=== PATIENT | female | born 1960 | race Caucasian/White ===

== ENCOUNTER 2017-02-06 22:22 | Emergency (ER) | payer MEDICARE, MEDICAID ==
[2017-02-06 22:43] VITALS: BP 161/79
--- NOTE | 2017-02-06 23:22 | EDM.PDOC ---
[id number]: LEG IS BLEEDING Time Seen by Provider: 02/06/17 23:10 Source of Information: Reports: Patient, Family History Limitations: Reports: No Limitations - History of Present Illness INITIAL COMMENTS - FREE TEXT/NARRATIVE: 56-year-old female who has lower extremity edema and has problems with slow healing of wounds and has a history of unna boot treatment was in the shower tonight and rubbed against her lower leg and started bleeding. It was persistent so she came in to have it checked. Now the bleeding seems to be controlled. She does not take anticoagulants. Onset: Sudden (This evening) Location: Reports: Lower Extremity, Left Associated Symptoms: Reports: No Other Symptoms - Related Data Allergies Allergy/AdvReac Type Severity Reaction Status Date / Time adhesive tape Allergy Rash Verified 02/06/17 22:47 cephalexin [From Keflex] Allergy Rash Verified 02/06/17 22:47 Home Meds: Home Meds Calcium Carbonate [Oyster Shell Calcium] 1 cap PO DAILY 02/06/17 [History] Cholecalciferol (Vitamin D3) [Vitamin D3] 1 cap PO DAILY 02/06/17 [History] Cyanocobalamin (Vitamin B-12) [Cyanocobalamin Injection] 1,000 mcg IJ ASDIRECTED 02/06/17 [History] Latanoprost [Xalatan 0.005% Ophth Soln] 2.5 ml EYEBOTH BEDTIME 02/06/17 [History ] Vitamin B Complex [B Complex] 1 cap PO DAILY 02/06/17 [History] Past Medical History HEENT History: Reports: Glaucoma, Macular Degeneration Respiratory History: Reports: Asthma, COPD, Sleep Apnea Other Respiratory History: c-pap Gastrointestinal History: Reports: Cholelithiasis Other Gastrointestinal History: small bowel obstruction SHOWER MAID History: Reports: Dysfunctional Uterine Bleeding Musculoskeletal History: Reports: Other (See Below) Other Musculoskeletal History: degenrative disc lower back Endocrine/Metabolic History: Reports: Diabetes, Type II, Obesity/BMI 30+ Hematologic History: Reports: B12 Deficiency, Iron Deficiency Dermatologic History: Reports: Venous Stasis Dermatitis - Infectious Disease History Infectious Disease History: Reports: Chicken Pox, Measles - Past Surgical History GI Surgical History: Reports: Bariatric Procedure, Cholecystectomy, Colonoscopy , EGD, Hernia Repair/Other, Small Bowel Female Surgical History: Reports: Hysterectomy, Salpingo-Oophorectomy Musculoskeletal Surgical History: Reports: Hip Replacement, Knee Replacement, Shoulder Surgery Other Musculoskeletal Surgeries/Procedures:: all on the right side Social & Family History - Tobacco Use Smoking Status *Q: Never Smoker Second Hand Smoke Exposure: Yes - Caffeine Use Caffeine Use: Reports: Coffee - Recreational Drug Use Recreational Drug Use: No ED ROS GENERAL - Review of Systems Review Of Systems: See Below Constitutional: Denies: Fever, Chills Respiratory: Denies: Shortness of Breath Cardiovascular: Denies: Chest Pain GI/Abdominal: Denies: Nausea, Vomiting Neurological: Denies: Headache Psychiatric: Reports: No Symptoms ED EXAM, SKIN/RASH Exam: See Below Exam Limited By: No Limitations General Appearance: Alert, No Apparent Distress Respiratory/Chest: No Respiratory Distress Extremities: Other (Exam is otherwise limited to the lower extremities. She does have pitting edema bilaterally, and a few superficial abrasions on the left lower anterior leg. They are very shallow and do not appear to extend into subcutaneous tissue. Bleeding is now controlled.) Course - Vital Signs Last Recorded V/S: Last Vital Signs Temp 97.3 F 02/06/17 22:46 Pulse 75 02/06/17 22:46 Resp 20 02/06/17 22:46 BP 161/79 H 02/06/17 22:46 Pulse Ox 98 02/06/17 22:46 - Re-Assessments/Exams Free Text/Narrative Re-Assessment/Exam: 02/06/17 23:21 Nursing applied some Tegaderm over the abrasions and pressure was reapplied. Patient can recheck in the next 1-2 days she has problems or concerns. Avoid any further traumatic irritation of the lower legs Departure - Departure Time of Disposition: 23:38 Disposition: Home, Self-Care 01 Condition: Good Clinical Impression: Leg abrasion, non-infected - Discharge Information Instructions: Abrasion Referrals: Machelle Contreras MD [Primary Care Provider] - Forms: ED Department Discharge Care Plan Goals: Keep wounds covered while healing. Recheck if concerns of infection or not healing satisfactorily.
== END 2017-02-06 23:41 | disposition home or self-care (01) ==
LOC: JP.ED 22:22
DX: S80.812A Abrasion, left lower leg, initial encounter (principal); J45.909 Unspecified asthma, uncomplicated; H40.9 Unspecified glaucoma; E11.9 Type 2 diabetes mellitus without complications; E66.9 Obesity, unspecified; Z68.41 Body mass index [BMI] 40.0-44.9, adult; Z90.49 Acquired absence of other specified parts of digestive tract; Z90.710 Acquired absence of both cervix and uterus; Z96.649 Presence of unspecified artificial hip joint; Z96.659 Presence of unspecified artificial knee joint; Z88.1 Allergy status to other antibiotic agents; Z79.899 Other long term (current) drug therapy; Z98.84 Bariatric surgery status; X58.XXXA Exposure to other specified factors, initial encounter
CPT/HCPCS: 99282; 99283

== ENCOUNTER 2017-06-05 07:25 | Inpatient (IN) | payer MEDICARE, MEDICAID ==
[2017-06-05] MEDS ORDERED: Sodium Chloride 0.9% 10 ML Syringe FLUSH PRN (07:55)
[2017-06-05] MEDS ORDERED: HYDROmorphone 0.5 MG/0.5 ML Syringe IVPUSH ONE ×2 (07:56→08:59)
[2017-06-05] MEDS ORDERED: Ondansetron 4 MG/2 ML SDV IVPUSH ONE (07:56)
[2017-06-05] MEDS ORDERED: Sodium Chloride 0.9% 1,000 ML IV SCH (08:00)
--- NOTE | 2017-06-05 09:04 | EDM.PDOC ---
ED HPI GENERAL MEDICAL PROBLEM - General Chief Complaint: Abdominal Pain Stated Complaint: stomach is HURTING Time Seen by Provider: 06/05/17 07:55 Source of Information: Reports: Patient History Limitations: Reports: No Limitations - History of Present Illness INITIAL COMMENTS - FREE TEXT/NARRATIVE: Pt arrived with pain in the midabdoman. She is not passing gas. She is nauseated but not vomiting. She has a history of bowel obstructions. Onset: Today, Other (pt was well yesterday. ) Duration: Hour(s):, Getting Worse Location: Reports: Abdomen Associated Symptoms: Reports: Nausea/Vomiting, Other ( Pt is nauseated but has not vomited. ) - Related Data Allergies Allergy/AdvReac Type Severity Reaction Status Date / Time adhesive tape Allergy Rash Verified 02/06/17 22:47 cephalexin [From Keflex] Allergy Rash Verified 02/06/17 22:47 Home Meds: Home Meds Calcium Carbonate [Oyster Shell Calcium] 1 cap PO DAILY 02/06/17 [History] Cholecalciferol (Vitamin D3) [Vitamin D3] 1 cap PO DAILY 02/06/17 [History] Cyanocobalamin (Vitamin B-12) [Cyanocobalamin Injection] 1,000 mcg IJ ASDIRECTED 02/06/17 [History] Latanoprost [Xalatan 0.005% Ophth Soln] 2.5 ml EYEBOTH BEDTIME 02/06/17 [History ] Vitamin B Complex [B Complex] 1 cap PO DAILY 02/06/17 [History] Past Medical History HEENT History: Reports: Glaucoma, Macular Degeneration Respiratory History: Reports: Asthma, COPD, Sleep Apnea Other Respiratory History: c-pap Gastrointestinal History: Reports: Cholelithiasis Other Gastrointestinal History: small bowel obstruction HEDIS COORDINATOR History: Reports: Dysfunctional Uterine Bleeding Musculoskeletal History: Reports: Other (See Below) Other Musculoskeletal History: degenrative disc lower back Endocrine/Metabolic History: Reports: Diabetes, Type II, Obesity/BMI 30+ Hematologic History: Reports: B12 Deficiency, Iron Deficiency Dermatologic History: Reports: Venous Stasis Dermatitis - Infectious Disease History Infectious Disease History: Reports: Chicken Pox, Measles - Past Surgical History GI Surgical History: Reports: Bariatric Procedure, Cholecystectomy, Colonoscopy , EGD, Hernia Repair/Other, Small Bowel Female Surgical History: Reports: Hysterectomy, Salpingo-Oophorectomy Musculoskeletal Surgical History: Reports: Hip Replacement, Knee Replacement, Shoulder Surgery Other Musculoskeletal Surgeries/Procedures:: all on the right side Social & Family History - Tobacco Use Smoking Status *Q: Never Smoker Second Hand Smoke Exposure: Yes - Caffeine Use Caffeine Use: Reports: Coffee - Recreational Drug Use Recreational Drug Use: No ED ROS GENERAL - Review of Systems Review Of Systems: See Below Constitutional: Reports: Decreased Appetite HEENT: Reports: No Symptoms Respiratory: Reports: No Symptoms Cardiovascular: Reports: No Symptoms Endocrine: Reports: No Symptoms GI/Abdominal: Reports: Abdominal Pain, Other (pt has pain in mid abdoman. She is post skinny and post rny. ) : Reports: No Symptoms Musculoskeletal: Reports: No Symptoms Skin: Reports: No Symptoms ED EXAM, GI/ABD - Physical Exam Exam: See Below Text/Narrative:: Pt arrived having severe mid abdomanal pain. She is nauseated but is not vomiting. She is bringing alot of mucous in her throat. Exam Limited By: No Limitations General Appearance: Alert, Moderate Distress, Other ( pupils are equal and reactive. ) Eyes: Bilateral: Normal Appearance, EOMI Ears: Normal TMs Nose: Normal Inspection Throat/Mouth: Normal Inspection Head: Atraumatic Neck: Normal Inspection Respiratory/Chest: No Respiratory Distress Cardiovascular: Regular Rate, Rhythm GI/Abdominal Exam: Tender, Other ( Pt has considerable tenderness in the mid abdoman. ) (Female) Exam: Deferred Rectal (Female) Exam: Deferred, Other ( Pt did not have a stool today but has otherwise been regular. ) Back Exam: Normal Inspection Extremities: Normal Inspection Neurological: Alert, Oriented, Normal Cognition Psychiatric: Anxious Course - Vital Signs Last Recorded V/S: Last Vital Signs Temp 36.6 C 06/05/17 08:34 Pulse 83 06/05/17 09:04 Resp 20 06/05/17 09:04 BP 149/64 H 06/05/17 09:04 Pulse Ox 98 06/05/17 09:04 - Orders/Labs/Meds Orders: Active Orders 24 hr Category Date Time Status Abdomen Pelvis w Cont [CT] Stat Exams 06/05/17 09:01 Taken Abdomen Series w Chest 1V [CR] Urgent Exams 06/05/17 07:57 Taken FERRITIN [CHEM] Stat Lab 06/05/17 10:47 Ordered LIPASE [CHEM] Stat Lab 06/05/17 10:49 Ordered UA W/MICROSCOPIC [URIN] Urgent Lab 06/05/17 07:55 Uncollected Iopamidol [Isovue-300 (61%)] Med 06/05/17 09:39 Active 150 ml IV . DIRECTED PRN Pantoprazole [ProTONIX IV] Med 06/05/17 11:00 Ordered 80 mg IVPUSH .BOLUS Sodium Chloride 0.9% [Normal Saline] 1,000 ml Med 06/05/17 08:00 Active IV ASDIRECTED Sodium Chloride 0.9% [Normal Saline] 85 ml Med 06/05/17 09:45 Active IV ASDIRECTED Sodium Chloride 0.9% [Saline Flush] Med 06/05/17 07:55 Active 10 ml FLUSH ASDIRECTED PRN Saline Lock Insert [OM.PC] Routine Oth 06/05/17 07:55 Ordered Medication Orders Sodium Chloride (Normal Saline) 1,000 mls @ 999 mls/hr IV ASDIRECTED NAHEED Last Admin: 06/05/17 08:07 Dose: 999 mls/hr Sodium Chloride (Normal Saline) 85 mls @ 3.5 mls/sec IV ASDIRECTED NAHEED Last Admin: 06/05/17 09:57 Dose: 3 mls/sec Iopamidol (Isovue-300 (61%)) 150 ml IV . DIRECTED PRN PRN Reason: RADIOLOGY EXAM Stop: 06/06/17 09:40 Last Admin: 06/05/17 09:57 Dose: 150 ml Pantoprazole Sodium (Protonix Iv) 80 mg IVPUSH .BOLUS NAHEED Sodium Chloride (Saline Flush) 10 ml FLUSH ASDIRECTED PRN PRN Reason: Keep Vein Open Last Admin: 06/05/17 08:05 Dose: 10 ml Labs: Laboratory Tests 06/05/17 06/05/17 06/05/17 Range/Units 08:04 08:04 08:04 WBC 8.2 (4.5-11.0) K/uL RBC 3.15 L (3.30-5.50) M/uL Hgb 9.6 L (12.0-15.0) g/dL Hct 29.8 L (36.0-48.0) % MCV 95 (80-98) fL MCH 31 (27-31) pg MCHC 32 (32-36) % Plt Count 300 (150-400) K/uL Neut % (Auto) 86 H (36-66) % Lymph % (Auto) 7 L (24-44) % [place] % (Auto) 5 (2-6) % Eos % (Auto) 1 L (2-4) % Baso % (Auto) 0 (0-1) % Sodium 141 (140-148) mmol/L Potassium 4.3 (3.6-5.2) mmol/L Chloride 104 (100-108) mmol/L Carbon Dioxide 32 (21-32) mmol/L Anion Gap 5.4 (5.0-14.0) mmol/L BUN 10 (7-18) mg/dL Creatinine 0.7 (0.6-1.0) mg/dL Est Cr Clr Drug Dosing 69.28 mL/min Estimated GFR (MDRD) > 60 (>60) Glucose 129 H (74-106) mg/dL Calcium 8.8 (8.5-10.1) mg/dL Total Bilirubin 0.6 (0.2-1.0) mg/dL AST 33 (15-37) U/L ALT 25 (12-78) U/L Alkaline Phosphatase 85 (46-116) U/L C-Reactive Protein 4.41 H (0.0-0.3) mg/dL Total Protein 6.3 L (6.4-8.2) g/dL Albumin 3.2 L (3.4-5.0) g/dL Globulin 3.1 (2.3-3.5) g/dL Albumin/Globulin Ratio 1.0 L (1.2-2.2) Meds: Medications Generic Name Dose Route Start Last Admin Trade Name Freq PRN Reason Stop Dose Admin Sodium Chloride 1,000 mls @ 999 mls/hr 06/05/17 08:00 06/05/17 08:07 Normal Saline IV 999 mls/hr ASDIRECTED NAHEED Administration Sodium Chloride 85 mls @ 3.5 mls/sec 06/05/17 09:45 06/05/17 09:57 Normal Saline IV 3 mls/sec ASDIRECTED NAHEED Administration Iopamidol 150 ml 06/05/17 09:39 06/05/17 09:57 Isovue-300 (61%) IV 06/06/17 09:40 150 ml . DIRECTED PRN Administration RADIOLOGY EXAM Pantoprazole Sodium 80 mg 06/05/17 11:00 Protonix Iv IVPUSH .BOLUS NAHEED Sodium Chloride 10 ml 06/05/17 07:55 06/05/17 08:05 Saline Flush FLUSH 10 ml ASDIRECTED PRN Administration Keep Vein Open Discontinued Medications Generic Name Dose Route Start Last Admin Trade Name Freq PRN Reason Stop Dose Admin Hydromorphone HCl 0.5 mg 06/05/17 07:56 06/05/17 08:06 Dilaudid IVPUSH 06/05/17 07:57 0.5 mg ONETIME ONE Administration Hydromorphone HCl 0.5 mg 06/05/17 08:59 06/05/17 09:04 Dilaudid IVPUSH 06/05/17 09:00 0.5 mg ONETIME ONE Administration Hydromorphone HCl 1 mg 06/05/17 09:28 06/05/17 09:35 Dilaudid IVPUSH 06/05/17 09:29 1 mg ONETIME ONE Administration Ondansetron HCl 4 mg 06/05/17 07:56 06/05/17 08:05 Zofran IVPUSH 06/05/17 07:57 4 mg ONETIME ONE Administration Sodium Chloride 10 ml 06/05/17 09:39 06/05/17 09:58 Saline Flush FLUSH 06/05/17 09:40 10 ml ONETIME ONE Administration - Re-Assessments/Exams Free Text/Narrative Re-Assessment/Exam: 06/05/17 10:50 pt has a probale small bowel obstruction and possible internal hernia. Dr Metz was consulted and is admitting. 06/05/17 10:56 pt just got out of the hosp. Dr Canas did a total knee on the rt. Departure - Departure Time of Disposition: 10:52 Disposition: Admitted As Inpatient 64 Condition: Fair Clinical Impression: Small bowel obstruction, H/O gastric bypass - Discharge Information Referrals: Machelle Contreras MD [Primary Care Provider] - Forms: ED Department Discharge Care Plan Goals: admit to Dr Metz - My Orders Last 24 Hours: My Active Orders 06/05/17 07:55 UA W/MICROSCOPIC [URIN] Urgent Sodium Chloride 0.9% [Saline Flush] 10 ml FLUSH ASDIRECTED PRN Saline Lock Insert [OM.PC] Routine 06/05/17 07:57 Abdomen Series w Chest 1V [CR] Urgent 06/05/17 08:00 Sodium Chloride 0.9% [Normal Saline] 1,000 ml IV ASDIRECTED 06/05/17 09:01 Abdomen Pelvis w Cont [CT] Stat 06/05/17 09:39 Iopamidol [Isovue-300 (61%)] 150 ml IV . DIRECTED PRN 06/05/17 09:45 Sodium Chloride 0.9% [Normal Saline] 85 ml IV ASDIRECTED 06/05/17 10:47 FERRITIN [CHEM] Stat 06/05/17 10:49 LIPASE [CHEM] Stat 06/05/17 11:00 Pantoprazole [ProTONIX IV] 80 mg IVPUSH .BOLUS - Assessment/Plan Last 24 Hours: My Active Orders 06/05/17 07:55 UA W/MICROSCOPIC [URIN] Urgent Sodium Chloride 0.9% [Saline Flush] 10 ml FLUSH ASDIRECTED PRN Saline Lock Insert [OM.PC] Routine 06/05/17 07:57 Abdomen Series w Chest 1V [CR] Urgent 06/05/17 08:00 Sodium Chloride 0.9% [Normal Saline] 1,000 ml IV ASDIRECTED 06/05/17 09:01 Abdomen Pelvis w Cont [CT] Stat 06/05/17 09:39 Iopamidol [Isovue-300 (61%)] 150 ml IV . DIRECTED PRN 06/05/17 09:45 Sodium Chloride 0.9% [Normal Saline] 85 ml IV ASDIRECTED 06/05/17 10:47 FERRITIN [CHEM] Stat 06/05/17 10:49 LIPASE [CHEM] Stat 06/05/17 11:00 Pantoprazole [ProTONIX IV] 80 mg IVPUSH .BOLUS
[2017-06-05] MEDS ORDERED: HYDROmorphone 1 MG/ML Syringe IVPUSH ONE (09:28)
[2017-06-05] MEDS ORDERED: Sodium Chloride 0.9% 10 ML Syringe FLUSH ONE (09:39)
[2017-06-05] MEDS ORDERED: Iopamidol 612 MG/ML 150 ML Bottle IV PRN (09:39)
[2017-06-05] MEDS ORDERED: Pantoprazole 40 MG Vial IVPUSH SCH (11:00)
[2017-06-05] MEDS ORDERED: Naloxone 0.4 MG/ML SDV IV PRN (11:53)
[2017-06-05] MEDS ORDERED: Ondansetron 4 MG/2 ML SDV IV PRN (11:57)
[2017-06-05] MEDS ORDERED: Lactated Ringers 1,000 ML IV ONE (12:00)
[2017-06-05] MEDS: HYDROmorphone/Normal Saline 15 MG/30 ML PCA IV PRN (12:20)
[2017-06-05] MEDS ORDERED: Meperidine PF 100 MG/ML Syringe IM ONE (12:28)
[2017-06-05] MEDS ORDERED: hydrOXYzine HCl 100 MG/2 ML SDV IM ONE ×2 (12:28→18:21)
[2017-06-05] MEDS ORDERED: Dextrose 5%-Lactated Ringers 1,000 ML IV SCH (16:00)
[2017-06-05] MEDS ORDERED: cefOXitin 2 GM in Sodium Chloride 0.9% 50 ML IV ONE (17:00)
[2017-06-05] MEDS ORDERED: fentaNYL 250 MCG/5 ML SDV ONE (17:30)
[2017-06-05] MEDS ORDERED: Glycopyrrolate 0.2 MG/ML 5 ML MDV ONE (17:30)
[2017-06-05] MEDS ORDERED: Ondansetron 4 MG/2 ML SDV ONE (17:30)
[2017-06-05] MEDS ORDERED: Neostigmine Methylsulfate 1 MG/ML 5 ML Syringe ONE (17:30)
[2017-06-05] MEDS ORDERED: Midazolam 1 MG/ML 2 ML SDV ONE (17:30)
[2017-06-05] MEDS ORDERED: Rocuronium 50 MG/5 ML Vial ONE ×2 (17:30→19:12)
[2017-06-05] MEDS ORDERED: Propofol 200 MG/20 ML SDV ONE (17:30)
[2017-06-05] MEDS ORDERED: Succinylcholine 200 MG/10 ML MDV ONE (17:30)
[2017-06-05] MEDS ORDERED: Dexamethasone 4 MG/ML SDV ONE (17:30)
[2017-06-05] MEDS ORDERED: Ketamine 500 MG/5 ML MDV ONE (17:31)
[2017-06-05] MEDS ORDERED: Sodium Chloride 0.9% 10 ML ONE (17:33)
[2017-06-05] MEDS ORDERED: Meropenem 500 MG SDV ONE (17:34)
[2017-06-05] MEDS ORDERED: Meropenem 500 MG SDV IV ONE (17:34)
[2017-06-05] MEDS ORDERED: Meropenem 500 MG in Sodium Chloride 0.9% 50 ML IV ONE (17:40)
[2017-06-05] MEDS: fentaNYL 12 MCG/HR Transdermal Patch TRDERM SCH (18:40)
[2017-06-05] MEDS ORDERED: Lactated Ringers 1,000 ML IV SCH (22:15)
[2017-06-05] MEDS ORDERED: hydrOXYzine HCl 100 MG/2 ML SDV IM PRN (22:40)
[2017-06-05] MEDS ORDERED: diphenhydrAMINE 50 MG/ML SDV IVPUSH PRN (22:43)
[2017-06-05] MEDS ORDERED: Labetalol 20 MG/4 ML Syringe IVPUSH PRN (22:46)
[2017-06-05] MEDS ORDERED: Insulin Aspart 100 Units/ML 3 ML Pen SUBCUT ONE (22:53)
[2017-06-05] MEDS ORDERED: Metoclopramide 10 MG/2 ML SDV IVPUSH SCH (23:00)
[2017-06-05] MEDS ORDERED: Scopolamine 1.5 MG Transdermal Patch TRDERM SCH (23:00)
[2017-06-05] MEDS ORDERED: Metoclopramide 10 MG/2 ML SDV IVPUSH PRN (23:37)
[2017-06-06] MEDS ORDERED: Heparin Sodium 5,000 Units/ML Vial SUBCUT SCH
[2017-06-06] MEDS ORDERED: Pantoprazole 40 MG Vial IV SCH ×2 (00:05→21:00)
[2017-06-06] MEDS: Acetaminophen Soln 650 MG/20.3 ML UD Cup PO SCH ×5 (00:56→23:25)
[2017-06-06] MEDS: Meropenem 500 MG in Sodium Chloride 0.9% 50 ML IV SCH ×5 (00:56→23:26)
[2017-06-06] MEDS ORDERED: Labetalol 20 MG/4 ML Syringe IVPUSH PRN (01:14)
[2017-06-06] MEDS: Insulin Aspart 100 Units/ML 3 ML Pen SUBCUT SCH ×4 (04:46→22:18)
[2017-06-06] MEDS ORDERED: Dextrose 5%-Lactated Ringers 1,000 ML IV SCH (07:30)
[2017-06-06] MEDS ORDERED: 50% Dextrose in Water 50 ML Syringe IVPUSH PRN (08:00)
[2017-06-06] MEDS ORDERED: Glucagon,Human Recombinant 1 MG Vial IM PRN (08:00)
[2017-06-06] MEDS ORDERED: CHECK FENTANYL 12 MCG SCH (09:00)
[2017-06-06] MEDS ORDERED: CHECK SCOPOLAMINE PATCH DAILY SCH (09:00)
[2017-06-06] MEDS ORDERED: Gabapentin 250 MG/5 ML Solution ML 470 ML Bottle PO SCH (09:00)
[2017-06-06] MEDS: Magnesium Sulfate/Water 2 GM in Premix Bag 1 BAG IV SCH ×3 (09:46→21:18)
[2017-06-06] MEDS: Celecoxib 200 MG Cap PO SCH (09:47)
[2017-06-06] MEDS: CHECK FENTANYL 12 MCG SCH ×2 (09:49→21:18)
[2017-06-06] MEDS: Gabapentin 250 MG/5 ML Solution ML 470 ML Bottle PO SCH ×3 (09:51→21:21)
--- NOTE | 2017-06-06 09:54 | PN ---
DATE OF SERVICE: 06/06/2017 SUBJECTIVE: Alea is postoperative day 1. Her pain has been controlled. She has been confused on and off during the night. Vital signs have been stable. REVIEW OF SYSTEMS: Remainder of review of systems negative for any pertinent positives and negatives. OBJECTIVE: GENERAL: Alea is a 56-year-old female. She is alert and orientated. VITAL SIGNS: TPR is 98.6, 88, 14, blood pressure 133/74. HEENT: Negative. NECK: Supple. HEART: Regular rate and rhythm. LUNGS: Clear. ABDOMEN: Dressings are dry and intact. She has 2 KARISSA drains, one put out 350 of a pink serosanguineous drainage and KARISSA drain 2 put out 5 mL. Abdominal binder has been on. EXTREMITIES: Without peripheral edema. She does have an Aquacel dressing on her right knee. [facility] ASSESSMENT: 1. Insertion of left subclavian triple-lumen catheter. 2. Exploratory laparotomy with resection and revision of the jejunostomy component. 3. Andreia-en-Y gastric bypass surgery. 4. Enterotomy for tube decompression of the small bowel. 5. Closure of gastrostomy tube. 6. Removal of intraperitoneal mesh. 7. For lymphatic peripheral vascular access, obstruction at the jejunostomy secondary to intussusception, and massive dilation of the biliary pancreatic limb of the small bowel and stomach, and gastric mesh eroded into the gastric antrum and contaminated intraperitoneal mesh. Date of surgery 06/05/2017. PLAN: 1. Decrease IV to 100 mL per hour. 2. Step-2 gastric bypass diet without cereal. 3. Communication order written that Physical Therapy is to consult and treat for right knee replacement. To contact [facility] in regard to order. 4. Note communication written to notify Dr. Vigil that the patient is in [place], [place]. 5. Good pulmonary toilet. 6. We will evaluate p.r.n. or in the a.m. Yasmin Osman PA-C /[id number]
--- NOTE | 2017-06-06 11:10 | CR ---
Abdomen Series w Chest 1V HISTORY: Pain COMPARISON: None. FINDINGS: Chest is clear. Cardiac size normal. Bowel gas pattern is nonobstructive. Surgical clips in the upper left abdomen. Right abdomen and pelvis. Moderate stool throughout the colon. No free air s een.
[2017-06-06] MEDS: Heparin Sodium 5,000 Units/ML Vial SUBCUT SCH ×2 (12:04)
[2017-06-06] MEDS: MVI, Adult with Vitamin K 10 ML, Thiamine 200 MG, Chromium/Copper/Mang/Selen/Zn 1 ML in... IV SCH ×4 (15:43)
[2017-06-06] MEDS: Latanoprost 0.005% Ophth Soln 2.5 ML Bottle EYEBOTH SCH (21:17)
[2017-06-07] MEDS: Heparin Sodium 5,000 Units/ML Vial SUBCUT SCH ×3 (00:55→23:24)
[2017-06-07] MEDS: Dextrose 5%-Lactated Ringers 1,000 ML IV SCH ×2 (02:42→13:17)
[2017-06-07] MEDS ORDERED: Iohexol 647 MG/ML 50 ML SDV PO STA (03:58)
[2017-06-07] MEDS: Magnesium Sulfate/Water 2 GM in Premix Bag 1 BAG IV SCH ×4 (04:45→21:27)
[2017-06-07] MEDS: Acetaminophen Soln 650 MG/20.3 ML UD Cup PO SCH ×4 (04:45→23:24)
[2017-06-07] MEDS: Insulin Aspart 100 Units/ML 3 ML Pen SUBCUT SCH ×4 (04:46→22:16)
[2017-06-07] MEDS: Meropenem 500 MG in Sodium Chloride 0.9% 50 ML IV SCH ×3 (06:46→17:37)
[2017-06-07] MEDS: Celecoxib 200 MG Cap PO SCH (08:00)
[2017-06-07] MEDS: CHECK FENTANYL 12 MCG SCH ×2 (08:01→20:36)
[2017-06-07] MEDS: Gabapentin 250 MG/5 ML Solution ML 470 ML Bottle PO SCH ×3 (08:05→20:37)
[2017-06-07] MEDS ORDERED: Cyanocobalamin (Vitamin B12) 1,000 MCG/ML SDV IM ONE (09:00)
--- NOTE | 2017-06-07 09:09 | CR ---
UGI wo KUB HISTORY: Andreia-en-Y revision COMPARISON: CT scan 06/05/2017. FINDINGS: Contrast extends into the gastric remnant to the efferent loop of the Andreia-en-Y. No extrava sation of contrast. No dilated loops of small bowel. Surgical drain in the low left abdomen and pelvi s. No evidence for complication.
[2017-06-07] MEDS: Potassium Phosphates 20 MMOLE in Sodium Chloride 0.9% 100 ML IV SCH ×3 (10:01→16:05)
[2017-06-07] MEDS: HYDROmorphone/Normal Saline 15 MG/30 ML PCA IV PRN (13:58)
[2017-06-07] MEDS: Lansoprazole 30 MG Orally Disintegrating Tab.CR PO SCH (16:34)
[2017-06-07] MEDS: MVI, Adult with Vitamin K 10 ML, Thiamine 200 MG, Chromium/Copper/Mang/Selen/Zn 1 ML in... IV SCH ×4 (16:38)
[2017-06-07] MEDS: Latanoprost 0.005% Ophth Soln 2.5 ML Bottle EYEBOTH SCH (20:38)
[2017-06-08] MEDS: Magnesium Sulfate/Water 2 GM in Premix Bag 1 BAG IV SCH ×4 (03:43→22:06)
[2017-06-08] MEDS: Dextrose 5%-Lactated Ringers 1,000 ML IV SCH ×3 (03:45→21:42)
[2017-06-08] MEDS: Insulin Aspart 100 Units/ML 3 ML Pen SUBCUT SCH (03:56)
[2017-06-08] MEDS: Acetaminophen Soln 650 MG/20.3 ML UD Cup PO SCH ×4 (05:09→23:12)
[2017-06-08] MEDS ORDERED: Insulin Aspart 100 Units/ML 3 ML Pen SUBCUT SCH (07:00)
[2017-06-08] MEDS ORDERED: HYDROmorphone 2 MG Tab PO PRN (07:19)
[2017-06-08] MEDS: Lansoprazole 30 MG Orally Disintegrating Tab.CR PO SCH (09:36)
[2017-06-08] MEDS: CHECK FENTANYL 12 MCG SCH ×2 (09:37→21:02)
[2017-06-08] MEDS: Gabapentin 250 MG/5 ML Solution ML 470 ML Bottle PO SCH ×3 (09:42→21:08)
--- NOTE | 2017-06-08 10:56 | PN ---
DATE OF SERVICE: 06/08/2017 SUBJECTIVE: Alea is postoperative day #3. She has been receiving physical therapy for her right knee total replacement last week. She is using her SPACE CONTROL AGENT. States her pain is controlled. She has had 4 bowel movements. She did receive 1 unit of packed red blood cells yesterday for hemoglobin of 7.6. Hemoglobin today is 8.6. Vital signs have been stable. Oral intake was 2400, and urine output was 1000. KARISSA drain put out 25 mL of a light pink serosanguineous drainage and the KARISSA drain #2, midline incision drainage put out 15 mL of a darker red drainage. Remainder of review of systems negative for any pertinent positives and negatives. OBJECTIVE: GENERAL: Alea Contreras is a 56-year-old female, alert and oriented. VITAL SIGNS: TPR is 97.7, 80, 16. Blood pressure is 152/80. HEENT: Negative. NECK: Supple. HEART: Regular rate and rhythm. LUNGS: Clear. ABDOMEN: Dressing is dry and intact. KARISSA drains x2 intact. Aquacel dressing is on. Abdominal binder has been on. EXTREMITIES: With trace peripheral edema. ASSESSMENT: 1. Insertion of left subclavian triple-lumen catheter. 2. Exploratory laparotomy with resection of the jejunostomy component of Andreia-en-Y gastric bypass surgery, enterotomy for tube decompression of the small bowel, closure of gastrostomy tube, and removal of intraperitoneal mesh for lymphatic peripheral vascular access, obstruction of the jejunostomy secondary to intussusception, massive dilation of the biliopancreatic limb of the small bowel and stomach, gastric mesh eroded into the gastric antrum, and contaminated intraperitoneal mesh. Date of surgery 06/05/2017. 3. Chronic anemia requiring 1 unit of packed red blood cells for hemoglobin of 7.6. PLAN: 1. Give 1 unit of packed red blood cells now. 2. DC SPACE CONTROL AGENT. 3. DC telemetry. 4. DC continuous pulse ox. 5. Dilaudid 2 mg 1-2 every 4 hours p.r.n. pain. 6. Check CBC, CMP, and phos in the a.m. 7. Good pulmonary toilet. 8. We will evaluate p.r.n. or in the a.m. 9. Tentatively plan discharge in the a.m. Yasmin Osman PA-C /[id number]
[2017-06-08] MEDS: Heparin Sodium 5,000 Units/ML Vial SUBCUT SCH (12:03)
[2017-06-08] MEDS: Celecoxib 200 MG Cap PO SCH (12:03)
[2017-06-08] MEDS: MVI, Adult with Vitamin K 10 ML, Thiamine 200 MG, Chromium/Copper/Mang/Selen/Zn 1 ML in... IV SCH ×4 (16:20)
[2017-06-08] MEDS: fentaNYL 12 MCG/HR Transdermal Patch TRDERM SCH (17:59)
[2017-06-08] MEDS: Latanoprost 0.005% Ophth Soln 2.5 ML Bottle EYEBOTH SCH (21:03)
[2017-06-09] MEDS: Heparin Sodium 5,000 Units/ML Vial SUBCUT SCH (00:03)
[2017-06-09] MEDS: Magnesium Sulfate/Water 2 GM in Premix Bag 1 BAG IV SCH (03:57)
[2017-06-09] MEDS: Acetaminophen Soln 650 MG/20.3 ML UD Cup PO SCH ×2 (05:15→11:48)
[2017-06-09] MEDS: Lansoprazole 30 MG Orally Disintegrating Tab.CR PO SCH (08:06)
[2017-06-09] MEDS: Celecoxib 200 MG Cap PO SCH (08:06)
[2017-06-09] MEDS: Gabapentin 250 MG/5 ML Solution ML 470 ML Bottle PO SCH (08:07)
[2017-06-09 09:32] VITALS: BP 127/66
[2017-06-09] MEDS ORDERED: fentaNYL 12 MCG/HR Transdermal Patch TRDERM ONE (12:00)
[2017-06-09] MEDS: CHECK FENTANYL 12 MCG SCH (12:05)
--- NOTE | 2017-06-10 13:17 | PN ---
DATE OF SERVICE: 06/07/2017 The patient has been afebrile with stable vital signs, still a little bit dizzy today after her upper GI. Her hemoglobin did drop into the mid 7s, and we will transfuse her 1 unit of packed RBCs today. She may have some bleeding from GI tract, as I doubt there is any intraperitoneal bleeding based on the appearance of her drains and such. Potassium and phosphate are at the lower end of normal and will supplement those today. Upper GI x-ray looked good with good flow through the GI tract and will go up to step-3 diet today. Discontinue her Armstrong catheter. KARISSA #1 is putting out quite a bit of a serous-type fluid, and we will remove that today to avoid ongoing protein loss, leaving the KARISSA in the incision in place. We will continue the present pain management today, mostly likely getting her over to oral pain medicine tomorrow. Froilan Metz MD /[id number]
--- NOTE | 2017-06-12 15:11 | OR ---
DATE OF PROCEDURE: 06/05/2017 PREOPERATIVE DIAGNOSES: 1. Small bowel obstruction. 2. Limited peripheral venous access. POSTOPERATIVE DIAGNOSES: 1. Limited peripheral venous access. 2. Small bowel obstruction at jejunojejunostomy secondary to intussusception. 3. 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 4. [employer]-Hema mesh eroded into the gastric antrum. 5. Contaminated intraperitoneal mesh. OPERATIVE PROCEDURES: 1. Insertion of left subclavian vein triple-lumen catheter (50212). 2. Exploratory laparotomy with:. a. Resection, revision of jejunojejunostomy component of Andreia-en-Y gastric bypass (96626). b. Tube enterotomy for decompression of the small bowel (51588). c. Closure of gastrotomy at point of mesh eroding into the gastric antrum (09413). d. Removal of intraperitoneal mesh (99709). e. Placement of Vicryl mesh to displace viscera from pelvic and abdominal wall to limit recurrent adhesion formation (18279). ANESTHESIA: General. INDICATION FOR PROCEDURE: The patient was admitted earlier this morning with a picture of small bowel obstruction and on examination, the patient was noted to be increasingly uncomfortable and given this is to undergo laparotomy at this time. It would appear that the patient has an obstructive biliopancreatic limb which would make this is a closed loop obstruction potentially necessitating early surgical treatment. Potential risks of the procedure including bleeding, infection, leaks from various GI tract closures, as well as possibility of cardiopulmonary, septic, or hemorrhagic complications leading to were discussed, and the patient wishes to proceed. DETAILS OF PROCEDURE: The patient was taken to the operating room and placed in a supine position. After general endotracheal anesthesia was induced, a Armstrong catheter was inserted and the abdomen prepped and draped. An upper midline incision was made and carried down through the full thickness of the abdominal wall. Upon entering the peritoneal cavity, as expected, there was a massively distended obstruction of small bowel. This was traced downward and this was noted to be involved in an intussusception with some of the common limb being sucked well into the area of intussusception. The biliopancreatic limb proximal to this was massively dilated as was the bypassed portion of the stomach. At this point, a decision was made to revise and resect the jejunojejunostomy, 3 components leading into that were then divided at the bowel level with SHARLA cisneros loads and the inner mesentery divided with mesenteric loads and the specimen delivered from the field. At this point, the enterotomy was placed at the divided end of the biliopancreatic limb, and a [place] sump tube passed a large volume of air and bilious material was then aspirated. This resulted as nice decompression of the biliopancreatic limb including the duodenum and the bypassed portion of the stomach. At that point, the catheter was withdrawn and that area then stapled off with a SHARLA stapler. The revision of the jejunojejunostomy as anticipated with preoperative discussion with the patient would be designed such that it should facilitate some improved additional weight loss. The plan is at this point to give the patient 150 cm Andreia limb and a 200 cm common limb. Additionally, the bowel that consisted of the divided end of the biliopancreatic limb was anastomosed to what had been beginning of the common limb with a [id number] enteroenterostomy with a layer stapler technique using cisneros and purple loads, angles anastomosed, and mesenteric defect were then approximated with some 0 Ethibond stitch. At this point, the Andreia limb was then traced out in order to be 130 cm. Given this, then the ileocecal valve was identified and the small bowel then traced back 200 cm proximal to that level. The [id number] enteroenterostomy was accomplished between the end of the Andreia limb and the bowel at that level with the same stapler and sequence of loads and the angles anastomosed and mesenteric defect likewise closed off with 2-0 silk stitch. One additional area of pathology was that the patient had a previous replaced [employer] Randolph-Hema mesh. This was obviously potentially contaminated at this point. It was also noted to have eroded into the antrum of the stomach as the mesh was then being taken out with division of the abdominal wall downward to the point of the entrance into the antrum was encountered. This was dissected free from the antrum. The closure of the antrum was then accomplished with a SHARLA black load, reinforced with 3-0 Vicryl seromuscular stitch. At this point, with the mesh having been removed, the abdomen was irrigated with meropenem-containing saline solution to limit recurrent adhesion formation between the pelvic and abdominal wall. Vicryl mesh was then placed down posterior to the urinary bladder up against the lateral pelvic garza and the abdominal wall. The midline fascia was then approximated with #2 Vicryl stitch. A 10-Khmer round Jeremiah-Jimenes drain was placed through a stab wound inferior to the main incision and placed across the bed of incision which was then closed with 2 layers of 3-0 Vicryl stitch deep and raquel for the skin. At the onset of the operation, the patient as noted preoperatively had very poor peripheral venous access and given this, the upper chest and neck areas were then prepped and draped and the left subclavian vein catheter passed over the guidewire, a triple-lumen catheter was positioned. Good in and outflow was noted. The ports were flushed with heparinized saline and the catheter sutured to skin with some 3-0 silk stitch and subsequent chest x-ray showed good catheter position and no evident complications. The patient was taken to the recovery room in satisfactory condition. Froilan Metz MD /[id number]
--- NOTE | 2017-06-12 15:23 | DISCH ---
FINAL DIAGNOSES: 1. Obstruction at jejunojejunostomy secondary to intussusception. 2. Massive dilation of biliopancreatic limb of the small bowel and stomach. 3. [place]-Hema mesh eroded into the gastric antrum. 4. Contaminated intraperitoneal mesh. 5. Limited peripheral venous access. 6. Bariatric surgery status. 7. Recent knee replacement. OPERATIVE PROCEDURE: Done on 06/05: 1. Insertion of left subclavian vein triple-lumen catheter. 2. Exploratory laparotomy with:. a. Resection and revision of jejunojejunostomy component of Andreia-en-Y gastric bypass. b. Enterotomy for tube decompression of small bowel. c. Closure of gastrotomy at the site of mesh erosion into the stomach. d. Removal of intraperitoneal mesh. HOSPITAL COURSE: This is a 56-year-old status post Andreia-en-Y gastric bypass approximately 10 years ago presenting with a picture of small bowel obstruction. Initially, we are going to admit the patient for observation overnight, but the pain became worse and during the day of admission, the patient underwent the above noted procedure. She had a massive dilation of the pancreatic limb related to intussusception at the jejunojejunostomy and this area was revised. The jejunojejunostomy was repositioned in such a way that she would likely lose some additional weight as well as have overall control of her diabetes status. Postoperatively, no major problems have been noted. She will be discharged home on a step-4 diet and she is moving her bowels. KARISSA drain and the incision will be left in place, and follow up will be with Yasmin Osman at [facility] this coming Tuesday on June 17. She is also recently status post a knee replacement per Dr. Vigil in [place], and she will be following up with him as well as continue the rehab that she was doing at home prior to the present hospitalization. DISCHARGE MEDICATIONS: Include continuation of her home medications. She has a 12 mcg fentanyl patch which she will be instructed to remove on 06/13/2017, otherwise, she will be started on Celebrex 200 mg daily, #30, refill x3. She does have some hydrocodone at home for the knee surgery which she may or may not need, but certainly has available as necessary.
== END 2017-06-09 12:50 | disposition home or self-care (01) | DRG 327 ==
LOC: JP.ED 07:25 → JP.2SS 11:05
PROVIDERS: ADMIT Surgery; ATTEND Physician Assistant Medical
PROC: 0DBA0ZZ Excision of Jejunum, Open Approach (ICD-10-PCS; principal; 2017-06-05)
PROC: 0D990ZZ Drainage of Duodenum, Open Approach (ICD-10-PCS; 2017-06-05)
PROC: 0WPF0JZ Removal of Synthetic Substitute from Abdominal Wall, Open Approach (ICD-10-PCS; 2017-06-05)
PROC: 0DQ60ZZ Repair Stomach, Open Approach (ICD-10-PCS; 2017-06-05)
PROC: 3E0M05Z Introduction of Adhesion Barrier into Peritoneal Cavity, Open Approach (ICD-10-PCS; 2017-06-05)
PROC: 05H633Z Insertion of Infusion Device into Left Subclavian Vein, Percutaneous Approach (ICD-10-PCS; 2017-06-05)
PROC: 30233N1 Transfusion of Nonautologous Red Blood Cells into Peripheral Vein, Percutaneous Approach (ICD-10-PCS; 2017-06-07)
PROC: 30233N1 Transfusion of Nonautologous Red Blood Cells into Peripheral Vein, Percutaneous Approach (ICD-10-PCS; 2017-06-08)
DX: K56.609 Unspecified intestinal obstruction, unspecified as to partial versus complete obstruction (principal); K56.1 Intussusception; T83.718A Erosion of other implanted mesh to organ or tissue, initial encounter; K59.8 Other specified functional intestinal disorders; R10.9 Unspecified abdominal pain; H35.30 Unspecified macular degeneration; H40.9 Unspecified glaucoma; E53.8 Deficiency of other specified B group vitamins; G47.30 Sleep apnea, unspecified; Z86.39 Personal history of other endocrine, nutritional and metabolic disease; Z98.84 Bariatric surgery status; Z98.0 Intestinal bypass and anastomosis status; Z96.641 Presence of right artificial hip joint; Z96.651 Presence of right artificial knee joint; Z88.1 Allergy status to other antibiotic agents; Z91.048 Other nonmedicinal substance allergy status; D64.89 Other specified anemias; Z98.890 Other specified postprocedural states
CPT/HCPCS: 36415; 74022 ×2; 74177; 80053; 82728; 83690; 85025; 86140; 96361; 96374; 96375; 96376; 99285; J1170 ×3; J2405; J7030; J7040; J7050 ×2; 36430; 71010; 74240; 74240-26; 81001; 82962; 83735; 83880; 84100; 85027; 86850; 86900; 86901; 86920; 86922; 88300; 88307; 97110-GP; 97116-GP; 97162-GP; 97530-GP; 99284; A9270-GY; C1781; C9113; J0330; J1100; J1642; J1644; J2175; J2185; J2250; J2704; J2710; J3010; J3410; J3411; J3420; J3475; J3490; J7042; J7120; P9016; Q9967

== ENCOUNTER 2017-10-06 05:31 | Inpatient (IN) | payer MEDICARE, MEDICAID ==
[2017-10-06] MEDS ORDERED: Scopolamine 1.5 MG Transdermal Patch TOP ONE (05:45)
[2017-10-06] MEDS ORDERED: Acetaminophen 500 MG Tab PO ONE (05:45)
[2017-10-06] MEDS ORDERED: Dextrose 5%-Lactated Ringers 1,000 ML IV SCH (06:00)
[2017-10-06] MEDS ORDERED: Meropenem 500 MG SDV ONE (06:29)
[2017-10-06] MEDS ORDERED: Bupivacaine 0.5%/EPINEPHrine 1:200,000 50 ML MDV ONE (06:30)
[2017-10-06] MEDS ORDERED: fentaNYL 250 MCG/5 ML SDV ONE (06:59)
[2017-10-06] MEDS ORDERED: Succinylcholine 200 MG/10 ML MDV ONE (07:00)
[2017-10-06] MEDS ORDERED: Propofol 200 MG/20 ML SDV ONE (07:00)
[2017-10-06] MEDS ORDERED: Dexamethasone 4 MG/ML SDV ONE (07:00)
[2017-10-06] MEDS ORDERED: Glycopyrrolate 0.2 MG/ML 5 ML MDV ONE (07:00)
[2017-10-06] MEDS ORDERED: Neostigmine Methylsulfate 1 MG/ML 5 ML Syringe ONE (07:00)
[2017-10-06] MEDS ORDERED: Ondansetron 4 MG/2 ML SDV ONE (07:00)
[2017-10-06] MEDS ORDERED: HYDROmorphone/Normal Saline 15 MG/30 ML PCA IV PRN (07:15)
[2017-10-06] MEDS ORDERED: Naloxone 0.4 MG/ML SDV IVPUSH PRN (07:15)
[2017-10-06] MEDS ORDERED: Naloxone 0.4 MG/ML SDV IV PRN (07:29)
[2017-10-06] MEDS ORDERED: Clindamycin Phosphate 900 MG in Sodium Chloride 0.9% 100 ML IV ONE (07:30)
[2017-10-06] MEDS ORDERED: Ketamine 500 MG/5 ML MDV IV SCH (07:45)
[2017-10-06] MEDS ORDERED: Ropivacaine 51 ML, Dexamethasone 8 MG, EPINEPHrine 0.4 MG, Sodium Chloride 0.9% 26.6 ML NERVRT SCH ×4 (07:45)
[2017-10-06] MEDS ORDERED: Lidocaine 2% 100 MG/5 ML Syringe IVPUSH ONE (07:45)
[2017-10-06] MEDS ORDERED: Lidocaine 0.4%/D5W 2 GM/500 ML BAG IV SCH (07:45)
[2017-10-06] MEDS ORDERED: Linezolid 200 MG/100 ML Bag IRR ONE (09:12)
[2017-10-06] MEDS ORDERED: hydrOXYzine HCl 100 MG/2 ML SDV IM ONE (10:30)
[2017-10-06] MEDS: Ketoconazole 2% Crm 30 GM Tube TOP SCH ×2 (11:00→20:53)
[2017-10-06] MEDS: Lidocaine 0.4%/D5W 2 GM/500 ML BAG IV SCH (12:12)
[2017-10-06] MEDS ORDERED: Cyclobenzaprine 10 MG Tab PO PRN (13:06)
[2017-10-06] MEDS ORDERED: diphenhydrAMINE 25 MG Cap PO PRN (13:07)
[2017-10-06] MEDS: Clindamycin Phosphate 900 MG in Sodium Chloride 0.9% 100 ML IV SCH ×2 (13:37→22:21)
[2017-10-06] MEDS: Acetaminophen 500 MG Tab PO SCH ×2 (13:41→19:46)
[2017-10-06] MEDS ORDERED: Albuterol/Ipratropium 3.0-0.5 MG/3 ML Neb Soln INH PRN (14:00)
[2017-10-06] MEDS ORDERED: Ondansetron 4 MG/2 ML SDV IVPUSH PRN (14:00)
[2017-10-06] MEDS ORDERED: diphenhydrAMINE 50 MG/ML SDV IVPUSH PRN (14:00)
[2017-10-06] MEDS: Dextrose 5%-Lactated Ringers 1,000 ML IV SCH ×2 (15:20→22:19)
[2017-10-06] MEDS: Albuterol/Ipratropium 3.0-0.5 MG/3 ML Neb Soln INH SCH ×2 (15:22→20:51)
[2017-10-06] MEDS: Enoxaparin 40 MG/0.4 ML Syringe SUBCUT SCH (17:19)
[2017-10-06] MEDS: Latanoprost 0.005% Ophth Soln 2.5 ML Bottle EYEBOTH SCH (20:53)
[2017-10-07] MEDS: Acetaminophen 500 MG Tab PO SCH ×4 (02:23→19:20)
[2017-10-07] MEDS: Dextrose 5%-Lactated Ringers 1,000 ML IV SCH ×2 (05:28→15:25)
[2017-10-07] MEDS: Enoxaparin 40 MG/0.4 ML Syringe SUBCUT SCH ×2 (05:54→17:13)
[2017-10-07] MEDS: Clindamycin Phosphate 900 MG in Sodium Chloride 0.9% 100 ML IV SCH (05:54)
[2017-10-07] MEDS: Lidocaine 0.4%/D5W 2 GM/500 ML BAG IV SCH (05:55)
[2017-10-07] MEDS: Albuterol/Ipratropium 3.0-0.5 MG/3 ML Neb Soln INH SCH ×4 (07:18→22:33)
[2017-10-07] MEDS ORDERED: Cyclobenzaprine 10 MG Tab PO PRN (07:48)
[2017-10-07] MEDS ORDERED: Amitriptyline 25 MG Tab PO PRN (07:48)
[2017-10-07] MEDS: SCOPOLAMINE PATCH CHECK TOP SCH (08:29)
--- NOTE | 2017-10-07 08:32 | PN ---
DATE OF SERVICE: 10/07/2017 SUBJECTIVE: Alea is postop day #1. She has been up ambulating. Vital signs have been stable. Pain is controlled. REVIEW OF SYSTEMS: Remainder of review of systems is negative for any pertinent positives and negatives. OBJECTIVE: GENERAL: Alea is a 57-year-old female, alert and orientated, sitting up in chair. Color pale. VITAL SIGNS: TPR is 98, 79, 18. Blood pressure 144/68. HEENT: Negative. NECK: Supple. HEART: Regular rate and rhythm. LUNGS: Clear. ABDOMEN: Dressings dry and intact. Abdominal binder is on. EXTREMITIES: Without peripheral edema. ASSESSMENT: Diagnostic laparoscopy turned to laparotomy with lysis of adhesions, repair of recurrent incarcerated incisional hernia with mesh, repair of umbilical hernia with mesh, and repair of deserosalized debridement and placement of Vicryl mesh, for multifocal recurrent incarcerated incisional hernia, incarcerated umbilical hernia, densely adherent duodenal stump to abdominal wall and extensive intraabdominal adhesions. Date of surgery 10/06/2017. PLAN: 1. Step-4 gastric bypass. 2. Decrease IV to 100 mL per hour. 3. Continue PHYSICAL THERAPY MANAGER and continuous pulse ox. 4. Good pulmonary toilet. 5. We will evaluate p.r.n. or in the a.m. Yasmin Osman PA-C /[id number]
[2017-10-07] MEDS: INCRUSE ELLIPTA INH SCH (08:39)
[2017-10-07] MEDS ORDERED: [UNRECOGNIZED DRUG - SUPPLY] SCH (09:00)
[2017-10-07] MEDS: Ketoconazole 2% Crm 30 GM Tube TOP SCH ×2 (10:23→22:34)
[2017-10-07] MEDS: Latanoprost 0.005% Ophth Soln 2.5 ML Bottle EYEBOTH SCH (22:37)
[2017-10-08] MEDS: Acetaminophen 500 MG Tab PO SCH (01:09)
[2017-10-08] MEDS: Dextrose 5%-Lactated Ringers 1,000 ML IV SCH (01:10)
[2017-10-08] MEDS: Enoxaparin 40 MG/0.4 ML Syringe SUBCUT SCH ×2 (06:37→17:29)
[2017-10-08] MEDS: INCRUSE ELLIPTA INH SCH (07:14)
[2017-10-08] MEDS: Albuterol/Ipratropium 3.0-0.5 MG/3 ML Neb Soln INH SCH ×4 (07:16→21:42)
[2017-10-08] MEDS: SCOPOLAMINE PATCH CHECK TOP SCH (08:28)
[2017-10-08] MEDS: Acetaminophen/oxyCODONE 325-5 MG Tab PO PRN ×4 (08:36→21:43)
[2017-10-08] MEDS: Docusate Sodium 100 MG Cap PO SCH ×2 (08:39→21:41)
[2017-10-08] MEDS: Bisacodyl 5 MG Tab PO SCH ×3 (08:39→21:42)
[2017-10-08] MEDS: Ketoconazole 2% Crm 30 GM Tube TOP SCH ×2 (08:40→21:43)
[2017-10-08] MEDS: Latanoprost 0.005% Ophth Soln 2.5 ML Bottle EYEBOTH SCH (21:42)
[2017-10-09] MEDS: Acetaminophen/oxyCODONE 325-5 MG Tab PO PRN ×2 (03:20→08:12)
[2017-10-09] MEDS: Enoxaparin 40 MG/0.4 ML Syringe SUBCUT SCH (06:49)
[2017-10-09] MEDS: INCRUSE ELLIPTA INH SCH (07:18)
[2017-10-09] MEDS: Albuterol/Ipratropium 3.0-0.5 MG/3 ML Neb Soln INH SCH (07:36)
[2017-10-09 07:47] VITALS: BP 148/73
[2017-10-09] MEDS ORDERED: Magnesium Hydroxide 400 MG/5 ML Susp 30 ML Cup PO PRN (08:02)
[2017-10-09] MEDS: Docusate Sodium 100 MG Cap PO SCH (08:13)
[2017-10-09] MEDS: Bisacodyl 5 MG Tab PO SCH (08:13)
[2017-10-09] MEDS: Ketoconazole 2% Crm 30 GM Tube TOP SCH (08:13)
--- NOTE | 2017-10-10 09:25 | PN ---
DATE OF SERVICE: 10/08/2017 The patient has been afebrile with stable vital signs. Oral intake appears to be good. She has not moved her bowels as of yet. We will give her some bowel stimulation today, go over to oral pain medication, and have her get in the shower. She may be ready for discharge home tomorrow. Froilan Metz MD /[id number]
--- NOTE | 2017-10-10 12:06 | DISCH ---
FINAL DIAGNOSES: 1. Multifocal recurrent incarcerated incisional hernia. 2. Incarcerated umbilical hernia. 3. Densely adherent duodenal stump to abdominal wall. 4. Extensive intraabdominal adhesions. 5. Bariatric surgery status. 6. Chronic obstructive pulmonary disease. 7. Pre-diabetes. OPERATIVE PROCEDURES: Done on 10/06/2017; diagnostic laparoscopy converted to laparotomy with lysis of extensive adhesions and; 1. Repair of recurrent incarcerated incisional hernia with mesh. 2. Repair of incarcerated umbilical hernia with mesh. 3. Repair of deserosalized duodenum. 4. Placement of Vicryl mesh to displace the pelvic and abdominal garza from underlying viscera to limit recurrent adhesion formation. HOSPITAL COURSE: This is a 57-year-old presenting with multifocal recurrent incisional hernia. The patient underwent initial diagnostic laparoscopy. It was noted that the viscera were densely adherent up into the areas of the hernia and was converted into an open approach. Extensive lysis of adhesions was undertaken. The patient had a duodenal stump that was essentially fused to the abdominal wall. This was taken down. The portion of this was deserosalized and that was repaired by means of resection of the end of the duodenal stump. Otherwise, the patient had a large area of mesh placed and also then Vicryl mesh underlying that to limit recurrent adhesion formation between the pelvic and abdominal garza and underlying viscera. Postoperatively, the patient has done well and will be sent home on her usual medications plus Percocet 5/325 mg 1 or 2 tabs q.4 hours p.r.n. pain, #50; Flexeril 10 mg p.o. t.i.d. p.r.n. muscle pain, #25, refill x1. She will also receive some milk of magnesia. Instructed her to keep some pressure over the hernia repairs x2 weeks with a binder. To follow with Yasmin Osman in [facility] on 10/18/2017 at 10 a.m.
--- NOTE | 2017-10-10 14:51 | OR ---
DATE OF PROCEDURE: 10/06/2017 PREOPERATIVE DIAGNOSIS: Recurrent incarcerated incisional hernia. POSTOPERATIVE DIAGNOSES: 1. Multifocal recurrent incarcerated incisional hernia. 2. Incarcerated umbilical hernia. 3. Dense inflammatory adherence of duodenal stump to abdominal wall. 4. Extensive intra-abdominal adhesions. OPERATIVE PROCEDURES: Diagnostic laparoscopy converted to laparotomy with lysis of extensive adhesions: 1. Repair of recurrent incarcerated incisional hernia with mesh (81504, 02872). 2. Repair of incarcerated umbilical hernia with mesh (61454). 3. Repair of area of deserosalization of duodenal stump (47379). 4. Placement of Vicryl mesh to displace pelvic and abdominal wall contents from viscera to limit recurrent adhesion formation (26304). ANESTHESIA: General. CENTER MEDICAL AND LAB DIRECTOR: Yasmin Osman PA-C. INDICATION FOR PROCEDURE: This is a 57-year-old presenting with large increasingly symptomatic incisional hernia, which has not been entirely reducible. Plan is to proceed with a diagnostic laparoscopy and laparotomy if necessary, and repair of the hernia with mesh. Potential risks including bleeding, infection, recurrence of the hernia, problems with mesh becoming infected, injury to underlying viscera, as well as the remote possibility of cardiopulmonary, septic, or hemorrhagic complications leading to were discussed, and the patient wishes to proceed. DETAILS OF PROCEDURE: The patient was taken to the operating room and placed in a supine position. After general endotracheal anesthesia was induced, using a continuous ultrasound guidance, bilateral transversus abdominis plane blocks were placed. These were centered over the lateral aspect of the abdomen, covering more or less the central abdomen. This was done with continuous ultrasound guidance and standard injection placed into the transversus abdominis plane bilaterally. At this point, the right lateral abdomen was entered with an Optiview trocar and inflated to 15 mmHg pressure with CO2. The initial examination with the laparoscope at this point showed quite marked adhesions between the transverse colon, duodenum, and the areas of herniation. These appeared to be quite dense, particularly duodenal adhesions, more or less fused with the abdominal wall. Given this, the decision was made to proceed with an open approach. The trocars were removed, and the peritoneal cavity was deflated. An upper midline incision was made and carried down through the skin and subcutaneous tissue, in an area that had been marked preoperatively as not having bowel within it. It was then entered and hernia sacs essentially dissected free from the abdominal wall. The transverse colon was initially dissected away from the abdominal wall. The duodenum was noted to be almost fused with the abdominal wall, this being the duodenal stump with the patient having previous total gastrectomy. As this was dissected back, the stump of this was quite deserosalized, and this was repaired by means of excision of the duodenal stump with a SHARLA black load. The instruments used for this phase of the procedure were then discarded and new gloves obtained. The patient was noted to have a multifocal incisional hernia and also incarcerated umbilical hernia, which contained some omentum. This was reduced and excised from the hernia site with electrocautery. At that point, the mesh was mapped out to be used in this case. A 22.1 x 27.[address] Hernia Patch was then selected. This was placed in a somewhat oblique manner as the patient had a significant amount of herniation toward the left of the umbilicus as well as somewhat inferior to it. This mesh then covered all 3 of the areas of herniation satisfactorily at 5 cm intervals around its circumference. The mesh was affixed with some 0 Vicryl stitch. The mesh was then soaked in antibiotic-containing saline solution and placed in the intraperitoneal location. Prior to this, stab wounds had been made and one of the suture will be pulled up, thus fixing the mesh well away from the areas of herniation. The lower half of these was then placed and to limit recurrent adhesion formation, then a 12-inch square Vicryl mesh was placed. This was positioned down into the pelvis, along the pelvic sidewalls, and up against the abdominal wall and underneath the mesh as well, thus displacing the viscera away from those structures and limit recurrent adhesion formation. The remaining sutures were then pulled up, and the mesh was confirmed to have good coverage in all directions around the various hernias. The mesh was then affixed on its underlying shelf with titanium tacking screws to the abdominal wall circumferentially as well. At that point, no further problems were noted. The midline fascia was then approximated with #2 Vicryl stitch, and the skin with raquel. The patient was taken to the recovery room in a satisfactory condition. Physician speech language pathology assistant, Yasmin Osman, played an essential role assisting in this case, helping to position the patient, retract structures as needed, as well as suturing and cutting sutures when indicated. Her presence improved patient safety and decreased the operative time. Froilan Metz MD /[id number]
== END 2017-10-09 10:18 | disposition home or self-care (01) | DRG 336 ==
LOC: JP.SDS 05:31 → JP.MS 05:31 → EDSTATUS 09:30 → JP.2SS 09:45
PROVIDERS: ADMIT Surgery; ATTEND Surgery
PROC: 0WUF0JZ Supplement Abdominal Wall with Synthetic Substitute, Open Approach (ICD-10-PCS; principal; 2017-10-06)
PROC: 0WJF4ZZ Inspection of Abdominal Wall, Percutaneous Endoscopic Approach (ICD-10-PCS; 2017-10-06)
PROC: 0WUF0JZ Supplement Abdominal Wall with Synthetic Substitute, Open Approach (ICD-10-PCS; 2017-10-06)
PROC: 0DN90ZZ Release Duodenum, Open Approach (ICD-10-PCS; 2017-10-06)
PROC: 0DNW0ZZ Release Peritoneum, Open Approach (ICD-10-PCS; 2017-10-06)
PROC: 0DB90ZX Excision of Duodenum, Open Approach, Diagnostic (ICD-10-PCS; 2017-10-06)
PROC: 0DNL0ZZ Release Transverse Colon, Open Approach (ICD-10-PCS; 2017-10-06)
PROC: 3E0T3BZ Introduction of Anesthetic Agent into Peripheral Nerves and Plexi, Percutaneous Approach (ICD-10-PCS; 2017-10-06)
DX: K43.0 Incisional hernia with obstruction, without gangrene (principal); K91.2 Postsurgical malabsorption, not elsewhere classified; K42.0 Umbilical hernia with obstruction, without gangrene; K66.0 Peritoneal adhesions (postprocedural) (postinfection); Z53.31 Laparoscopic surgical procedure converted to open procedure; Z98.84 Bariatric surgery status; I10 Essential (primary) hypertension; J44.9 Chronic obstructive pulmonary disease, unspecified; I73.9 Peripheral vascular disease, unspecified; D50.9 Iron deficiency anemia, unspecified; E53.8 Deficiency of other specified B group vitamins; M19.90 Unspecified osteoarthritis, unspecified site; Z86.711 Personal history of pulmonary embolism; F32.9 Major depressive disorder, single episode, unspecified; Z88.1 Allergy status to other antibiotic agents; Z91.048 Other nonmedicinal substance allergy status; Z91.09 Other allergy status, other than to drugs and biological substances; R73.03 Prediabetes
CPT/HCPCS: 82962; 88305; 94640; 94762; A9270-GY; C1781; J0171; J0330; J1100; J1170; J1650; J2001; J2020; J2185; J2405; J2704; J2710; J2795; J3010; J3410; J7030; J7042; J7050; J7620; S0077

== ENCOUNTER 2017-12-23 18:42 | Emergency (ER) | payer MEDICARE, MEDICAID ==
[2017-12-23 19:52] VITALS: BP 145/67
--- NOTE | 2017-12-23 20:37 | EDM.PDOC ---
ED HPI GENERAL MEDICAL PROBLEM - General Chief Complaint: Abdominal Pain Stated Complaint: PAIN NEAR SURGERY SCAR ON STOMACH Time Seen by Provider: 12/23/17 20:20 Source of Information: Reports: Patient History Limitations: Reports: No Limitations - History of Present Illness INITIAL COMMENTS - FREE TEXT/NARRATIVE: Abdominal pain to incision site today with gradual worsening. ABD Pain Score (Numeric/FACES): 9 - Related Data Allergies Allergy/AdvReac Type Severity Reaction Status Date / Time dog dander Allergy Intermediate Difficulty Verified 12/23/17 20:05 Breathing adhesive tape Allergy Rash Verified 12/23/17 20:05 cephalexin [From Keflex] Allergy Rash Verified 12/23/17 20:05 Home Meds: Home Meds Calcium Carbonate [Oyster Shell Calcium] 500 mg PO BID 02/06/17 [History] Cholecalciferol (Vitamin D3) [Vitamin D3] 5,000 units PO DAILY 02/06/17 [History ] Cyanocobalamin (Vitamin B-12) [Cyanocobalamin Injection] 1,000 mcg IJ Q30D 02/06 [History] Vitamin B Complex [B Complex] 1 cap PO DAILY 02/06/17 [History] Bacitracin [Bacitracin Oint] 1 cm TOP BID PRN 07/04/17 [History] Multivit-Min/Iron/Folic Acid/K [Centravites Adults Tablet] 1 each PO DAILY 07/04 [History] Triamcinolone Acetonide [Triamcinolone Acetonide 0.1% Oint] 1 cm TOP BID PRN [History] Umeclidinium [place] [Incruse Ellipta*] 1 puff IH DAILY 07/04/17 [History] Cyclobenzaprine [Flexeril] 5 mg PO BEDTIME PRN 10/04/17 [History] Eye Patch [Opticlude] 1 patch TOP DAILY 10/04/17 [History] diphenhydrAMINE [Benadryl] 25 mg PO Q6H PRN 10/04/17 [History] Celecoxib [CeleBREX] 200 mg PO DAILY 10/06/17 [History] Ketoconazole [Nizoral 2% Crm] 1 applic TOP BID PRN 10/06/17 [History] Cyclobenzaprine [Flexeril] 10 mg PO TID PRN #25 tab 10/09/17 [Rx] Magnesium Hydroxide [Milk of Magnesia] 30 ml PO DAILY PRN 12/23/17 [History] Past Medical History HEENT History: Reports: Cataract, Glaucoma, Hard of Hearing, Impaired Vision, Macular Degeneration Other HEENT History: Blind in left eye, deaf in right ear Respiratory History: Reports: Asthma, COPD, PE, Sleep Apnea Other Respiratory History: c-pap Gastrointestinal History: Reports: Bowel Obstruction, Cholelithiasis Other Gastrointestinal History: small bowel obstruction ALUMINUM SIDING APPLICATOR History: Reports: Dysfunctional Uterine Bleeding, Musculoskeletal History: Reports: Osteoarthritis, Osteoporosis, Other (See Below ) Other Musculoskeletal History: degenrative disc lower back Endocrine/Metabolic History: Reports: Diabetes, Type II, Obesity/BMI 30+ Other Endocrine/Metabolic History: Borderline Diabetic Hematologic History: Reports: B12 Deficiency, Blood Transfusion(s), Iron Deficiency Dermatologic History: Reports: Venous Stasis Dermatitis - Infectious Disease History Infectious Disease History: Reports: Chicken Pox, Measles - Past Surgical History HEENT Surgical History: Reports: None Respiratory Surgical History: Reports: None GI Surgical History: Reports: Bariatric Procedure, Cholecystectomy, Colonoscopy , EGD, Hernia, Abdominal, Hernia Repair/Other, Small Bowel Female Surgical History: Reports: Hysterectomy, Salpingo-Oophorectomy Endocrine Surgical History: Reports: None Musculoskeletal Surgical History: Reports: Hip Replacement, Knee Replacement, Shoulder Surgery Other Musculoskeletal Surgeries/Procedures:: all on the right side Social & Family History - Tobacco Use Smoking Status *Q: Never Smoker - Caffeine Use Caffeine Use: Reports: Coffee - Recreational Drug Use Recreational Drug Use: No ED ROS GENERAL - Review of Systems Review Of Systems: See Below Constitutional: Denies: Fever, Chills, Malaise, Weakness HEENT: Reports: No Symptoms Respiratory: Denies: Shortness of Breath, Wheezing, Cough, Sputum Cardiovascular: Reports: No Symptoms Endocrine: Reports: No Symptoms GI/Abdominal: Reports: Abdominal Pain, Other (She complains of pain to ventral incision) : Denies: Dysuria, Flank Pain, Frequency, Hematuria, Pain, Urgency, Urinary Retention Musculoskeletal: Reports: No Symptoms Skin: Denies: Bruising, Rash, Erythema, Wound Neurological: Reports: No Symptoms Psychiatric: Reports: No Symptoms Hematologic/Lymphatic: Reports: No Symptoms Immunologic: Reports: No Symptoms ED EXAM, GI/ABD - Physical Exam Exam: See Below Exam Limited By: No Limitations General Appearance: Alert, WD/WN, No Apparent Distress Eyes: Bilateral: Normal Appearance, EOMI Ears: Normal External Exam, Normal Canal, Hearing Grossly Normal, Normal TMs Nose: Normal Inspection, Normal Mucosa, No Blood Throat/Mouth: Normal Inspection, Normal Lips, Normal Teeth, Normal Gums, Normal Oropharynx, Normal Voice, No Airway Compromise Head: Atraumatic, Normocephalic Neck: Normal Inspection, Supple, Non-Tender, Full Range of Motion Respiratory/Chest: No Respiratory Distress, Lungs Clear, Normal Breath Sounds, No Accessory Muscle Use, Chest Non-Tender Cardiovascular: Normal Peripheral Pulses, Regular Rate, Rhythm, No Edema, No Murmur, No Rub GI/Abdominal Exam: Normal Bowel Sounds, Soft, No Organomegaly, Pelvis Stable, Tender, Hernia, Other (umbilical hernia, pain with palpation to incision line. ). No: Guarding, Rigid, Rebound Back Exam: Normal Inspection, Full Range of Motion. No: CVA Tenderness (R), CVA Tenderness (L) Extremities: Normal Inspection, Normal Range of Motion, Non-Tender, No Pedal Edema, Normal Capillary Refill Neurological: Alert, Oriented, CN II-XII Intact, Normal Cognition, Normal Gait, Normal Reflexes, No Motor/Sensory Deficits Psychiatric: Normal Affect, Normal Mood Skin Exam: Warm, Dry, Intact, Normal Color, No Rash Lymphatic: No Adenopathy Course - Vital Signs Last Recorded V/S: Last Vital Signs Temp 35.7 C 12/23/17 20:13 Pulse 71 12/23/17 20:13 Resp 18 12/23/17 20:13 BP 145/67 H 12/23/17 20:13 Pulse Ox 98 12/23/17 20:13 - Orders/Labs/Meds Orders: Active Orders 24 hr Category Date Time Status Abdomen Pelvis wo Cont [CT] Stat Exams 12/23/17 20:36 Taken Labs: Laboratory Tests 12/23/17 12/23/17 Range/Units 21:27 21:27 WBC 3.7 L (4.5-11.0) K/uL RBC 3.94 (3.30-5.50) M/uL Hgb 11.4 L (12.0-15.0) g/dL Hct 35.7 L (36.0-48.0) % MCV 91 (80-98) fL MCH 29 (27-31) pg MCHC 32 (32-36) % Plt Count 232 (150-400) K/uL Neut % (Auto) 61 (36-66) % Lymph % (Auto) 21 L (24-44) % [place] % (Auto) 12 H (2-6) % Eos % (Auto) 6 H (2-4) % Baso % (Auto) 1 (0-1) % Sodium 143 (140-148) mmol/L Potassium 3.2 L (3.6-5.2) mmol/L Chloride 110 H (100-108) mmol/L Carbon Dioxide 25 (21-32) mmol/L Anion Gap 11.2 (5.0-14.0) mmol/L BUN 15 D (7-18) mg/dL Creatinine 0.7 (0.6-1.0) mg/dL Est Cr Clr Drug Dosing 68.44 mL/min Estimated GFR (MDRD) > 60 (>60) Glucose 77 (74-106) mg/dL Calcium 8.0 L (8.5-10.1) mg/dL Total Bilirubin 0.5 (0.2-1.0) mg/dL AST 22 (15-37) U/L ALT 19 (12-78) U/L Alkaline Phosphatase 83 (46-116) U/L Total Protein 6.3 L (6.4-8.2) g/dL Albumin 3.2 L (3.4-5.0) g/dL Globulin 3.1 (2.3-3.5) g/dL Albumin/Globulin Ratio 1.0 L (1.2-2.2) Meds: Medications Discontinued Medications Generic Name Dose Route Start Last Admin Trade Name Freq PRN Reason Stop Dose Admin Sodium Chloride 10 ml 12/23/17 21:04 12/23/17 21:24 Saline Flush FLUSH 10 ml ASDIRECTED PRN Administration Keep Vein Open - Radiology Interpretation CT Results Date: 12/23/17 (CT of abdomen and pelvis without contrast shows postsurgical changes from gastric bypass. Interval resolution of small bowel obstruction from prior CT dated 06/04/17. New fluid collection in the anterior abdominal wall with mild degree of subcutaneous fat strandig in the anterior abdomen. Correlate with any recent surgery. Fluid collection in the anterior abdominal wall measures 5.6 cm in transverse dimension, sterile verusus infected fluid. Craniocaudal extent of fluid in the anterior abdominal wall estimated at 9.7 cm. ) - Re-Assessments/Exams Free Text/Narrative Re-Assessment/Exam: 12/23/17 21:[address] Metz, he advised hydrocodone for pain medication and follow up in the clinic with his [employer]PERATIONS MANAGER, Yasmin Osman on Tuesday at 10:00am. Patient in agreement with plan. Departure - Departure Time of Disposition: 22:01 Disposition: Home, Self-Care 01 Condition: Good Clinical Impression: Abdominal pain - Discharge Information Instructions: Abdominal Pain, Adult, [id number] Referrals: Machelle Contreras MD [Primary Care Provider] - Forms: ED Department Discharge, ED Return to Work/School Form Additional Instructions: You have been evaluated and treated for abdominal pain in the emergency room [facility]. Your CT scan of your abdomen showed some fluid around your surgical site. You do not have any sign of bowel obstruction or acute infection. Keep yourself hydrated. Take acetaminophen for pain as needed. Take hydrocodone 1 tablet three times a day as needed for pain. Use stool softner if needed to prevent constipation. Return immediately for any worsening. Report to the clinic on Tuesday at 10:00am to see Yasmin Osman [employer] OPER[employer] MANAGER for follow up. - My Orders Last 24 Hours: My Active Orders 12/23/17 20:36 Abdomen Pelvis wo Cont [CT] Stat - Assessment/Plan Last 24 Hours: My Active Orders 12/23/17 20:36 Abdomen Pelvis wo Cont [CT] Stat Assessment:: Abdominal pain Plan: Patient evaluated and treated for abdominal pain [facility] scan of abdomen showed some fluid around surgical site. No sign of bowel obstruction or acute infection. Keep hydrated. Take acetaminophen for pain as needed. Take hydrocodone 1 tablet three times a day as needed for pain. Use stool softner if needed to prevent constipation. Return immediately for any worsening. Report to the clinic on Tuesday at 10:00am to see Yasmin Osman [employer] OPER[employer] MANAGER for follow up.
[2017-12-23] MEDS ORDERED: Sodium Chloride 0.9% 10 ML Syringe FLUSH PRN (21:04)
[2017-12-23] MEDS ORDERED: Sodium Chloride 0.9% 80 ML IV SCH (21:15)
[2017-12-23] MEDS ORDERED: Iopamidol 612 MG/ML 150 ML Bottle IV SCH (21:15)
== END 2017-12-23 22:14 | disposition home or self-care (01) ==
LOC: JP.ED 18:42
DX: R10.9 Unspecified abdominal pain (principal); J44.9 Chronic obstructive pulmonary disease, unspecified; M19.90 Unspecified osteoarthritis, unspecified site; E11.9 Type 2 diabetes mellitus without complications; Z91.09 Other allergy status, other than to drugs and biological substances; Z88.1 Allergy status to other antibiotic agents; Z79.899 Other long term (current) drug therapy
CPT/HCPCS: 36415; 74176; 80053; 85025; 99284; J7050; 99283

== ENCOUNTER 2017-12-27 06:14 | Inpatient (IN) | payer MEDICARE, MEDICAID ==
[2017-12-27] MEDS ORDERED: Bupivacaine 0.5%/EPINEPHrine 1:200,000 50 ML MDV ONE (06:28)
[2017-12-27] MEDS ORDERED: Acetaminophen 500 MG Tab PO ONE (07:00)
[2017-12-27] MEDS ORDERED: Glycopyrrolate 0.2 MG/ML 5 ML MDV ONE (07:48)
[2017-12-27] MEDS ORDERED: Dexamethasone 4 MG/ML SDV ONE (07:48)
[2017-12-27] MEDS ORDERED: fentaNYL 250 MCG/5 ML SDV ONE (07:48)
[2017-12-27] MEDS ORDERED: Propofol 200 MG/20 ML SDV ONE (07:48)
[2017-12-27] MEDS ORDERED: Neostigmine Methylsulfate 1 MG/ML 5 ML Syringe ONE (07:48)
[2017-12-27] MEDS ORDERED: Ondansetron 4 MG/2 ML SDV ONE (07:48)
[2017-12-27] MEDS ORDERED: Succinylcholine 200 MG/10 ML MDV ONE (07:48)
[2017-12-27] MEDS ORDERED: Rocuronium 50 MG/5 ML Vial ONE (07:48)
[2017-12-27] MEDS: Dextrose 5%-Lactated Ringers 1,000 ML IV SCH ×3 (08:01→22:12)
[2017-12-27] MEDS ORDERED: Ketamine 500 MG/5 ML MDV IV SCH (08:15)
[2017-12-27] MEDS ORDERED: Ropivacaine 42 ML, Dexamethasone 8 MG, EPINEPHrine 0.4 MG, Sodium Chloride 0.9% 35.6 ML NERVRT SCH ×4 (08:15)
[2017-12-27] MEDS ORDERED: Acetaminophen/oxyCODONE 325-5 MG Tab PO PRN (10:04)
[2017-12-27] MEDS ORDERED: Cyclobenzaprine 10 MG Tab PO PRN (10:06)
[2017-12-27] MEDS ORDERED: diphenhydrAMINE 25 MG Cap PO PRN (10:06)
[2017-12-27] MEDS: Ciprofloxacin 500 MG Tab PO SCH ×2 (10:49→22:12)
[2017-12-27] MEDS: Cyanocobalamin (Vitamin B12) 1,000 MCG/ML SDV IM ONE ×2 (10:50→10:51)
[2017-12-27] MEDS: Celecoxib 200 MG Cap PO SCH (12:19)
[2017-12-27] MEDS: Enoxaparin 40 MG/0.4 ML Syringe SUBCUT SCH (17:25)
[2017-12-27] MEDS ORDERED: Latanoprost 0.005% Ophth Soln 2.5 ML Bottle EYEBOTH SCH (21:00)
[2017-12-28] MEDS: Enoxaparin 40 MG/0.4 ML Syringe SUBCUT SCH (05:45)
[2017-12-28] MEDS ORDERED: INCRUSE ELLIPTA INH SCH (07:00)
[2017-12-28 07:47] VITALS: BP 142/56
[2017-12-28] MEDS ORDERED: Multivitamins with Iron/Calcium/Folic Acid/Minerals Tab PO SCH (08:00)
[2017-12-28] MEDS: Celecoxib 200 MG Cap PO SCH (08:00)
--- NOTE | 2017-12-28 08:09 | DISCH ---
ADMISSION DIAGNOSES: 1. Seroma of intraabdominal fluid overlying mass upper abdomen 5.6 cm status post diagnostic laparoscopy converted to laparotomy with lysis of adhesion, repair of recurrent incarcerated incisional hernia with mesh and repair of incarcerated umbilical hernia with mesh and repair of deserosalization of duodenal stump and extensive intraabdominal adhesions 10/06/2017. 2. Andreia-en-Y gastric bypass surgery. 3. Postoperative surgical malabsorption. 4. Vitamin D deficiency. 5. Iron deficiency anemia. 6. B12 deficiency. DISCHARGE DIAGNOSES: Ultrasound-guided percutaneous drainage of seroma intraabdominal fluid overlying mass upper abdomen. HISTORY: Alea Contreras presented with a 5.6 fluid collection in the anterior abdominal wall under her incision. After preoperative evaluation and discussion of possible risks and possible complications, she wished to proceed with surgical procedure. HOSPITAL COURSE: Alea had her surgery on 12/27/2017. She had no complications. Pain was managed. Activity was good and she was ready to be discharged to home on postoperative day 1. PHYSICAL EXAMINATION: GENERAL: Alea Contreras is a 57-year-old female. VITAL SIGNS: Height is 5 feet 2 inches. Weight is 187 pounds. BMI is 34. TPR 97, 155, 16. Blood pressure is 123/58. HEENT: Negative. NECK: Supple. HEART: Regular rate and rhythm. LUNGS: Clear. ABDOMEN: Dressings dry and intact. KARISSA drain has put out 35 mL of light pink serosanguineous drainage. Abdominal binder is on. EXTREMITIES: Without peripheral edema. DISPOSITION: Discharged to home. CONDITION: Stable and improving. FOLLOWUP: Followup appointment with Froilan Metz MD at [facility] 01/04/2018 at 11:00 a.m. HOME PRESCRIPTIONS: Percocet 5/325 mg one to two tablets q.4 hours p.r.n. pain #30, bacitracin ointment placed small amount around KARISSA drain skin sites twice a day. To resume home medication; calcium carbonate 500 mg b.i.d., vitamin D3 of 5000 units oral daily, B12 of 1000 mcg mg injection every 14 days, eye patch Opticlude 1 patch topical daily, Nizoral 2% cream, ketoconazole 1 applicator twice daily, latanoprost (Xalatan) 0.005% ophthalmic solution one drop to both eyes at night, multivitamin 1 oral daily, triamcinolone cream 1 topical b.i.d., Ellipta 1 puff inhalation daily, vitamin B complex 1 capsule daily and Benadryl 25 oral every 6 hours. DIET: Usual diet as tolerated, drink 8 to 10 glasses a day. ACTIVITY: No lifting greater than 10 pounds for 6 weeks. Driving after discharge do not drive while on pain medication, may shower. DISCHARGE INSTRUCTIONS: Notify provider if any fever, increased pain, nausea, or vomiting. Wound incision care; keep site clean and dry. Wear abdominal binder for 6 weeks and then as tolerated. Special instruction, use incentive spirometer 10 times every hour while awake for 1 week.
[2017-12-28] MEDS ORDERED: [UNRECOGNIZED DRUG - SUPPLY] SCH (09:00)
[2017-12-28] MEDS ORDERED: Mupirocin Oint 22 GM Tube TOP SCH (09:00)
--- NOTE | 2017-12-28 11:36 | OR ---
DATE OF PROCEDURE: 12/27/2017 PREOPERATIVE DIAGNOSIS: Abdominal seroma overlying in recently placed intraperitoneal mesh. POSTOPERATIVE DIAGNOSES: Probable stable intraabdominal seroma overlying in recently placed intraperitoneal mesh. OPERATIVE PROCEDURE: Ultrasound-guided percutaneous drainage of intraabdominal fluid collection overlying in recently placed intraperitoneal mesh (62559). ANESTHESIA: General. INDICATION FOR PROCEDURE: A 57-year-old female presenting with increased amount of pain in the epigastrium. A CT scan was obtained, which showed fluid overlying the intraperitoneal mesh. The patient is to have this drained. If this appears to be a significant infection, we would convert this to laparotomy, remove the mesh. If it appears to be noninfected or a thin minimally-infected type of fluid, a drain will be placed, and postoperative antibiotics in the latter case would be administered. The plan will be to proceed with initial aspiration of fluid, send it for Gram stain and cultures, and then if it does not appear to be overtly infected or minimally infected or colonized, we would at that point place a drain, otherwise we open the incision and remove the mesh as noted above. DETAILS OF PROCEDURE: The patient was taken to the operating room and after general endotracheal anesthesia was induced, the abdomen was prepped and draped. Bilateral transversus abdominis plane blocks in subcostal location were then placed using continuous ultrasound and the standard solution bilaterally. fork lift technician then marked the location of the seroma and, initially, that area was aspirated with around 8 mL of a fairly clear serous fluid being removed. Gram stain of this was done x2, both of which showed no bacteria. Given this, a small incision to the right and inferior to the seroma was made in the abdominal wall. A needle was then placed from that location into the seroma, over that a guidewire was placed, and over the guidewire then a 16-Belgian introducer and peel-away catheter were positioned. A 15-Belgian round Jeremiah- Jimenes drain was then cut to an appropriate length and then placed through the peel-away catheter, which was then withdrawn leaving the Jeremiah-Jimenes drain in place. This was sutured into skin with some 3-0 Vicryl stitch. Good drainage was confirmed, and the procedure then concluded after a dressing had been applied. The patient was taken to the recovery room in a satisfactory condition. Froilan Metz MD /[id number]
== END 2017-12-28 10:15 | disposition home or self-care (01) | DRG 908 ==
LOC: JP.SDSSCHI 06:14 → JP.SDS 06:14 → EDSTATUS 08:15 → JP.2SS 09:57
PROVIDERS: ADMIT Surgery; ATTEND Surgery
PROC: 0W9J3ZX Drainage of Pelvic Cavity, Percutaneous Approach, Diagnostic (ICD-10-PCS; principal; 2017-12-27)
PROC: 3E0T3BZ Introduction of Anesthetic Agent into Peripheral Nerves and Plexi, Percutaneous Approach (ICD-10-PCS; 2017-12-27)
DX: K91.872 Postprocedural seroma of a digestive system organ or structure following a digestive system procedure (principal); K91.2 Postsurgical malabsorption, not elsewhere classified; Y83.8 Other surgical procedures as the cause of abnormal reaction of the patient, or of later complication, without mention of misadventure at the time of the procedure; Y92.009 Unspecified place in unspecified non-institutional (private) residence as the place of occurrence of the external cause; E55.9 Vitamin D deficiency, unspecified; D50.8 Other iron deficiency anemias; Z98.84 Bariatric surgery status; Z98.0 Intestinal bypass and anastomosis status; E53.8 Deficiency of other specified B group vitamins; J44.9 Chronic obstructive pulmonary disease, unspecified; Z86.711 Personal history of pulmonary embolism; R73.03 Prediabetes; Z96.641 Presence of right artificial hip joint; Z96.659 Presence of unspecified artificial knee joint
CPT/HCPCS: 76998; 87070; 87075; 87205; 94762; A9270-GY; J0171; J0330; J1100; J1650; J2405; J2704; J2710; J2795; J3010; J3420; J7042; J7050

== ENCOUNTER 2018-01-27 08:32 | Inpatient (IN) | payer MEDICARE, MEDICAID ==
[~2018-01-27 08:32] MED LIST: Dexamethasone 4 MG/ML SDV ONE; Glycopyrrolate 0.2 MG/ML 5 ML MDV ONE; Neostigmine Methylsulfate 1 MG/ML 5 ML Syringe ONE; Ondansetron 4 MG/2 ML SDV ONE; Propofol 200 MG/20 ML SDV ONE; Rocuronium 50 MG/5 ML Vial ONE; Succinylcholine 200 MG/10 ML MDV ONE; fentaNYL 250 MCG/5 ML SDV ONE
[2018-01-27] MEDS ORDERED: Celecoxib 200 MG Cap PO ONE (09:00)
[2018-01-27] MEDS ORDERED: Acetaminophen 500 MG Tab PO ONE (09:00)
[2018-01-27] MEDS ORDERED: Scopolamine 1.5 MG Transdermal Patch TOP ONE (09:00)
[2018-01-27] MEDS ORDERED: Albuterol/Ipratropium 3.0-0.5 MG/3 ML Neb Soln NEB ONE (09:15)
[2018-01-27] MEDS ORDERED: Dextrose 5%-Lactated Ringers 1,000 ML IV SCH (09:15)
[2018-01-27] MEDS ORDERED: Ketamine 500 MG/5 ML MDV IV SCH (10:00)
[2018-01-27] MEDS ORDERED: Ropivacaine 41 ML, Dexamethasone 8 MG, EPINEPHrine 0.4 MG, Sodium Chloride 0.9% 36.6 ML NERVRT SCH ×4 (10:00)
[2018-01-27] MEDS ORDERED: Lidocaine 1% PF 2 ML SDV INJECT ONE (10:15)
[2018-01-27] MEDS ORDERED: Meropenem 500 MG SDV ONE ×2 (12:02→14:18)
[2018-01-27] MEDS ORDERED: Naloxone 0.4 MG/ML SDV IV PRN (12:22)
[2018-01-27] MEDS ORDERED: HYDROmorphone/Normal Saline 15 MG/30 ML PCA IV PRN (12:22)
[2018-01-27] MEDS: Meropenem 500 MG in Sodium Chloride 0.9% 50 ML IV ONE ×2 (12:59→17:38)
[2018-01-27] MEDS ORDERED: Linezolid 200 MG/100 ML Bag IRR ONE (14:39)
[2018-01-27] MEDS ORDERED: Lactated Ringers 1,000 ML ONE (15:10)
[2018-01-27] MEDS: Mupirocin Oint 22 GM Tube TOP SCH ×2 (15:34→20:58)
[2018-01-27] MEDS: Ketoconazole 2% Crm 30 GM Tube TOP SCH ×2 (15:35→20:58)
[2018-01-27] MEDS ORDERED: fentaNYL 100 MCG/2 ML SDV ONE ×2 (15:39→16:08)
[2018-01-27] MEDS: CHECK SCOPOLAMINE PATCH DAILY TOP SCH (17:37)
[2018-01-27] MEDS: Acetaminophen 500 MG Tab PO SCH (17:44)
[2018-01-27] MEDS: Meropenem 500 MG in Sodium Chloride 0.9% 50 ML IV SCH (17:44)
[2018-01-27] MEDS ORDERED: Ondansetron 4 MG/2 ML SDV IVPUSH PRN (18:00)
[2018-01-27] MEDS ORDERED: hydrOXYzine HCl 100 MG/2 ML SDV IM PRN (18:00)
[2018-01-27] MEDS ORDERED: Albuterol/Ipratropium 3.0-0.5 MG/3 ML Neb Soln INH PRN (18:00)
[2018-01-27] MEDS: Dextrose 5%-Lactated Ringers 1,000 ML IV SCH (18:31)
[2018-01-27] MEDS ORDERED: Lactated Ringers 500 ML IV SCH (21:00)
[2018-01-27] MEDS: Latanoprost 0.005% Ophth Soln 2.5 ML Bottle EYEBOTH SCH (21:04)
[2018-01-28] MEDS: Meropenem 500 MG in Sodium Chloride 0.9% 50 ML IV SCH ×4 (00:01→17:12)
[2018-01-28] MEDS: Dextrose 5%-Lactated Ringers 1,000 ML IV SCH ×2 (00:01→05:33)
[2018-01-28] MEDS: Acetaminophen 500 MG Tab PO SCH ×4 (00:10→17:14)
[2018-01-28] MEDS ORDERED: INCRUSE ELLIPTA 62.5MCG INH SCH (07:00)
[2018-01-28] MEDS ORDERED: Tiotropium Inhaler 18 MCG Inhalation Powder Cap Kit of 5 INH SCH (07:30)
[2018-01-28] MEDS: Pantoprazole 40 MG Tab.CR PO SCH (07:34)
[2018-01-28] MEDS: Celecoxib 200 MG Cap PO SCH (07:49)
[2018-01-28] MEDS: INCRUSE ELLIPTA 62.5MCG INH SCH (08:00)
[2018-01-28] MEDS ORDERED: Dextrose 5%-Lactated Ringers 1,000 ML IV SCH ×3 (08:30→18:00)
[2018-01-28] MEDS: Mupirocin Oint 22 GM Tube TOP SCH ×2 (09:58→20:38)
[2018-01-28] MEDS: CHECK SCOPOLAMINE PATCH DAILY TOP SCH (09:59)
[2018-01-28] MEDS: Bisacodyl 5 MG Tab PO SCH ×2 (09:59→20:39)
[2018-01-28] MEDS: Ketoconazole 2% Crm 30 GM Tube TOP SCH ×2 (10:00→20:38)
--- NOTE | 2018-01-28 10:00 | PN ---
DATE OF SERVICE: 01/28/2018 The patient has been afebrile with stable vital signs. No major problems were noted other than a marginally low urine output. She did require one bolus. We will leave the Armstrong catheter in for today. We are monitoring the urine output, but otherwise, we will start on step-4 diet and begin some ongoing bowel stimulation and maximize activity and work on her pulmonary toilet. Froilan Metz MD /[id number]
[2018-01-28] MEDS: Latanoprost 0.005% Ophth Soln 2.5 ML Bottle EYEBOTH SCH (20:39)
[2018-01-29] MEDS: Acetaminophen 500 MG Tab PO SCH ×5 (00:13→23:47)
[2018-01-29] MEDS: Meropenem 500 MG in Sodium Chloride 0.9% 50 ML IV SCH ×3 (00:14→12:12)
[2018-01-29] MEDS ORDERED: Sodium Chloride 0.9% 10 ML Syringe IV PRN (07:22)
[2018-01-29] MEDS: INCRUSE ELLIPTA 62.5MCG INH SCH (07:37)
[2018-01-29] MEDS: Pantoprazole 40 MG Tab.CR PO SCH (07:44)
[2018-01-29] MEDS: Celecoxib 200 MG Cap PO SCH (07:44)
[2018-01-29] MEDS: HYDROmorphone 2 MG Tab PO PRN ×3 (07:51→17:14)
[2018-01-29] MEDS: Mupirocin Oint 22 GM Tube TOP SCH ×2 (08:48→20:35)
[2018-01-29] MEDS: CHECK SCOPOLAMINE PATCH DAILY TOP SCH (08:49)
[2018-01-29] MEDS: Ketoconazole 2% Crm 30 GM Tube TOP SCH ×2 (08:49→20:35)
--- NOTE | 2018-01-29 12:49 | PN ---
DATE OF SERVICE: 01/29/2018 The patient has been afebrile with stable vital signs. Oral intake has been good. We will saline lock her IV. Discontinue the Armstrong catheter, switch over to oral pain medication. She is moving her bowels. We will discontinue the scheduled Dulcolax tablets and have her get in the shower. She will likely be ready for discharge home tomorrow. Froilan Metz MD /[id number]
[2018-01-29] MEDS: Latanoprost 0.005% Ophth Soln 2.5 ML Bottle EYEBOTH SCH (20:36)
[2018-01-30] MEDS: Acetaminophen 500 MG Tab PO SCH (05:37)
[2018-01-30] MEDS: INCRUSE ELLIPTA 62.5MCG INH SCH (07:17)
[2018-01-30 07:25] VITALS: BP 138/62
[2018-01-30] MEDS: Celecoxib 200 MG Cap PO SCH (07:32)
[2018-01-30] MEDS: Pantoprazole 40 MG Tab.CR PO SCH (07:32)
[2018-01-30] MEDS: Mupirocin Oint 22 GM Tube TOP SCH (09:10)
[2018-01-30] MEDS: Ketoconazole 2% Crm 30 GM Tube TOP SCH (09:10)
--- NOTE | 2018-01-30 10:28 | DISCH ---
ADMISSION DIAGNOSES: Recurrent incisional hernias, panniculitis, history of Andreia-en-Y gastric bypass surgery, unspecified surgical malabsorption, vitamin D deficiency, vitamin B12 deficiency, iron deficiency anemia, intermittent asthma, without complications, chronic obstructive pulmonary disease, essential hypertension, and osteoporosis. DISCHARGE DIAGNOSES: Exploratory lap with lysis of adhesions, partial cecectomy and colpectomy with adherent intraperitoneal mesh excision of nodule on appendix epiploica and repair of recurrent incarcerated incisional hernia with mesh and panniculectomy for recurrent incarcerated incisional hernia. The cecum and appendix adherent to proctostomy proximally placed intraperitoneal mesh, chronic panniculitis intraperitoneal nodule on appendix epiploica, transverse colon. Date of surgery 01/27/2018. HISTORY: Alea Contreras is a 57-year-old female with recurrent incarcerated incisional hernias and chronic panniculitis. After preoperative evaluation and discussion of possible risks and possible complications, she wished to proceed with surgical procedure. HOSPITAL COURSE: Alea had no operative complications. On postop day #1, her vital signs were stable. She did receive 1 L of Lactated Ringer's IV bolus for marginal output, so her Armstrong catheter was left in for one more day. She was started on a diet step 4 gastric bypass. On 01/29, her Armstrong was removed. She was switched to oral pain management and she started having bowel movements. On 01/30/2018, her pain was controlled. Her activity was good and she was able to be discharged to home. PHYSICAL EXAMINATION: GENERAL: Alea Contreras is a 57-year-old female. Height is 5 feet 2.6 inches. Weight is 185 pounds. VITAL SIGNS: TPR is 98.4, 70, 16, and blood pressure 138/62. HEENT: Negative. NECK: Supple. HEART: Regular rate and rhythm. LUNGS: Clear. ABDOMEN: Incisions look good and raquel intact, 4 KARISSA drains intact, draining a light pink serosanguineous drainage. EXTREMITIES: Without peripheral edema. DISPOSITION: Discharged to home. CONDITION: Stable and improving. FOLLOWUP VISIT: On 02/09/2018 at 10 a.m. HOME MEDICATIONS: 1. Tylenol Extra Strength 1000 mg oral q.6 hours p.r.n. pain #100. 2. Celebrex 200 mg oral daily #14. 3. Dilaudid 2 mg, 1 to 2 every 4 hours p.r.n. pain #30. 4. Ketoconazole 2% topical twice a day around drain tubes. DIET: Usual diet as tolerated. Drink 8 to 10 glasses of water a day. ACTIVITY: No lifting greater than 10 pounds for 6 weeks. Other activity, walk 6 times daily inside your home. Driving: Do not drive on narcotic pain medication. May shower. DISCHARGE INSTRUCTIONS: Notify provider if any fever, increased pain, nausea, or vomiting. Keep site clean and dry. Strip, empty, measure and record KARISSA drains 4 times a day. Bring record of KARISSA drainage to clinic appointments. Wear abdominal binder for 6 weeks and then as tolerated. Use incentive spirometer 10 times every hour while awake for 1 week.
--- NOTE | 2018-02-06 12:44 | OR ---
DATE OF PROCEDURE: 01/27/2018 PREOPERATIVE DIAGNOSES: 1. Recurrent incarcerated incisional hernia. 2. Chronic panniculitis. POSTOPERATIVE DIAGNOSES: 1. Recurrent incarcerated incisional hernia. 2. Chronic panniculitis. 3. Cecum and appendix adherent to previously placed intraperitoneal mesh. 4. Intraperitoneal nodule on appendix epiploica involving transverse colon. OPERATIVE PROCEDURES: Exploratory laparotomy with lysis of adhesions and, 1. Partial cecectomy and appendectomy with excision of a portion of adherent intraperitoneal mesh (42929, [id number]). 2. Excision of nodule involving appendix epiploica (73069). 3. Repair of recurrent incarcerated incisional hernia with mesh (75839, 09088). 4. Panniculectomy (87852). ANESTHESIA: General. TALENT MANAGEMENT MANAGER: Yasmin Osman PA-C. INDICATIONS FOR PROCEDURE: The patient presents with a large recurrent incisional hernia that is located in the suprapubic area, below an area of previously placed mesh for repair of a previous hernia. This was associated with a large amount of panniculitis chronically as well. The plan is to proceed with the repair of recurrent incarcerated incisional hernia with mesh along with panniculectomy as well as other procedures as indicated by intraoperative findings. Potential risks including bleeding, infection, injury to underlying viscera, problems with hernia recurring or the mesh becoming infected, as well as possibility of cardiopulmonary, septic, or hemorrhagic complications leading to were discussed, and the patient wishes to proceed. DETAILS OF PROCEDURE: The patient was taken to the operating room and placed in a supine position. After general endotracheal anesthesia was induced, a Armstrong catheter was inserted and the abdomen prepped and draped. A midline incision was then made and carried down through the skin and subcutaneous tissue. This was over the lower abdomen, was carried down on to the area of the hernia sac, which was then dissected away from underlying soft tissues. The hernia was then opened and the sac excised. It was noted on the superior aspect of the area of dissection, the appendix and adjacent base of cecum were adherent to the previously placed mesh which was otherwise intact. This was felt to be needing a resection after walling off the surrounding areas. The cecum was freed up from the surrounding vasculature and divided with a SHARLA stapler. The mesoappendix was also then divided and the adherent portion of mesh to the cecum and appendix were then also divided away from the adjacent otherwise intact mesh and delivered from the field. At that point gowns, gloves and instruments that had been used for the cecectomy were then removed and the area initially irrigated with meropenem-containing saline solution. At this point, some additional points of incarceration being in omentum and small bowel and the hernia sac were then divided away, and the hernia sac excised. During the course of dissection, the patient was noted to have a nodular lesion, roughly 8 mm in size, attached to the appendix epiploica. This was excised and sent as a separate specimen. The general side of the fascia around the hernia was then cleared in all directions such as we could provide sufficient coverage of the mesh. Fortunately there was a large amount of intact fascia above the pubic bone, which would leave this to be a reasonably satisfactory repair. At that point, Ventrio ST hernia mesh was selected, a 22 x 27 segment of oval mesh was then placed, transversely oriented positioning of the long axis of the mesh was then placed with sutures being placed on the polypropylene side of the mesh with roughly 5 cm intervals around the circumference with 2-0 silk being placed. These sutures were then pulled up thus fixing the mesh in general position with suture passer using it to pull the sutures up. Once these were in place, then the mesh was fixed to the underside of the fascia and with the shelf protecting it from free intraperitoneal location being in place and the tag was then placed circumferentially. The mesh was then soaked with antibiotic- containing saline solution and once again had also been irrigated at this point with additional antibiotic solution. A primary fascial closure with a midline orientation was then accomplished with a #2 Vicryl stitch. The panniculectomy was then accomplished with division of a wide transversely oriented elliptical incision of the skin and subcutaneous tissue, taking down to the fascia, going from above the anterior superior iliac spines on each side and across both lower abdomen and the specimen was then delivered from the field. Four Jeremiah-Jimenes drains were then placed through stab wounds, superior to the incision, and the incision then closed with 3-0 and 4-0 Vicryl stitch deep and raquel for the skin. Drains were fixed with some 4-0 Vicryl stitch and the skin with raquel. Dressing was applied. The patient was taken to the recovery room in satisfactory condition. There were no overt complications. Physician patient services assistant, Yasmin Osman, played an essential role in assisting in this case, helping to position the patient, retract structures as needed as well as suturing and cutting sutures when indicated. Her presence improved the patient's safety and decreased operative time. Froilan Metz MD /[id number]
== END 2018-01-30 10:05 | disposition home or self-care (01) | DRG 983 ==
LOC: JP.2SS 08:32 → UNDOADMIN 08:32 → JP.SDSSCHI 08:32 → JP.SDS 08:32 → EDSTATUS 10:45 → JP.2SS 16:30
PROVIDERS: ADMIT Surgery; ATTEND Surgery
PROC: 0HB7XZZ Excision of Abdomen Skin, External Approach (ICD-10-PCS; principal; 2018-01-27)
PROC: 0DBH0ZZ Excision of Cecum, Open Approach (ICD-10-PCS; 2018-01-27)
PROC: 0DTJ0ZZ Resection of Appendix, Open Approach (ICD-10-PCS; 2018-01-27)
PROC: 0DB Gastrointestinal System, Excision (ICD-10-PCS; 2018-01-27)
PROC: 0WUF0JZ Supplement Abdominal Wall with Synthetic Substitute, Open Approach (ICD-10-PCS; 2018-01-27)
PROC: 0WPF0JZ Removal of Synthetic Substitute from Abdominal Wall, Open Approach (ICD-10-PCS; 2018-01-27)
DX: M79.3 Panniculitis, unspecified (principal); K43.2 Incisional hernia without obstruction or gangrene; E55.9 Vitamin D deficiency, unspecified; E53.8 Deficiency of other specified B group vitamins; D50.9 Iron deficiency anemia, unspecified; J44.9 Chronic obstructive pulmonary disease, unspecified; I10 Essential (primary) hypertension; M81.0 Age-related osteoporosis without current pathological fracture; K66.0 Peritoneal adhesions (postprocedural) (postinfection); K38.8 Other specified diseases of appendix
CPT/HCPCS: 88302; 88304; 88305; 94640-76; 94762; A9270-GY; C1781; J0171; J0330; J1100; J1170; J2020; J2185; J2405; J2704; J2710; J2795; J3010; J3490; J7030; J7042; J7050; J7120; J7620

== ENCOUNTER 2018-03-03 19:52 | Emergency (ER) | payer MEDICARE, MEDICAID ==
[2018-03-03 20:12] VITALS: BP 149/56
--- NOTE | 2018-03-03 20:20 | EDM.PDOC ---
ED HPI GENERAL MEDICAL PROBLEM - General Chief Complaint: Bite:Animal, Insect Stated Complaint: DOG BITE Time Seen by Provider: 03/03/18 20:19 Source of Information: Reports: Patient - History of Present Illness INITIAL COMMENTS - FREE TEXT/NARRATIVE: Alea presents tonight with complaints of dog bite to the right forearm that occurred at 1700 tonight. Tetanus up today. Right Lower Arm Pain Score (Numeric/FACES): 5 - Related Data Allergies Allergy/AdvReac Type Severity Reaction Status Date / Time dog dander Allergy Intermediate Difficulty Verified 03/03/18 20:09 Breathing adhesive tape Allergy Rash Verified 03/03/18 20:09 cephalexin [From Keflex] Allergy Rash Verified 03/03/18 20:09 Home Meds: Home Meds Calcium Carbonate [Oyster Shell Calcium] 500 mg PO BID 02/06/17 [History] Cholecalciferol (Vitamin D3) [Vitamin D3] 5,000 units PO DAILY 02/06/17 [History ] Cyanocobalamin (Vitamin B-12) [Cyanocobalamin Injection] 1,000 mcg IJ Q14D 02/06 [History] Vitamin B Complex [B Complex] 1 cap PO DAILY 02/06/17 [History] Bacitracin [Bacitracin Oint] 1 cm TOP BID PRN 07/04/17 [History] Multivit-Min/Iron/Folic Acid/K [Centravites Adults Tablet] 1 each PO DAILY 07/04 [History] Triamcinolone Acetonide [Triamcinolone Acetonide 0.1% Oint] 1 cm TOP BID PRN [History] Umeclidinium [place] [Incruse Ellipta*] 1 puff IH DAILY 07/04/17 [History] Eye Patch [Opticlude] 1 patch TOP DAILY 10/04/17 [History] diphenhydrAMINE [Benadryl] 25 mg PO Q6H PRN 10/04/17 [History] Latanoprost [Xalatan 0.005% Ophth Soln] 1 drop EYEBOTH QPM 12/26/17 [History] Acetaminophen [Tylenol Extra Strength] 1,000 mg PO Q6H PRN #100 tablet 01/30/18 [Rx] Ketoconazole [Nizoral 2% Crm] 0 gm TOP BID tube 07/16/18 [Rx] Past Medical History HEENT History: Reports: Cataract, Glaucoma, Hard of Hearing, Impaired Vision, Macular Degeneration Other HEENT History: Blind in left eye, deaf in right ear Respiratory History: Reports: Asthma, COPD, PE, Sleep Apnea Other Respiratory History: does not use cpap Gastrointestinal History: Reports: Bowel Obstruction, Cholelithiasis Other Gastrointestinal History: small bowel obstruction [employer]ENIOUR INSIGHT MANAGER History: Reports: Dysfunctional Uterine Bleeding, Musculoskeletal History: Reports: Osteoarthritis, Osteoporosis, Other (See Below ) Other Musculoskeletal History: degenrative disc lower back Endocrine/Metabolic History: Reports: Diabetes, Type II, Obesity/BMI 30+ Other Endocrine/Metabolic History: Borderline Diabetic Hematologic History: Reports: B12 Deficiency, Blood Transfusion(s), Iron Deficiency Dermatologic History: Reports: Venous Stasis Dermatitis - Infectious Disease History Infectious Disease History: Reports: Chicken Pox, Measles, Mumps - Past Surgical History HEENT Surgical History: Reports: None Respiratory Surgical History: Reports: None GI Surgical History: Reports: Bariatric Procedure, Cholecystectomy, Colonoscopy , EGD, Hernia, Abdominal, Hernia Repair/Other, Small Bowel Female Surgical History: Reports: Hysterectomy, Salpingo-Oophorectomy Endocrine Surgical History: Reports: None Musculoskeletal Surgical History: Reports: Hip Replacement, Knee Replacement, Shoulder Surgery Other Musculoskeletal Surgeries/Procedures:: all on the right side Social & Family History - Family History Family Medical History: Noncontributory - Tobacco Use Smoking Status *Q: Never Smoker Second Hand Smoke Exposure: No - Caffeine Use Caffeine Use: Reports: Coffee Other Caffeine Use: 2 cups per day - Recreational Drug Use Recreational Drug Use: No ED ROS GENERAL - Review of Systems Review Of Systems: See Below Constitutional: Denies: Fever, Chills, Malaise, Weakness HEENT: Reports: No Symptoms Respiratory: Reports: No Symptoms Cardiovascular: Reports: No Symptoms Musculoskeletal: Reports: Arm Pain, Other (Pain to forearm to site of dog bite. ) Skin: Reports: Other (Small puncture wound to right forearm) Neurological: Reports: No Symptoms Psychiatric: Reports: No Symptoms Hematologic/Lymphatic: Reports: No Symptoms Immunologic: Reports: No Symptoms ED EXAM, ANIMAL BITE - Physical Exam Exam: See Below Text/Narrative:: Alea presents tonight with complaints of dog bite to the right forearm. She states she was putting her dog (Datsun) under some blankets and it bit her. She reports the dog is her own pet, its immunizations are up to date. Exam Limited By: No Limitations General Appearance: Alert, WD/WN, No Apparent Distress Eye Exam: Bilateral Eye: Normal Inspection, PERRL Head: Atraumatic, Normocephalic Neck: Normal Inspection, Supple, Non-Tender, Full Range of Motion Respiratory/Chest: No Respiratory Distress, Lungs Clear, Normal Breath Sounds, No Accessory Muscle Use, Chest Non-Tender Cardiovascular: Normal Peripheral Pulses, No Murmur, No Rub Peripheral Pulses: 2+: Radial (L), Radial (R) Extremities: Normal Range of Motion, No Pedal Edema, Normal Capillary Refill, Other (Tenderness to puncture wound and small abrasion of right forearm, bleeding controlled, no signs of erythema or infection. ) Neurological: Alert, Oriented, Normal Cognition, Normal Gait, Normal Reflexes, No Motor/Sensory Deficits Psychiatric: Normal Affect, Normal Mood Skin Exam: Normal Color, Warm/Dry, Other (puncture wound and abrasion as above. ) Lymphadenopathy: Bilateral: No Adenopathy Lymphatic: No Adenopathy Course - Vital Signs Last Recorded V/S: Last Vital Signs Temp 36.0 C 03/03/18 20:17 Pulse 65 03/03/18 20:17 Resp 16 03/03/18 20:17 BP 149/56 H 03/03/18 20:17 Pulse Ox 99 03/03/18 20:17 Departure - Departure Time of Disposition: 20:32 Disposition: Home, Self-Care 01 Condition: Good Clinical Impression: Dog bite of arm, Puncture wound - Discharge Information *PRESCRIPTION DRUG MONITORING PROGRAM REVIEWED*: No *COPY OF PRESCRIPTION DRUG MONITORING REPORT IN PATIENT MOO: No Instructions: Animal Bite, [id number] Referrals: Machelle Contreras MD [Primary Care Provider] - Forms: ED Department Discharge Additional Instructions: You have been evaluated and treated for a dog bite to the right forearm. Small puncture wound noted. Keep area clean and dry, may apply bacitracin ointment to the wound twice per day. Wash area with soap and water. Watch for signs of infection. If you develop redness, warmth and worsening pain start use antibiotic. Follow up with your primary provider for a recheck in 3 to 7 days. Return for worsening, issues or concerns. Hard copy script provided for Ciprofloxacin 400mg PO twice per day for three days and follow up with primary provider before antibiotics run out. - Assessment/Plan Assessment:: Dog bite Puncture wound Abrasion Plan: Patient evaluated and treated for a dog bite to the right forearm. Small puncture wound noted. Keep area clean and dry, may apply bacitracin ointment to the wound twice per day. Wash area with soap and water. Watch for signs of infection. If redness, warmth and worsening pain develop, start use antibiotic. Follow up with your primary provider for a recheck in 3 to 7 days. Return for worsening, issues or concerns. Hard copy script provided for Ciprofloxacin 400mg PO twice per day for three days and follow up with primary provider before antibiotics run out. (allergy to cephalexin).
== END 2018-03-03 20:49 | disposition home or self-care (01) ==
LOC: JP.ED 19:52
DX: S51.831A Puncture wound without foreign body of right forearm, initial encounter (principal); J45.909 Unspecified asthma, uncomplicated; E11.9 Type 2 diabetes mellitus without complications; Z88.1 Allergy status to other antibiotic agents; Z79.899 Other long term (current) drug therapy; W54.0XXA Bitten by dog, initial encounter
CPT/HCPCS: 99283

== ENCOUNTER 2018-03-09 06:42 | Day surgery (SDC) | payer MEDICARE, MEDICAID ==
[2018-03-09] MEDS ORDERED: Sodium Chloride 0.9% 10 ML ONE (07:06)
[2018-03-09] MEDS ORDERED: Sodium Tetradecyl Sulfate 1% 20 MG/2 ML SDV ONE (07:06)
[2018-03-09] MEDS ORDERED: Lidocaine 1% with EPINEPHrine 1:100,000 50 ML MDV ONE (07:06)
[2018-03-09] MEDS ORDERED: Sodium Chloride 0.9% 1,000 ML IV SCH (07:30)
[2018-03-09] MEDS ORDERED: fentaNYL 100 MCG/2 ML SDV ONE (07:34)
[2018-03-09] MEDS ORDERED: Propofol 200 MG/20 ML SDV ONE ×2 (07:34→08:28)
[2018-03-09] MEDS ORDERED: Midazolam 1 MG/ML 2 ML SDV ONE (07:34)
[2018-03-09] MEDS ORDERED: Lidocaine 1% w/EPINEPHrine 50 ML, Sodium Bicarbonate 5 MEQ in Sodium Chloride 0.9% 950 ML INJECT SCH (07:45)
[2018-03-09 10:19] VITALS: BP 113/64
--- NOTE | 2018-03-10 08:17 | OR ---
DATE OF PROCEDURE: 03/09/2018 PROCEDURES PERFORMED: 1. Radiofrequency ablation of left greater saphenous vein. 2. Sclerotherapy, left leg, multiple. 3. Sclerotherapy, right leg, multiple. 4. Compression wrap, left leg ([id number]). FINDINGS: Severe tortuosity noted in the right greater saphenous vein. COMPLICATIONS: None. DIRECTOR NEW PRODUCT: None. ANESTHESIA: MAC. PREOPERATIVE DIAGNOSES: Venous insufficiency. POSTOPERATIVE DIAGNOSIS: Venous insufficiency. DESCRIPTION OF PROCEDURE: The patient was placed in supine position. The left GSV was able to be accessed at the level of the ankle. This was accessed using a 35,000 gauge wire through a 21-gauge needle. This was advanced through a 7-Divehi sheath. This was able to be advanced to about the mid thigh and due to tortuosity this was unable to be advanced any further. Tumescent fluid was injected around this. This was verified second and third time. Direct even pressure was held as the probe was deployed x2 proximally and distally and x1 in all other segments. Sheath and device were removed and direct pressure was held for 10 minutes. Dermabond was applied. Attention was turned to the right leg. Multiple attempts were made to access the anterior accessory vein. Unfortunately, due to tortuosity, it was not able to be accessed. Sclerotherapy was then performed on left and right legs using 0.33% sodium tetradecyl drawn back to ensure intravascular injection only and no more than 2 mL was injected in one location, 6 on the right, 5 on the left. Two-stage two-layer compression wrapping was then performed in a [id number] gradient using 20 mmHg as a target. The patient tolerated the procedure well. Jose Wray MD /[id number]
== END 2018-03-09 10:15 | disposition home or self-care (01) ==
LOC: JP.SDS 06:42
PROVIDERS: ATTEND Surgery
DX: I87.2 Venous insufficiency (chronic) (peripheral) (principal); J44.9 Chronic obstructive pulmonary disease, unspecified; M17.10 Unilateral primary osteoarthritis, unspecified knee; M81.0 Age-related osteoporosis without current pathological fracture; I10 Essential (primary) hypertension; E53.8 Deficiency of other specified B group vitamins; E66.01 Morbid (severe) obesity due to excess calories; Z68.41 Body mass index [BMI] 40.0-44.9, adult; Z79.899 Other long term (current) drug therapy; Z88.1 Allergy status to other antibiotic agents; Z91.048 Other nonmedicinal substance allergy status
CPT/HCPCS: 36471; 36475; C1888; J1642; J2250; J2704; J3010; J7030; J7050; J3490

== ENCOUNTER 2018-10-09 07:14 | Inpatient (IN) | payer MEDICARE, MEDICAID ==
[~2018-10-09 07:14] MED LIST changes: -Dexamethasone 4 MG/ML SDV ONE; -Glycopyrrolate 0.2 MG/ML 5 ML MDV ONE; +Meropenem 500 MG SDV ONE; -Neostigmine Methylsulfate 1 MG/ML 5 ML Syringe ONE; -Ondansetron 4 MG/2 ML SDV ONE; -Propofol 200 MG/20 ML SDV ONE; -Rocuronium 50 MG/5 ML Vial ONE; -Succinylcholine 200 MG/10 ML MDV ONE; -fentaNYL 250 MCG/5 ML SDV ONE
[2018-10-09] MEDS ORDERED: Acetaminophen 500 MG Tab PO ONE (07:16)
[2018-10-09] MEDS ORDERED: Albuterol/Ipratropium 3.0-0.5 MG/3 ML Neb Soln NEB ONE (07:17)
[2018-10-09] MEDS ORDERED: Dextrose 5%-Lactated Ringers 1,000 ML IV SCH (07:17)
[2018-10-09] MEDS ORDERED: HYDROmorphone/Normal Saline 15 MG/30 ML PCA IV PRN (07:36)
[2018-10-09] MEDS ORDERED: Succinylcholine 200 MG/10 ML MDV ONE (07:37)
[2018-10-09] MEDS ORDERED: Ondansetron 4 MG/2 ML SDV ONE (07:37)
[2018-10-09] MEDS ORDERED: Neostigmine Methylsulfate 1 MG/ML 5 ML Syringe ONE (07:37)
[2018-10-09] MEDS ORDERED: Propofol 200 MG/20 ML SDV ONE (07:37)
[2018-10-09] MEDS ORDERED: fentaNYL 250 MCG/5 ML SDV ONE (07:37)
[2018-10-09] MEDS ORDERED: Rocuronium 50 MG/5 ML Vial ONE (07:37)
[2018-10-09] MEDS ORDERED: Glycopyrrolate 0.2 MG/ML 5 ML MDV ONE (07:37)
[2018-10-09] MEDS ORDERED: Dexamethasone 4 MG/ML SDV ONE (07:37)
[2018-10-09] MEDS ORDERED: Naloxone 0.4 MG/ML SDV IV PRN (07:38)
[2018-10-09] MEDS ORDERED: Meropenem 500 MG in Sodium Chloride 0.9% 50 ML IV ONE (08:30)
[2018-10-09] MEDS ORDERED: Ropivacaine 38 ML, Dexamethasone 8 MG, EPINEPHrine 0.4 MG, Sodium Chloride 0.9% 39.6 ML NERVRT SCH ×4 (09:00)
[2018-10-09] MEDS ORDERED: Ketamine 500 MG/5 ML MDV IV SCH (09:00)
[2018-10-09] MEDS ORDERED: Bupivacaine 0.5%/EPINEPHrine 1:200,000 50 ML MDV ONE (09:54)
[2018-10-09] MEDS ORDERED: Ketorolac 60 MG/2 ML SDV ONE (10:48)
[2018-10-09] MEDS ORDERED: HYDROmorphone 1 MG/ML Syringe IV PRN (12:00)
[2018-10-09] MEDS ORDERED: HYDROmorphone 0.5 MG/0.5 ML Syringe IVPUSH PRN (12:00)
[2018-10-09] MEDS ORDERED: Ondansetron 4 MG/2 ML SDV IVPUSH PRN (12:04)
[2018-10-09] MEDS ORDERED: hydrOXYzine HCl 100 MG/2 ML SDV IM PRN (12:05)
[2018-10-09] MEDS ORDERED: Albuterol/Ipratropium 3.0-0.5 MG/3 ML Neb Soln INH PRN (12:05)
[2018-10-09] MEDS: Dextrose 5%-Lactated Ringers 1,000 ML IV SCH ×2 (12:13→19:06)
[2018-10-09] MEDS: Albuterol/Ipratropium 3.0-0.5 MG/3 ML Neb Soln INH SCH ×2 (14:27→20:31)
[2018-10-09] MEDS: Meropenem 500 MG in Sodium Chloride 0.9% 50 ML IV SCH ×2 (15:21→20:28)
[2018-10-09] MEDS: Acetaminophen 500 MG Tab PO SCH ×2 (15:21→21:55)
[2018-10-09] MEDS ORDERED: [UNRECOGNIZED DRUG - OTHER] TOP SCH (17:15)
[2018-10-09] MEDS: Morphine 2 MG/ML Syringe IVPUSH PRN (17:52)
[2018-10-10] MEDS: Dextrose 5%-Lactated Ringers 1,000 ML IV SCH ×3 (02:16→20:40)
[2018-10-10] MEDS: Meropenem 500 MG in Sodium Chloride 0.9% 50 ML IV SCH (02:17)
[2018-10-10] MEDS: Acetaminophen 500 MG Tab PO SCH ×4 (03:16→22:21)
[2018-10-10] MEDS: Morphine 2 MG/ML Syringe IVPUSH PRN (05:15)
[2018-10-10] MEDS: Albuterol/Ipratropium 3.0-0.5 MG/3 ML Neb Soln INH SCH ×4 (07:12→22:21)
[2018-10-10] MEDS ORDERED: Ondansetron 4 MG Tab.DIS PO PRN (07:19)
--- NOTE | 2018-10-10 07:33 | PCM.PN ---
- General Info Date of Service: 10/10/18 Admission Dx/Problem (Free Text): Abdominal pain, recurrent incisional hernia Subjective Update: POD #1. Pt is doing well. Good po intake. Passing gas, no BM yet. Good urine output. Pain controlled. Functional Status: Reports: Pain Controlled, Tolerating Diet, Ambulating, Urinating, Incentive Spirometry - Review of Systems General: Reports: No Symptoms HEENT: Reports: No Symptoms Pulmonary: Reports: No Symptoms Cardiovascular: Reports: No Symptoms Gastrointestinal: Reports: Abdominal Pain Genitourinary: Reports: No Symptoms Musculoskeletal: Reports: No Symptoms Skin: Reports: No Symptoms Neurological: Reports: No Symptoms Psychiatric: Reports: No Symptoms - Patient Data Vitals - Most Recent: Last Vital Signs Temp 36.1 C 10/10/18 03:00 Pulse 68 10/10/18 07:13 Resp 16 10/10/18 03:00 BP 109/62 10/10/18 03:00 Pulse Ox 95 10/10/18 03:00 Weight - Most Recent: 74.843 kg I&O - Last 24 Hours: Intake & Output 10/09/18 10/10/18 10/10/18 22:59 06:59 14:59 Intake Total 990 1681 Output Total 1000 950 Balance -10 731 Med Orders - Current: Current Medications Acetaminophen (Tylenol Extra Strength) 1,000 mg PO Q6H [facility] Last Admin: 10/10/18 03:16 Dose: 1,000 mg Albuterol/Ipratropium (Duoneb 3.0-0.5 Mg/3 Ml) 3 ml INH QIDRT NAHEED Last Admin: 10/10/18 07:12 Dose: 3 ml Albuterol/Ipratropium (Duoneb 3.0-0.5 Mg/3 Ml) 3 ml INH ASDIRECTED PRN PRN Reason: Shortness of Breath Furosemide (Lasix) 20 mg PO DAILY [facility] Hydroxyzine HCl (Vistaril) 100 mg IM Q4H PRN PRN Reason: PAIN Last Admin: 10/09/18 14:43 Dose: 100 mg Dextrose/Lactated Ringer's (Dextrose 5%-Lactated Ringers) 1,000 mls @ 100 mls/ hr IV ASDIRECTED [facility] Naloxone HCl (Narcan) 0.1 mg IV ASDIRECTED PRN PRN Reason: decreased respiratory rate Ondansetron HCl (Zofran) 4 mg IVPUSH Q4H PRN PRN Reason: Nausea Ondansetron HCl (Zofran Odt) 4 mg PO Q4H PRN PRN Reason: Nausea/Vomiting Oxycodone HCl (Oxycodone) 5 mg PO Q4H PRN PRN Reason: Pain Incruse Ellipta 62. (5mg Inhaler (Ptom)) 0 each INH DAILYRT [facility] Optiglipde Eye Patch ((Ptom)) 0 each TOP ASDIRECTED [facility] Discontinued Medications Acetaminophen (Tylenol Extra Strength) 1,000 mg PO ONETIME ONE Stop: 10/09/18 07:17 Last Admin: 10/09/18 07:41 Dose: 1,000 mg Albuterol/Ipratropium (Duoneb 3.0-0.5 Mg/3 Ml) 3 ml NEB ONETIME ONE Stop: 10/09/18 07:18 Last Admin: 10/09/18 08:38 Dose: 3 ml Bupivacaine HCl/Epinephrine Bitart (Marcaine 0.5%/Epinephrine 1:200,000) Confirm Administered Dose 50 ml .ROUTE .STK-MED ONE Stop: 10/09/18 09:55 Last Admin: 10/09/18 10:10 Dose: 20 ml Ropivacaine 38 ml/Dexamethasone 8 mg/Epinephrine HCl 0.4 mg/ Sodium Chloride 39.6 ml 0 ml NERVRT ASDIRECTED [facility] Last Admin: 10/09/18 09:40 Dose: 80 syringe Dexamethasone (Dexamethasone) Confirm Administered Dose 4 mg .ROUTE .STK-MED ONE Stop: 10/09/18 07:38 Fentanyl (Sublimaze) Confirm Administered Dose 250 mcg .ROUTE .STK-MED ONE Stop: 10/09/18 07:38 Glycopyrrolate (Robinul) Confirm Administered Dose 1 mg .ROUTE .STK-MED ONE Stop: 10/09/18 07:38 Hydromorphone HCl (Dilaudid [employer] Super[employer] 15 Mg In Ns 30 Ml) 0 mg IV ASDIRECTED PRN; Protocol PRN Reason: Pain Hydromorphone HCl (Dilaudid) 0.5 mg IVPUSH Q2H PRN PRN Reason: MODERATE PAIN Last Admin: 10/09/18 13:24 Dose: 0.5 mg Hydromorphone HCl (Dilaudid) 1 mg IV Q2H PRN PRN Reason: SEVERE PAIN Linezolid (Zyvox) Confirm Administered Dose 300 mls @ as directed .ROUTE .STK- MED ONE Stop: 10/09/18 06:58 Dextrose/Lactated Ringer's (Dextrose 5%-Lactated Ringers) 1,000 mls @ 100 mls/ hr IV ASDIRECTED [facility] Last Admin: 10/09/18 08:37 Dose: 100 mls/hr Meropenem 500 mg/ Sodium (Chloride) 50 mls @ 100 mls/hr IV ONETIME ONE Stop: 10/09/18 08:59 Last Admin: 10/09/18 09:15 Dose: 100 mls/hr Dextrose/Lactated Ringer's (Dextrose 5%-Lactated Ringers) 1,000 mls @ 150 mls/ hr IV ASDIRECTED [facility] Last Admin: 10/10/18 02:16 Dose: 150 mls/hr Meropenem 500 mg/ Sodium (Chloride) 50 mls @ 100 mls/hr IV Q6H [facility] Stop: 10/10/18 03:29 Last Admin: 10/10/18 02:17 Dose: 100 mls/hr Ketamine HCl (Ketalar) 28 mg IV ASDIRECTED [facility] Ketorolac Tromethamine (Toradol) Confirm Administered Dose 60 mg .ROUTE .STK- MED ONE Stop: 10/09/18 10:49 Linezolid (Zyvox) 600 mg IRR .STK-MED ONE Stop: 10/09/18 10:20 Last Admin: 10/09/18 10:19 Dose: 600 mg Meropenem (Merrem) Confirm Administered Dose 500 mg .ROUTE .STK-MED ONE Stop: 10/09/18 06:57 Last Admin: 10/09/18 10:15 Dose: 500 mg Morphine Sulfate (Morphine) 1 mg IVPUSH Q2H PRN PRN Reason: Pain Last Admin: 10/10/18 05:15 Dose: 1 mg Neostigmine Methylsulfate (Neostigmine) Confirm Administered Dose 5 mg .ROUTE .STK-MED ONE Stop: 10/09/18 07:38 Ondansetron HCl (Zofran) Confirm Administered Dose 4 mg .ROUTE .STK-MED ONE Stop: 10/09/18 07:38 Propofol (Diprivan 20 Ml) Confirm Administered Dose 200 mg .ROUTE .STK-MED ONE Stop: 10/09/18 07:38 Rocuronium [place] (Zemuron) Confirm Administered Dose 50 mg .ROUTE .STK-MED ONE Stop: 10/09/18 07:38 Succinylcholine Chloride (Quelicin) Confirm Administered Dose 200 mg .ROUTE .STK -MED ONE Stop: 10/09/18 07:38 - Exam Quality Assessment: DVT Prophylaxis General: Alert, Oriented HEENT: Pupils Equal Neck: Supple Lungs: Clear to Auscultation, Normal Respiratory Effort Cardiovascular: Regular Rate, Regular Rhythm GI/Abdominal Exam: Normal Bowel Sounds, Soft, No Distention Extremities: Normal Inspection, Normal Range of Motion, Non-Tender, No Pedal Edema, Normal Capillary Refill Skin: Warm, Dry, Intact Wound/Incisions: Healing Well Neurological: No New Focal Deficit Psy/Mental Status: Alert, Normal Affect, Normal Mood - Problem List & Annotations (1) Status post hernia repair SNOMED Code(s): 54843563233928, 67560128706071 Code(s): Z98.890 - OTHER SPECIFIED POSTPROCEDURAL STATES; Z87.19 - PERSONAL HISTORY OF OTHER DISEASES OF THE DIGESTIVE SYSTEM Status: Acute Current Visit: Yes Annotation/Comment:: Recurrent Incisional (2) COPD (chronic obstructive pulmonary disease) SNOMED Code(s): 56191290 Code(s): J44.9 - CHRONIC OBSTRUCTIVE PULMONARY DISEASE, UNSPECIFIED Status : Chronic Current Visit: No (3) H/O gastric bypass SNOMED Code(s): 497691456 Code(s): Z98.890 - OTHER SPECIFIED POSTPROCEDURAL STATES Status: Chronic Current Visit: No - Problem List Review Problem List Initiated/Reviewed/Updated: Yes - Assessment Assessment:: 1. S/P open repair of incisional hernia with mesh 2. H/O gastric bypass 3. COPD - Plan Plan:: Change to po pain medication. Advance to step IV diet. Remove smith. Decrease IVF to 100 ml/hr.
[2018-10-10] MEDS: Furosemide 20 MG Tab PO SCH (08:45)
[2018-10-10] MEDS: INCRUSE ELLIPTA 62.5 MG INH SCH (08:45)
[2018-10-10] MEDS: oxyCODONE 5 MG Tab PO PRN ×2 (12:30→22:21)
[2018-10-11] MEDS: Acetaminophen 500 MG Tab PO SCH (04:15)
[2018-10-11 07:22] VITALS: BP 119/61
[2018-10-11] MEDS: Albuterol/Ipratropium 3.0-0.5 MG/3 ML Neb Soln INH SCH (07:34)
--- NOTE | 2018-10-11 07:52 | PCM.DCSUM1 ---
Discharge Summary - Hospital Course Free Text/Narrative:: Pt is doing very well s/p repair of recurrent incisional hernia with mesh. Bowel movement yesterday. Good oral intake and good pain control. She has been up and walking. Pt was instructed on how to properly care for wound; she is familiar with this process. She does bring up some concerns about her blood sugars going low following meals. She has gone as low as 40 following an egg and 1/4 piece of toast. She does get dizzy during these hypoglycemic episodes. It resolves after eating 1/4 of a banana. Discussed with patient to keep a log of diet and blood sugars until her follow up next week and we will discuss treatment options at that time. Follow up next Tuesday10/18/18. Admission weight: 75.6 kg Discharge weight: 74.8 kg Diagnosis: Stroke: No Modified Piatt Scale: No Signif.Disability Despite Sympt.Able to Carry Out Usual Act./Duties Modified Piatt Scale Score: 1 - Discharge Data Discharge Date: 10/11/18 Discharge Disposition: Home, Self-Care 01 Condition: Good - Discharge Diagnosis/Problem(s) (1) Status post hernia repair SNOMED Code(s): 88264123591037, [id number] ICD Code: Z98.890 - OTHER SPECIFIED POSTPROCEDURAL STATES; Z87.19 - PERSONAL HISTORY OF OTHER DISEASES OF THE DIGESTIVE SYSTEM Status: Acute Current Visit: Yes Problem Details: Recurrent Incisional (2) COPD (chronic obstructive pulmonary disease) SNOMED Code(s): 52745810 ICD Code: J44.9 - CHRONIC OBSTRUCTIVE PULMONARY DISEASE, UNSPECIFIED Status : Chronic Current Visit: No (3) H/O gastric bypass SNOMED Code(s): 556565919 ICD Code: Z98.890 - OTHER SPECIFIED POSTPROCEDURAL STATES Status: Chronic Current Visit: No - Patient Summary/Data Consults: Consultations 10/09/18 11:48 Respiratory Care Assess and Treatment [CONS] Routine Comment: Physician Instructions: - Patient Instructions Diet: Usual Diet as Tolerated, Drink 8-10+ Glasses/Day Activity: No Lifting Over 10 Pounds (for 6 weeks. ) Activity, Other: Walk at least 6 times daily inside your home. Driving: Do Not Drive (for 1 weeks and while on Oxycodone ) Showering/Bathing: May Shower Wound/Incision Care: Keep Operative Site/Wound Site Clean and Dry Notify Provider of: Fever, Increased Pain, Nausea and/or Vomiting Other/Special Instructions: Use incentive inspirometer 10 times every hour while awake for 1 week. Check blood sugars twice a day and as needed when feeling like you are having a reaction. Keep a food journal and bring to clinic appointment. - Discharge Plan Prescriptions/Med Rec: oxyCODONE 5 mg PO Q4H PRN #25 tablet PRN Reason: Pain Home Medications: Home Meds Cholecalciferol (Vitamin D3) [Vitamin D3] 5,000 units PO DAILY 02/06/17 [History ] Cyanocobalamin (Vitamin B-12) [Cyanocobalamin Injection] 1,000 mcg IJ .MONTHLY 02/06/17 [History] Vitamin B Complex [B Complex] 1 cap PO DAILY 02/06/17 [History] Umeclidinium [place] [Incruse Ellipta*] 1 puff IH DAILY 07/04/17 [History] Eye Patch [Opticlude] 1 patch TOP DAILY 10/04/17 [History] diphenhydrAMINE [Benadryl] 25 mg PO Q6H PRN 10/04/17 [History] Calcium Carbonate [Calcium] 500 mg PO BID 07/29/18 [History] Furosemide [Lasix] 20 mg PO DAILY 07/29/18 [History] Multivit with Calcium,Iron,Min [One Daily Women's] 1 each PO BID 10/06/18 [ History] Triamcinolone Acetonide [Kenalog 0.1% Crm] 1 applic TOP BID 10/06/18 [History] Zinc Gluconate [Zinc] 50 mg PO DAILY 10/06/18 [History] Acetaminophen [Tylenol Extra Strength] 1,000 mg PO Q6H tablet 10/11/18 [Rx] oxyCODONE 5 mg PO Q4H PRN #25 tablet 10/11/18 [Rx] Oxygen Therapy Mode: Room Air Referrals: Yasmin Osman PA-C [Physician Sanitation Truck Driver] - 10/18/18 9:30 am - Discharge Summary/Plan Comment DC Time >30 min.: Yes - Patient Data Vitals - Most Recent: Last Vital Signs Temp 36.2 C 10/11/18 07:19 Pulse 64 10/11/18 07:34 Resp 20 10/11/18 07:19 BP 119/61 10/11/18 07:19 Pulse Ox 99 10/11/18 07:19 Weight - Most Recent: 74.843 kg I&O - Last 24 hours: Intake & Output 10/10/18 10/11/18 10/11/18 22:59 06:59 14:59 Intake Total 2334 3540 Output Total 1700 1700 Balance 634 1840 Med Orders - Current: Current Medications Acetaminophen (Tylenol Extra Strength) 1,000 mg PO Q6H [facility] Last Admin: 10/11/18 04:15 Dose: 1,000 mg Albuterol/Ipratropium (Duoneb 3.0-0.5 Mg/3 Ml) 3 ml INH QIDRT [facility] Last Admin: 10/11/18 07:34 Dose: 3 ml Albuterol/Ipratropium (Duoneb 3.0-0.5 Mg/3 Ml) 3 ml INH ASDIRECTED PRN PRN Reason: Shortness of Breath Furosemide (Lasix) 20 mg PO DAILY [facility] Last Admin: 10/10/18 08:45 Dose: 20 mg Hydroxyzine HCl (Vistaril) 100 mg IM Q4H PRN PRN Reason: PAIN Last Admin: 10/09/18 14:43 Dose: 100 mg Dextrose/Lactated Ringer's (Dextrose 5%-Lactated Ringers) 1,000 mls @ 100 mls/ hr IV ASDIRECTED [facility] Last Admin: 10/10/18 20:40 Dose: 100 mls/hr Naloxone HCl (Narcan) 0.1 mg IV ASDIRECTED PRN PRN Reason: decreased respiratory rate Ondansetron HCl (Zofran) 4 mg IVPUSH Q4H PRN PRN Reason: Nausea Ondansetron HCl (Zofran Odt) 4 mg PO Q4H PRN PRN Reason: Nausea/Vomiting Oxycodone HCl (Oxycodone) 5 mg PO Q4H PRN PRN Reason: Pain Last Admin: 10/10/18 22:21 Dose: 5 mg Incruse Ellipta 62. (5mg Inhaler (Ptom)) 0 each INH DAILYRT [facility] Last Admin: 10/10/18 08:45 Dose: 1 each Optiglipde Eye Patch ((Ptom)) 0 each TOP ASDIRECTED [facility] Discontinued Medications Acetaminophen (Tylenol Extra Strength) 1,000 mg PO ONETIME ONE Stop: 10/09/18 07:17 Last Admin: 10/09/18 07:41 Dose: 1,000 mg Albuterol/Ipratropium (Duoneb 3.0-0.5 Mg/3 Ml) 3 ml NEB ONETIME ONE Stop: 10/09/18 07:18 Last Admin: 10/09/18 08:38 Dose: 3 ml Bupivacaine HCl/Epinephrine Bitart (Marcaine 0.5%/Epinephrine 1:200,000) Confirm Administered Dose 50 ml .ROUTE .STK-MED ONE Stop: 10/09/18 09:55 Last Admin: 10/09/18 10:10 Dose: 20 ml Ropivacaine 38 ml/Dexamethasone 8 mg/Epinephrine HCl 0.4 mg/ Sodium Chloride 39.6 ml 0 ml NERVRT ASDIRECTED [facility] Last Admin: 10/09/18 09:40 Dose: 80 syringe Dexamethasone (Dexamethasone) Confirm Administered Dose 4 mg .ROUTE .STK-MED ONE Stop: 10/09/18 07:38 Fentanyl (Sublimaze) Confirm Administered Dose 250 mcg .ROUTE .STK-MED ONE Stop: 10/09/18 07:38 Glycopyrrolate (Robinul) Confirm Administered Dose 1 mg .ROUTE .STK-MED ONE Stop: 10/09/18 07:38 Hydromorphone HCl (Dilaudid Reordering Clerk 15 Mg In Ns 30 Ml) 0 mg IV ASDIRECTED PRN; Protocol PRN Reason: Pain Hydromorphone HCl (Dilaudid) 0.5 mg IVPUSH Q2H PRN PRN Reason: MODERATE PAIN Last Admin: 10/09/18 13:24 Dose: 0.5 mg Hydromorphone HCl (Dilaudid) 1 mg IV Q2H PRN PRN Reason: SEVERE PAIN Linezolid (Zyvox) Confirm Administered Dose 300 mls @ as directed .ROUTE .STK- MED ONE Stop: 10/09/18 06:58 Dextrose/Lactated Ringer's (Dextrose 5%-Lactated Ringers) 1,000 mls @ 100 mls/ hr IV ASDIRECTED [facility] Last Admin: 10/09/18 08:37 Dose: 100 mls/hr Meropenem 500 mg/ Sodium (Chloride) 50 mls @ 100 mls/hr IV ONETIME ONE Stop: 10/09/18 08:59 Last Admin: 10/09/18 09:15 Dose: 100 mls/hr Dextrose/Lactated Ringer's (Dextrose 5%-Lactated Ringers) 1,000 mls @ 150 mls/ hr IV ASDIRECTED [facility] Last Admin: 10/10/18 02:16 Dose: 150 mls/hr Meropenem 500 mg/ Sodium (Chloride) 50 mls @ 100 mls/hr IV Q6H [facility] Stop: 10/10/18 03:29 Last Admin: 10/10/18 02:17 Dose: 100 mls/hr Ketamine HCl (Ketalar) 28 mg IV ASDIRECTED [facility] Ketorolac Tromethamine (Toradol) Confirm Administered Dose 60 mg .ROUTE .STK- MED ONE Stop: 10/09/18 10:49 Linezolid (Zyvox) 600 mg IRR .STK-MED ONE Stop: 10/09/18 10:20 Last Admin: 10/09/18 10:19 Dose: 600 mg Meropenem (Merrem) Confirm Administered Dose 500 mg .ROUTE .STK-MED ONE Stop: 10/09/18 06:57 Last Admin: 10/09/18 10:15 Dose: 500 mg Morphine Sulfate (Morphine) 1 mg IVPUSH Q2H PRN PRN Reason: Pain Last Admin: 10/10/18 05:15 Dose: 1 mg Neostigmine Methylsulfate (Neostigmine) Confirm Administered Dose 5 mg .ROUTE .STK-MED ONE Stop: 10/09/18 07:38 Ondansetron HCl (Zofran) Confirm Administered Dose 4 mg .ROUTE .STK-MED ONE Stop: 10/09/18 07:38 Propofol (Diprivan 20 Ml) Confirm Administered Dose 200 mg .ROUTE .STK-MED ONE Stop: 10/09/18 07:38 Rocuronium [place] (Zemuron) Confirm Administered Dose 50 mg .ROUTE .STK-MED ONE Stop: 10/09/18 07:38 Succinylcholine Chloride (Quelicin) Confirm Administered Dose 200 mg .ROUTE .STK -MED ONE Stop: 10/09/18 07:38
[2018-10-11] MEDS: Furosemide 20 MG Tab PO SCH (08:10)
[2018-10-11] MEDS: INCRUSE ELLIPTA 62.5 MG INH SCH (08:10)
--- NOTE | 2018-10-16 12:56 | OR ---
DATE OF PROCEDURE: 10/09/2018 PREOPERATIVE DIAGNOSIS: Recurrent incisional hernia. POSTOPERATIVE DIAGNOSES: 1. Recurrent incarcerated incisional hernia. 2. Extensive intraabdominal adhesions. OPERATIVE PROCEDURE: 1. Open repair of recurrent incarcerated incisional hernia with mesh (66857, 13269). 2. Placement of Interceed mesh to displace pelvic and abdominal wall from underlying viscera to limit recurrent adhesion formation (64274). ANESTHESIA: General. SHOP ESTIMATOR: Yasmin Osman PA-C. INDICATIONS FOR PROCEDURE: This is a 58-year-old female, presenting with an evident recurrence of an incisional hernia in the right upper abdomen. Plan is to proceed with a lateral incision approaching this from vantage point as the patient has quite a bit in the way of mesh closure to the midline. Potential risks of the procedure including bleeding, infection, injury to underlying viscera, problems with mesh becoming infected or the hernia recurring were all reviewed, and the patient wishes to proceed. PROCEDURE DETAILS: The patient was taken to the operating room and placed in a supine position. After general endotracheal anesthesia was induced, a Armstrong catheter was inserted and the abdomen prepped and draped. The right subcostal incision was then made and carried down through the skin and subcutaneous tissue and laterally into the peritoneal cavity. As one approached the area of the previously placed mesh, it was noted that there was still some mesh rendered to the point where the hernia was recurring but there was a tongue of omentum incarcerated alongside of it. This was reduced and the adhesions taken down underlying this. There was a quite dense adhesion formation that we were able to take down. The visceral adhesions without any enterotomies. Once this was in place, we then elected to use an 11.4 cm circular mesh which was then pulled up through the abdominal wall, where the hernia had recurred thus overlapping the previous mesh to some extent. This was a at [address] hernia patch and it was soaked in antibiotic-containing saline solution prior to this being pulled up. Once this was in place, this was fixed with some titanium tacking screws and to the underlying shelf, and at that point, the repair appeared to be satisfactorily completed. To limit recurrent adhesion formation, Interceed mesh was placed from the pelvis up into the abdominal wall and including underlying the newly placed mesh to limit recurrent adhesion formation. The subcostal incision was then closed with 2 layers of #2 Vicryl stitch, subcutaneous tissue with some 4-0 Vicryl stitch, and skin with raquel. Dressing was applied. The patient was taken to the recovery room in satisfactory condition. There were no evident complications. Physician specimen preparation assistant, Yasmin Osman, played an essential role in assisting in this case, helping to position the patient, retract structures as needed, as well as suturing and cutting sutures when indicated. Her presence improved patient safety and decreased the operative time. Froilan Metz MD /[id number]
== END 2018-10-11 08:53 | disposition home or self-care (01) | DRG 355 ==
LOC: JP.SDS 07:14 → JP.SDSSCHI 07:14 → EDSTATUS 10:15 → JP.MS 11:25
PROVIDERS: ADMIT Surgery; ATTEND Surgery
PROC: 0WUF0JZ Supplement Abdominal Wall with Synthetic Substitute, Open Approach (ICD-10-PCS; principal; 2018-10-09)
PROC: 3E0M05Z Introduction of Adhesion Barrier into Peritoneal Cavity, Open Approach (ICD-10-PCS; 2018-10-09)
DX: K43.2 Incisional hernia without obstruction or gangrene (principal); J44.9 Chronic obstructive pulmonary disease, unspecified; K66.0 Peritoneal adhesions (postprocedural) (postinfection); J45.20 Mild intermittent asthma, uncomplicated; I10 Essential (primary) hypertension; Z86.69 Personal history of other diseases of the nervous system and sense organs; Z86.711 Personal history of pulmonary embolism; M81.0 Age-related osteoporosis without current pathological fracture; E53.8 Deficiency of other specified B group vitamins; E53.9 Vitamin B deficiency, unspecified; Z98.84 Bariatric surgery status; E55.9 Vitamin D deficiency, unspecified; L83 Acanthosis nigricans; R73.03 Prediabetes; Z77.22 Contact with and (suspected) exposure to environmental tobacco smoke (acute) (chronic); Z88.1 Allergy status to other antibiotic agents; Z88.7 Allergy status to serum and vaccine; Z91.048 Other nonmedicinal substance allergy status
CPT/HCPCS: 94640; 94762; A9270-GY; C1781; J0171; J0330; J1100; J1170; J1885; J2020; J2185; J2270; J2405; J2704; J2710; J2795; J3010; J3410; J3490; J7042; J7050; J7620-GY

== ENCOUNTER 2019-05-09 13:40 | Inpatient (IN) | payer MEDICARE, MEDICAID ==
[2019-05-09] MEDS ORDERED: Naloxone 0.4 MG/ML SDV IV PRN (14:02)
[2019-05-09] MEDS ORDERED: Ondansetron 4 MG/2 ML SDV IVPUSH PRN (14:09)
[2019-05-09] MEDS ORDERED: Lactated Ringers 500 ML IV ONE (14:30)
[2019-05-09] MEDS ORDERED: Iopamidol 612 MG/ML 30 ML SDV PO ONE (15:11)
[2019-05-09] MEDS ORDERED: Sodium Chloride 0.9% 10 ML Syringe FLUSH PRN (15:13)
[2019-05-09] MEDS ORDERED: Iopamidol 612 MG/ML 100 ML Bottle IV PRN (15:13)
[2019-05-09] MEDS: Pantoprazole 40 MG Vial IV SCH (16:10)
[2019-05-09] MEDS: HYDROmorphone/Normal Saline 15 MG/30 ML PCA IV PRN (16:12)
[2019-05-09] MEDS: Dextrose 5%-Lactated Ringers 1,000 ML IV SCH (16:15)
--- NOTE | 2019-05-09 16:44 | CRLCT ---
INDICATION: Abdominal pain TECHNIQUE: CT abdomen and pelvis acquired with 100 cc Isovue-300 IV contrast. COMPARISON: September 29, 2018 FINDINGS: Lower chest: Unremarkable. Liver: Unremarkable. Spleen: Trace perisplenic fluid. Pancreas: Unremarkable. Gallbladder and bile ducts: S/p cholecystectomy. Mild intrahepatic and extrahepatic biliary ductal dilatation may be due to reservoir effect. Adrenal glands: Unremarkable. Kidneys: Simple cyst left kidney. GI tract: Status post gastric bypass procedure. Multiple loops of dilated small bowel reaching a maximum diameter 5.1 cm. Transition point is in the left lower quadrant, best seen on image 40 series 3. The colon is decompressed. Vascular structures: Unremarkable. Lymph nodes: Unremarkable. Miscellaneous: Status post ventral herniorrhaphy. No free air or significant free fluid. Pelvic Organs: The uterus appears to be surgically absent. Bones: Status post right hip arthroplasty. IMPRESSION: Small-bowel obstruction with transition point in the left lower quadrant. Status post cholecystectomy, gastric bypass procedure, ventral herniorrhaphy, hysterectomy, and right hip arthroplasty Please note that all CT scans at this facility use dose modulation, iterative reconstruction, and/or weight-based dosing when appropriate to reduce radiation dose to as low as reasonably achievable. Dictated by Katarina Karimi MD @ May 09 2019 4:27PM Signed by Dr. Katarina Karimi @ May 09 2019 4:42PM
[2019-05-09] MEDS ORDERED: FLU Vacc QS2019-20(6MOS+)/PF 60 MCG/0.5 ML SYRINGE IM ONE (21:00)
[2019-05-09] MEDS: Glycopyrrolate 15.6 MCG Cap.W.Dev Kit of 6 IH SCH (21:30)
[2019-05-10] MEDS: Dextrose 5%-Lactated Ringers 1,000 ML IV SCH ×4 (01:19→23:07)
[2019-05-10] MEDS: HYDROmorphone/Normal Saline 15 MG/30 ML PCA IV PRN (02:42)
--- NOTE | 2019-05-10 03:39 | CRLCR ---
Indication: Small-bowel obstruction follow-up Technique: Abdomen 2 view Comparison: Abdomen pelvis CT 05/09/2019 Findings/Impression: Multiple surgical clips are present in the upper abdomen as well as a suture line and prior hernia mesh. Multiple dilated loops of bowel are re- demonstrated within the midline without marcela pneumatosis. No pneumoperitoneum seen. Status post right total hip replacement. Findings are consistent with a small-bowel obstruction and similar to the prior exam. Dictated by Matt Mortensen MD @ May 10 2019 3:35AM Signed by Dr. Matt Mortensen @ May 10 2019 3:37AM
--- NOTE | 2019-05-10 07:43 | PN ---
DATE OF SERVICE: 05/10/2019 SUBJECTIVE: Alea was admitted yesterday for a partial small bowel obstruction. She rates her pain a 7/10. 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 She did have bed bugs with live bugs in her clothing. Proper precautions were taken. She was moved to a different room. Vital signs have been stable. She has been up ambulating. Oral intake was ice chips. IV is running at 100 mL per hour. She has voided twice and these were not measured. No fever, chills, night sweats, or fatigue. Denies any chest pain. No shortness of breath or cough. No nausea, vomiting, diarrhea. States she is not passing any gas. Denies any bloating. OBJECTIVE: : No UTI signs and symptoms. EXTREMITIES: Negative. SKIN: She is itching quite a bit. She does have some small bite burgos noted on her arms and chest. NEUROLOGIC: Intact. PSYCHIATRIC: Mood and affect appropriate. ASSESSMENT: 1. Partial small bowel obstruction. 2. Bedbugs. 3. Status post Andreia-en-Y gastric bypass surgery. 4. Unspecified surgical malabsorption. 5. Vitamin B deficiency. 6. Vitamin D deficiency. PLAN: 1. Abdominal flat and upright x-rays daily x5 at 0400 starting tomorrow. 2. Dulcolax suppositories b.i.d. scheduled. 3. Continue ice chips only. 4. Ambulate at least 6 times daily. 5. We will evaluate p.r.n. or in a.m. Yasmin Osman PA-C /[id number]
[2019-05-10] MEDS: Glycopyrrolate 15.6 MCG Cap.W.Dev Kit of 6 IH SCH ×2 (08:33→20:04)
[2019-05-10] MEDS: Bisacodyl 10 MG Supp RECTAL SCH ×2 (08:41→20:04)
[2019-05-10] MEDS: Pantoprazole 40 MG Vial IV SCH (17:28)
--- NOTE | 2019-05-11 04:11 | CRLCR ---
Indication: Small-bowel obstruction follow-up Technique: Abdomen 2 view, 4 films Comparison: Abdomen series 05/10/2019 Findings/Impression: Surgical clips and suture line is present in the upper abdomen with a mesh in the right abdomen. There are dilated loops of small bowel within the mid abdomen consistent with the given history of small bowel obstruction although caliber of the small bowel has decreased compared to the prior examination. Right total hip replacement demonstrated. Dictated by Matt Mortensen MD @ May 11 2019 4:08AM Signed by Dr. Matt Mortensen @ May 11 2019 4:09AM
[2019-05-11] MEDS: Glycopyrrolate 15.6 MCG Cap.W.Dev Kit of 6 IH SCH ×2 (06:59→21:09)
[2019-05-11] MEDS ORDERED: Iohexol 300 MG/ML 30 ML Bottle PO ONE (07:57)
[2019-05-11] MEDS: Dextrose 5%-Lactated Ringers 1,000 ML IV SCH ×2 (08:17→17:53)
[2019-05-11] MEDS: Bisacodyl 10 MG Supp RECTAL SCH ×2 (08:19→21:09)
--- NOTE | 2019-05-11 08:49 | PN ---
DATE OF SERVICE: 05/11/2019 SUBJECTIVE: Alea reports her pain when she came in was a 10/10, now it is a 7/10. 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 Oral intake with ice chips was 1480 and urine output 2250. She has had 4 bowel movements, passing flatus. Vital signs have been stable. She has been up ambulating. REVIEW OF SYSTEMS: Remainder of review of systems negative for any pertinent positives and negatives. OBJECTIVE: GENERAL: Alea Contreras is a 58-year-old female. She is alert and orientated. Looks like she is feeling much better. VITAL SIGNS: TPR is 97.2, 65, 16. Blood pressure 112/66. HEENT: Negative. NECK: Supple. HEART: Regular rate and rhythm. LUNGS: Clear. ABDOMEN: Soft, nontender. EXTREMITIES: Without peripheral edema. ASSESSMENT: 1. Partial small bowel obstruction. 2. Bedbugs. 3. Status post Andreia-en-Y gastric bypass surgery. 4. Unspecified surgical malabsorption. 5. Vitamin B12 and B1 deficiency. 6. Vitamin D deficiency. PLAN: 1. Remain n.p.o. with ice chips only and sips of clear. 2. 100 mL water-soluble contrast now and check abdominal flat and upright at noon and 1800 today and on 05/12/2019 at 0500. 3. We will evaluate p.r.n. or in a.m. Yasmin Osman PA-C /[id number]
[2019-05-11] MEDS: HYDROmorphone/Normal Saline 15 MG/30 ML PCA IV PRN (12:06)
[2019-05-11] MEDS: Pantoprazole 40 MG Vial IV SCH (17:54)
--- NOTE | 2019-05-11 19:14 | CRLCR ---
INDICATION: Partial small bowel obstruction TECHNIQUE: Abdomen 2 view. COMPARISON: Abdominal x-rays earlier same day 05/11/2019 at 3:36 p.m. FINDINGS/IMPRESSION: Overall no significant change. There are mildly dilated loops of small bowel along the right aspect of the abdomen. A few scattered air-fluid levels are also present. No free air seen below the diaphragms. Dictated by Luanne Caro MD @ 05/11/2019 7:13:07 PM Dictated by: Luanne Caro MD @ 05/11/2019 19:13:21 (Electronically Signed)
--- NOTE | 2019-05-12 05:00 | CRLCR ---
Indication: Partial small bowel obstruction. Technique: Abdomen 2 view, 4 films Comparison: Abdomen series 05/11/2019 Findings/Impression: Dilated loops of small bowel are present in the midline with a small amount of colonic air. Upper abdominal surgical clips as well as hernia mesh re- demonstrated. Status post right total hip replacement. Compared to the prior exam, small bowel caliber is fairly similar. Dictated by Matt Mortensen MD @ May 12 2019 4:56AM Signed by Dr. Matt Mortensen @ May 12 2019 4:59AM
[2019-05-12] MEDS: Glycopyrrolate 15.6 MCG Cap.W.Dev Kit of 6 IH SCH ×2 (07:52→20:46)
[2019-05-12] MEDS: Dextrose 5%-Lact Ringers w/KCl 1,000 ML IV SCH ×2 (11:27→21:01)
[2019-05-12] MEDS: Pantoprazole 40 MG Vial IV SCH (16:40)
[2019-05-13] MEDS ORDERED: Iopamidol 612 MG/ML 150 ML Bottle IV ONE (03:39)
--- NOTE | 2019-05-13 05:19 | CRLCT ---
INDICATION: Small-bowel obstruction follow-up TECHNIQUE: CT abdomen and pelvis acquired with 122 cc Isovue-300 intravenous contrast. COMPARISON: Abdomen and pelvis CT 05/09/2019 FINDINGS: Lower chest: Trace bilateral pleural effusions. Minimal basilar discoid atelectasis. Liver: Normal in contour without focal lesion. Gallbladder and bile ducts: Status post cholecystectomy. Intra and extrahepatic biliary dilatation although not significantly changed from the prior exam. Pancreas: Unremarkable. No mass or inflammation. Spleen: Unremarkable. Normal in size. No masses. Adrenal glands: Unremarkable. No nodules. Kidneys: Kidneys show symmetric enhancement with a likely cyst in the midleft kidney measuring less 1 centimeter. GI tract: The patient is status post gastric bypass as well as a ventral mesh. There are no dilated loops of large or small intestine. Mild fold thickening of several small bowel loops in the pelvis is questioned. Vasculature: Unremarkable. Pelvis: Bladder unremarkable. Patient is status posthysterectomy. Bones: Status post right total hip replacement. Degenerative disc disease lumbar spine. IMPRESSION: 1. Mild small bowel fold thickening within the pelvis, possibly part of an enteritis. However, compared to the prior examination the small bowel is now decompressed and normal in caliber. 2. Status post gastric bypass, mesh, cholecystectomy and hysterectomy. Please note that all CT scans at this facility use dose modulation, iterative reconstruction, and/or weight-based dosing when appropriate to reduce radiation dose to as low as reasonably achievable. Dictated by Matt Mortensen MD @ May 13 2019 5:08AM Signed by Dr. Matt Mortensen @ May 13 2019 5:17AM
[2019-05-13] MEDS: Glycopyrrolate 15.6 MCG Cap.W.Dev Kit of 6 IH SCH ×2 (07:25→20:55)
[2019-05-13] MEDS ORDERED: oxyCODONE 5 MG Tab PO PRN (08:04)
[2019-05-13] MEDS: Magnesium Oxide 400 MG Tab PO SCH ×2 (09:42→22:18)
[2019-05-13] MEDS: Furosemide 20 MG Tab PO SCH (09:42)
[2019-05-13] MEDS: Acetaminophen 500 MG Tab PO SCH ×3 (09:43→22:18)
--- NOTE | 2019-05-14 05:53 | CRLCR ---
Indication: Small-bowel obstruction follow-up Technique: Abdomen 2 view Comparison: Abdomen and pelvis CT 05/13/2019 Findings/Impression: Patient is status post upper abdominal surgery with multiple surgical clips as well as mesh. Bowel gas pattern is nonspecific although without clearly dilated loops of large or small intestine. Lung bases are clear. Right total hip replacement noted. Dictated by Matt Mortensen MD @ May 14 2019 5:48AM Signed by Dr. Matt Mortensen @ May 14 2019 5:51AM
[2019-05-14] MEDS: Glycopyrrolate 15.6 MCG Cap.W.Dev Kit of 6 IH SCH (07:10)
[2019-05-14] MEDS: Acetaminophen 500 MG Tab PO SCH (07:26)
[2019-05-14 07:41] VITALS: BP 133/72; PULSE 65
[2019-05-14] MEDS: Furosemide 20 MG Tab PO SCH (08:39)
[2019-05-14] MEDS: Magnesium Oxide 400 MG Tab PO SCH (08:39)
--- NOTE | 2019-05-14 09:27 | DISCH ---
ADMISSION DIAGNOSES: 1. Partial small bowel obstruction. 2. Status post Andreia-en-Y gastric bypass surgery. 3. Unspecified surgical malabsorption. 4. B12 deficiency. 5. Chronic obstructive pulmonary disease. 6. Asthma. 7. Prediabetes. DISCHARGE DIAGNOSIS: Status post partial small bowel obstruction. HISTORY: Alea Contreras was admitted to the hospital on 05/09/2019 with severe abdominal pain. A CT revealed partial small bowel obstruction. She was given Dulcolax suppositories and remained n.p.o. On 05/11/2019, she had 100 mL of water-soluble contrast and then an upright abdominal film was checked at noon, 1800, and the next day on 05/12. She continued to slowly progress and started on a clear liquid diet and then advanced to full. Her abdominal and pelvic x-ray showed improvement on 05/13, and it showed complete resolution on 05/14/2019. She was able to be discharged to home without any complications. PHYSICAL EXAMINATION: GENERAL: Alea Contreras is a 58-year-old female. VITAL SIGNS: Height is 5 feet 2 inches, weight is 179 pounds, BMI 32. TPR 96.4, 67, 16, blood pressure is 132/69. HEENT: Negative. NECK: Supple. HEART: Regular rate and rhythm. LUNGS: Clear. ABDOMEN: Soft, nontender. EXTREMITIES: Without peripheral edema. DISPOSITION: Discharged to home. CONDITION: Stable and improving. FOLLOWUP APPOINTMENT: Yasmin Osman PA-C, on 05/21/2019 at 9:15 a.m. MEDICATIONS: She is to resume all her home medications. DIET: Full liquid diet for 2 weeks and she is to drink 8 to 10 glasses of water a day. ACTIVITY: As tolerated. May shower. DISCHARGE INSTRUCTIONS: Notify provider if any fever, increased pain, nausea, or vomiting. Keep a food and liquid diet chart if you are having any nausea, vomiting, or pain.
--- NOTE | 2019-05-14 11:35 | PN ---
DATE OF SERVICE: 05/12/2019 The patient has been afebrile with stable vital signs. She states that when she moves her bowels, she still has some abdominal discomfort, but still is not having much at this point. Her abdominal exam is still somewhat distended and mildly uncomfortable with some pressure. She has continued to pass gas and has been stooling 4 times in the last 24 hours. There is air in the colon and rectum, but there is still significant distention of the small bowel. At this point, she appears to be potentially resolving the small bowel obstruction, but may be hitting a steady state of incomplete resolution. We will give her some Ensure Clear today to help with nutritional status and will then otherwise hold her down to clear liquids. We will get a CT abdomen and pelvis in the morning. If it shows continued marked small bowel distention, at that point, we are probably looking at needing to proceed with an exploratory laparotomy and correction of the small bowel obstruction. Froilan Metz MD /[id number]
--- NOTE | 2019-05-14 11:51 | PN ---
DATE OF SERVICE: 05/13/2019 The patient has been afebrile with stable vital signs. She has moved her bowel somewhat more. Her abdominal CT showed now normalization of the small bowel caliber. So, at this point, it appears the small bowel obstruction is resolving non-operatively. We will go up to a full liquid diet today, add some Senna Plus, and recheck an abdominal x-ray tomorrow. If she clinically and radiologically continues to do well, she will likely be able to go home. We will probably keep her on a full liquid diet for a week and then long-term a low- residue-type diet. Her magnesium is marginally low, we will supplement IV today and otherwise switch her over to her at-home pain medicine, which is oxycodone 5 mg q.4 hours p.r.n. Froilan Metz MD /[id number]
== END 2019-05-14 09:25 | disposition home or self-care (01) | DRG 389 ==
LOC: JP.2SS 13:40 → JP.MS 05-10 02:20
PROVIDERS: ADMIT Surgery; ATTEND Surgery
DX: K56.600 Partial intestinal obstruction, unspecified as to cause (principal); K90.9 Intestinal malabsorption, unspecified; E53.8 Deficiency of other specified B group vitamins; J44.9 Chronic obstructive pulmonary disease, unspecified; F32.9 Major depressive disorder, single episode, unspecified; E66.9 Obesity, unspecified; H52.13 Myopia, bilateral; M81.0 Age-related osteoporosis without current pathological fracture; G43.B0 Ophthalmoplegic migraine, not intractable; E55.9 Vitamin D deficiency, unspecified; Z96.641 Presence of right artificial hip joint; T14.8XXA Other injury of unspecified body region, initial encounter; W57.XXXA Bitten or stung by nonvenomous insect and other nonvenomous arthropods, initial encounter; Z96.659 Presence of unspecified artificial knee joint; R73.03 Prediabetes; I10 Essential (primary) hypertension; D50.9 Iron deficiency anemia, unspecified; E53.9 Vitamin B deficiency, unspecified; Z98.84 Bariatric surgery status; Z79.899 Other long term (current) drug therapy; Z98.890 Other specified postprocedural states; Z86.711 Personal history of pulmonary embolism; Z90.49 Acquired absence of other specified parts of digestive tract; Z90.710 Acquired absence of both cervix and uterus; Z23 Encounter for immunization; Z68.32 Body mass index [BMI] 32.0-32.9, adult
CPT/HCPCS: 36415; 74019; 74177; 74250; 80053; 82607; 82728; 82746; 83735; 83880; 84100; 85027; 90686; 94640; 94762; A9270-GY; C9113; G0008; J1170; J2405; J3480; J7030; J7042; Q9967

== ENCOUNTER 2019-12-07 06:31 | Day surgery (SDC) | payer MEDICARE, MEDICAID ==
[2019-12-07] MEDS ORDERED: Sodium Chloride 0.9% 1,000 ML IV SCH (07:00)
[2019-12-07] MEDS ORDERED: fentaNYL 100 MCG/2 ML SDV ONE (07:27)
[2019-12-07] MEDS ORDERED: Propofol 200 MG/20 ML SDV ONE (07:27)
[2019-12-07] MEDS ORDERED: Midazolam 1 MG/ML 2 ML SDV ONE (07:27)
[2019-12-07 08:25] VITALS: PULSE 65
[2019-12-07 09:06] VITALS: BP 103/64
--- NOTE | 2019-12-07 11:12 | OR ---
DATE OF PROCEDURE: 12/07/2019 SURGEON: Jose Wray MD PROCEDURE: Colonoscopy. FINDINGS: Normal colonoscopy. COMPLICATIONS: None. SUBSTATION DESIGNER: None. ANESTHETIC: MAC. PREOPERATIVE DIAGNOSIS: Screening colonoscopy. POSTOPERATIVE DIAGNOSIS: Screening colonoscopy. RISKS: Risks, benefits, alternatives, and limitations including, but not limited to, infection, bleeding, and perforation were explained to the patient and wished to proceed. PROCEDURE IN DETAIL: The patient was placed in left lateral decubitus position. Digital rectal exam was performed without abnormality. Scope was introduced and advanced atraumatically to the ileocecal valve. Scope was brought back through the ascending, transverse, descending colon, and retroflexed. No evidence of old or new blood. No masses. No polyps. No diverticulosis. The prep was marginal, but greater than 95% luminal surface could be seen. No abnormalities on retroflex. The patient tolerated the procedure well. Jose Wray MD /[id number] MTDD
== END 2019-12-07 09:20 | disposition home or self-care (01) ==
LOC: JP.SDS 06:31
PROVIDERS: ATTEND Surgery
DX: Z12.11 Encounter for screening for malignant neoplasm of colon (principal); I10 Essential (primary) hypertension; J44.9 Chronic obstructive pulmonary disease, unspecified
CPT/HCPCS: G0121; J2250; J2704; J3010; J7030

== ENCOUNTER 2020-02-04 18:15 | Emergency (ER) | payer MEDICARE, MEDICAID ==
--- NOTE | 2020-02-04 18:47 | EDM.PDOC ---
<JollyDonovan Alex - Last Filed: 02/04/20 18:47> ED HPI GENERAL MEDICAL PROBLEM - General Chief Complaint: Abdominal Pain Stated Complaint: ABD PAIN Time Seen by Provider: 02/04/20 18:48 Abdominal Pain Score (Numeric/FACES): 8 - Related Data Allergies Allergy/AdvReac Type Severity Reaction Status Date / Time dog dander Allergy Intermediate Difficulty Verified 02/04/20 19:14 Breathing adhesive tape Allergy Rash Verified 02/04/20 19:14 albuterol Allergy Rash Verified 02/04/20 19:14 cephalexin [From Keflex] Allergy Rash Verified 02/04/20 19:14 cat dander AdvReac Sneezing Verified 02/04/20 19:14 bandaid Allergy Rash Uncoded 02/04/20 19:14 Home Meds: Home Meds Cyanocobalamin (Vitamin B-12) [Cyanocobalamin Injection] 1,000 mcg IJ .MONTHLY 02/06/17 [History] Vitamin B Complex [B Complex] 1 cap PO DAILY 02/06/17 [History] Eye Patch [Opticlude] 1 patch TOP DAILY 10/04/17 [History] diphenhydrAMINE [Benadryl] 25 mg PO Q6H PRN 10/04/17 [History] Furosemide [Lasix] 40 mg PO DAILY 07/29/18 [History] Triamcinolone Acetonide [Kenalog 0.1% Crm] 1 applic TOP BID PRN 10/06/18 [History] Latanoprost/Pf [Latanoprost 0.005% Eye Drop] 1 drop EYEBOTH BEDTIME 12/06/19 [History] Fluticasone/Umeclidin/Vilanter [Trelegy Ellipta 100-62.5-25] 1 puff INH DAILY 02/04/20 [History] Past Medical History HEENT History: Reports: Cataract, Glaucoma, Hard of Hearing, Impaired Vision, Macular Degeneration Other HEENT History: Blind in left eye, deaf in right ear Respiratory History: Reports: Asthma, COPD, PE, Other (See Below) Other Respiratory History: emphysema Gastrointestinal History: Reports: Bowel Obstruction, Cholelithiasis, Hiatal Hernia, Other (See Below) Other Gastrointestinal History: abdominal inc hernia Genitourinary History: Reports: None TREATING ENGINEER History: Reports: Dysfunctional Uterine Bleeding, Musculoskeletal History: Reports: Arthritis, Other (See Below), Osteoporosis, Osteoarthritis Other Musculoskeletal History: degenrative disc lower back Neurological History: Reports: Concussion Endocrine/Metabolic History: Reports: Obesity/BMI 30+, Other (See Below) Other Endocrine/Metabolic History: Borderline Diabetic Hematologic History: Reports: B12 Deficiency, Blood Transfusion(s), Iron Deficiency Dermatologic History: Reports: Venous Stasis Dermatitis - Infectious Disease History Infectious Disease History: Reports: Chicken Pox, Measles, Mumps, Rubella - Past Surgical History Musculoskeletal Surgical History: Reports: Hip Replacement, Knee Replacement, Other (See Below), Shoulder Surgery Social & Family History - Family History Family Medical History: Noncontributory Respiratory: Reports: Interstitial Lung Disease Endocrine/Metabolic: Reports: Diabetes, type II Oncologic: Reports: Breast - Caffeine Use Caffeine Use: Reports: Coffee Other Caffeine Use: 2 cups per day Caffeine Use Comment: daily caffeine use Departure - Departure Disposition: Home, Self-Care 01 Clinical Impression: Abdominal pain Qualifiers: Abdominal location: epigastric Qualified Code(s): R10.13 - Epigastric pain Urinary tract infection Qualifiers: Urinary tract infection type: acute cystitis Hematuria presence: with hematuria Qualified Code(s): N30.01 - Acute cystitis with hematuria - Discharge Information Instructions: Antibiotic Medicine, Adult, Abdominal Pain, Adult, [id number], Urinary Tract Infection, Adult, [id number] Referrals: Lexis Pa DO [Primary Care Provider] - Forms: ED Department Discharge Additional Instructions: Septra double strength tablet 1 orally twice a day. Drink several extra glasses of water per day. Prescription is provided for Septra antibiotic. Definitely return if your abdominal pain gets worse, you develop recurrent vomiting, or fever. <Freddy Marroquin - Last Filed: 02/04/20 21:32> ED HPI GENERAL MEDICAL PROBLEM - General Source of Information: Reports: Patient History Limitations: Reports: No Limitations - History of Present Illness INITIAL COMMENTS - FREE TEXT/NARRATIVE: States pain started @ 3P today. Ate at 4:30PM. Took nothing for pain. feels bloated. Feels like when she's had SBO in past. S/P destinee bypass. Onset: Today Onset Date: 02/04/20 Onset Time: 15:00 Duration: Getting Worse Location: Reports: Abdomen (epigastric) Quality: Reports: Ache Severity: Severe Associated Symptoms: Reports: No Other Symptoms Treatments HYDROELECTRIC STATION CHIEF: Reports: Other (see below) (None) Past Medical History - Past Surgical History GI Surgical History: Reports: Bariatric Procedure ED ROS GENERAL - Review of Systems Review Of Systems: See Below Constitutional: Denies: Fever HEENT: Reports: No Symptoms Respiratory: Reports: No Symptoms Cardiovascular: Reports: No Symptoms GI/Abdominal: Reports: Abdominal Pain. Denies: Anorexia, Constipation, Diarrhea, Nausea, Vomiting : Denies: Dysuria Musculoskeletal: Reports: No Symptoms Skin: Reports: No Symptoms Neurological: Reports: No Symptoms ED EXAM, GI/ABD - Physical Exam Exam: See Below Exam Limited By: No Limitations General Appearance: Alert, Obese Throat/Mouth: Normal Lips, Normal Gums Head: Atraumatic Neck: Normal Inspection Respiratory/Chest: No Respiratory Distress, Lungs Clear Cardiovascular: Normal Peripheral Pulses, Regular Rate, Rhythm GI/Abdominal Exam: Tender (no guarding or rebound but upper abd tense to palpation.), Abnormal Bowel Sounds (hyperactive) Extremities: Normal Range of Motion, Non-Tender Neurological: Alert, Oriented, Normal Cognition Psychiatric: Normal Affect, Normal Mood Skin Exam: Warm, Dry, No Rash EKG INTERPRETATION EKG Date: 02/04/20 Time: 19:05 Rhythm: NSR Rate (Beats/Min): 73 [place]: Normal QRS: Normal ST-T: Normal Course - Vital Signs Text/Narrative:: Initial Diff Dx: SBO, gastritis, pancreatitis, [place], CAD. CT scan shows no bowel obstruction. There is considerable gas throughout. This is consistent with urinary tract infection. Last Recorded V/S: Last Vital Signs Temp 35.2 C L 02/04/20 19:14 Pulse 71 02/04/20 21:04 Resp 20 02/04/20 19:14 BP 136/56 L 02/04/20 21:04 Pulse Ox 93 L 02/04/20 21:04 - Orders/Labs/Meds Orders: Active Orders 24 hr Category Date Time Status EKG Documentation Completion [RC] ASDIRECTED Care 02/04/20 18:55 Active NPO [Nothing Per Oral Diet] [DIET] Diet 02/05/20 Breakfast Active Iopamidol [Isovue-300 (61%)] Med 02/04/20 19:15 Active 100 ml IV . DIRECTED Sodium Chloride 0.9% [Normal Saline] 1,000 ml Med 02/04/20 19:00 Active IV ASDIRECTED Sodium Chloride 0.9% [Normal Saline] 80 ml Med 02/04/20 19:15 Active IV ASDIRECTED Sodium Chloride 0.9% [Saline Flush] Med 02/04/20 19:07 Active 10 ml FLUSH ASDIRECTED PRN EKG 12 Lead [EK] Urgent Ther 02/04/20 18:54 Ordered Medication Orders Sodium Chloride (Normal Saline) 1,000 mls @ 500 mls/hr IV ASDIRECTED NAHEED Last Admin: 02/04/20 19:41 Dose: 500 mls/hr Documented by: ONI Sodium Chloride (Normal Saline) 80 mls @ 3 mls/sec IV ASDIRECTED NAHEED Last Admin: 02/04/20 20:08 Dose: 3 mls/sec Documented by: ELSA Iopamidol (Isovue-300 (61%)) 100 ml IV . DIRECTED NAHEED Last Admin: 02/04/20 20:09 Dose: 100 ml Documented by: ELSA Sodium Chloride (Saline Flush) 10 ml FLUSH ASDIRECTED PRN PRN Reason: Keep Vein Open Last Admin: 02/04/20 20:09 Dose: 10 ml Documented by: ELSA Labs: Laboratory Tests 02/04/20 02/04/20 02/04/20 Range/Units 19:10 19:10 19:10 WBC 5.0 (4.5-11.0) K/uL RBC 3.77 (3.30-5.50) M/uL Hgb 10.8 L (12.0-15.0) g/dL Hct 34.8 L (36.0-48.0) % MCV 92 (80-98) fL MCH 29 (27-31) pg MCHC 31 L (32-36) % Plt Count 276 (150-400) K/uL PT 10.4 (9.5-12.0) sec INR 0.95 (0.80-1.20) Sodium (140-148) mmol/L Potassium (3.6-5.2) mmol/L Chloride (100-108) mmol/L Carbon Dioxide (21-32) mmol/L Anion Gap (5.0-14.0) mmol/L BUN (7-18) mg/dL Creatinine (0.6-1.0) mg/dL Est Cr Clr Drug Dosing mL/min Estimated GFR (MDRD) (>60) Glucose (74-106) mg/dL Lactic Acid (0.4-2.0) mmol/L Calcium (8.5-10.1) mg/dL Total Bilirubin (0.2-1.0) mg/dL AST (15-37) U/L ALT (12-78) U/L Alkaline Phosphatase (46-116) U/L Troponin I < 0.017 (0.000-0.056) ng/mL Total Protein (6.4-8.2) g/dL Albumin (3.4-5.0) g/dL Globulin (2.3-3.5) g/dL Albumin/Globulin Ratio (1.2-2.2) Lipase 379 (73-393) U/L Urine Color (YELLOW) Urine Appearance (CLEAR) Urine pH (5.0-8.0) Ur Specific [place] (1.008-1.030) Urine Protein (NEGATIVE) mg/dL Urine Glucose (UA) (NEGATIVE) mg/dL Urine Ketones (NEGATIVE) mg/dL Urine Occult Blood (NEGATIVE) Urine Nitrite (NEGATIVE) Urine Bilirubin (NEGATIVE) Urine Urobilinogen (0.2-1.0) EU/dL Ur Leukocyte Esterase (NEGATIVE) Urine RBC (0-5) Urine WBC (0-5) Ur Epithelial Cells Amorphous Sediment Urine Bacteria Urine Mucus 02/04/20 02/04/20 02/04/20 Range/Units 19:10 19:10 20:19 WBC (4.5-11.0) K/uL RBC (3.30-5.50) M/uL Hgb (12.0-15.0) g/dL Hct (36.0-48.0) % MCV (80-98) fL MCH (27-31) pg MCHC (32-36) % Plt Count (150-400) K/uL PT (9.5-12.0) sec INR (0.80-1.20) Sodium 144 (140-148) mmol/L Potassium 4.4 (3.6-5.2) mmol/L Chloride 110 H (100-108) mmol/L Carbon Dioxide 23 (21-32) mmol/L Anion Gap 15.4 H (5.0-14.0) mmol/L BUN 21 H D (7-18) mg/dL Creatinine 0.9 D (0.6-1.0) mg/dL Est Cr Clr Drug Dosing 49.53 mL/min Estimated GFR (MDRD) > 60 (>60) Glucose 90 (74-106) mg/dL Lactic Acid 0.6 (0.4-2.0) mmol/L Calcium 8.3 L (8.5-10.1) mg/dL Total Bilirubin 0.4 (0.2-1.0) mg/dL AST 33 (15-37) U/L ALT 19 (12-78) U/L Alkaline Phosphatase 91 (46-116) U/L Troponin I (0.000-0.056) ng/mL Total Protein 6.6 (6.4-8.2) g/dL Albumin 3.8 (3.4-5.0) g/dL Globulin 2.8 (2.3-3.5) g/dL Albumin/Globulin Ratio 1.4 (1.2-2.2) Lipase (73-393) U/L Urine Color Yellow (YELLOW) Urine Appearance Cloudy A (CLEAR) Urine pH 5.5 (5.0-8.0) Ur Specific [place] >= 1.030 (1.008-1.030) Urine Protein Negative (NEGATIVE) mg/dL Urine Glucose (UA) Negative (NEGATIVE) mg/dL Urine Ketones Negative (NEGATIVE) mg/dL Urine Occult Blood Small H (NEGATIVE) Urine Nitrite Positive H (NEGATIVE) Urine Bilirubin Negative (NEGATIVE) Urine Urobilinogen 0.2 (0.2-1.0) EU/dL Ur Leukocyte Esterase Small H (NEGATIVE) Urine RBC 10-20 H (0-5) Urine WBC 75-100 H (0-5) Ur Epithelial Cells Few Amorphous Sediment Not seen Urine Bacteria Many Urine Mucus Not seen Meds: Medications Generic Name Dose Route Start Last Admin Trade Name Freq PRN Reason Stop Dose Admin Sodium Chloride 1,000 mls @ 500 mls/hr 02/04/20 19:00 02/04/20 19:41 Normal Saline IV 500 mls/hr ASDIRECTED NAHEED Administration Sodium Chloride 80 mls @ 3 mls/sec 02/04/20 19:15 02/04/20 20:08 Normal Saline IV 3 mls/sec ASDIRECTED NAHEED Administration Iopamidol 100 ml 07/20/20 19:15 02/04/20 20:09 Isovue-300 (61%) IV 100 ml . DIRECTED NAHEED Administration Sodium Chloride 10 ml 02/04/20 19:07 02/04/20 20:09 Saline Flush FLUSH 10 ml ASDIRECTED PRN Administration Keep Vein Open Discontinued Medications Generic Name Dose Route Start Last Admin Trade Name Freq PRN Reason Stop Dose Admin Hydromorphone HCl 0.5 mg 02/04/20 18:55 02/04/20 19:42 Dilaudid IVPUSH 02/04/20 18:56 0.5 mg ONETIME ONE Administration Departure - Departure Time of Disposition: 21:29 Condition: Good Sepsis Event Note (ED) - Focused Exam Vital Signs: Vital Signs Temp Pulse Resp BP Pulse Ox 02/04/20 21:04 71 136/56 L 93 L 02/04/20 20:41 84 154/81 H 91 L 02/04/20 19:43 78 157/78 H 02/04/20 19:14 35.2 C L 79 20 149/79 H 95 02/04/20 18:26 35.2 C L 79 20 149/79 H 95 - My Orders Last 24 Hours: My Active Orders 02/04/20 18:54 EKG 12 Lead [EK] Urgent 02/04/20 18:55 EKG Documentation Completion [RC] ASDIRECTED 02/04/20 19:00 Sodium Chloride 0.9% [Normal Saline] 1,000 ml IV ASDIRECTED 02/04/20 19:07 Sodium Chloride 0.9% [Saline Flush] 10 ml FLUSH ASDIRECTED PRN 02/04/20 19:15 Iopamidol [Isovue-300 (61%)] 100 ml IV . DIRECTED Sodium Chloride 0.9% [Normal Saline] 80 ml IV ASDIRECTED 02/05/20 Breakfast NPO [Nothing Per Oral Diet] [DIET] - Assessment/Plan Last 24 Hours: My Active Orders 02/04/20 18:54 EKG 12 Lead [EK] Urgent 02/04/20 18:55 EKG Documentation Completion [RC] ASDIRECTED 02/04/20 19:00 Sodium Chloride 0.9% [Normal Saline] 1,000 ml IV ASDIRECTED 02/04/20 19:07 Sodium Chloride 0.9% [Saline Flush] 10 ml FLUSH ASDIRECTED PRN 02/04/20 19:15 Iopamidol [Isovue-300 (61%)] 100 ml IV . DIRECTED Sodium Chloride 0.9% [Normal Saline] 80 ml IV ASDIRECTED 02/05/20 Breakfast NPO [Nothing Per Oral Diet] [DIET]
[2020-02-04] MEDS ORDERED: HYDROmorphone 0.5 MG/0.5 ML Syringe IVPUSH ONE (18:55)
[2020-02-04] MEDS ORDERED: Sodium Chloride 0.9% 1,000 ML IV SCH (19:00)
[2020-02-04] MEDS ORDERED: Sodium Chloride 0.9% 10 ML Syringe FLUSH PRN (19:07)
[2020-02-04] MEDS ORDERED: Iopamidol 612 MG/ML 100 ML Bottle IV SCH (19:15)
[2020-02-04] MEDS ORDERED: Sodium Chloride 0.9% 80 ML IV SCH (19:15)
--- NOTE | 2020-02-04 21:01 | CRLCT ---
INDICATION: Epigastric abdominal pain. Previous gastric bypass surgery. TECHNIQUE: Contrast-enhanced abdominal pelvic CT. 100 cc nonionic Isovue-300 administered. COMPARISON: May 13, 2019. FINDINGS: There is a moderately large amount of stool and gas scattered throughout portions of the distended colon and rectum. Findings suggest some degree of colonic constipation or even decreased colonic motility. No marcela colonic obstruction. There is some fecalization of a distal small bowel loop. There is a mildly distended fluid filled small bowel loop within the left upper quadrant/left mid abdomen potentially related to gastric bypass surgery. A localized small bowel ileus could not be entirely excluded. Surgically absent gallbladder. Intra and extrahepatic biliary ductal dilatation minimally more pronounced on the prior study but without evidence for stones within the biliary tree. Postsurgical change left upper quadrant and left mid abdomen from gastric bypass surgery. Postsurgical change within the right lower quadrant likely with partial small bowel resection. Surgically absent uterus. Postsurgical change from ventral abdominal wall hernia repair and right hip arthroplasty. The spleen, pancreas, adrenal glands, and kidneys are within normal limits with the exception of a small stable left renal cyst. Normal caliber abdominal aorta and iliac arteries containing vascular calcification. The urinary bladder is unremarkable. Multilevel degenerative disc disease of the included thoracolumbar spine. IMPRESSION: 1. When compared to the prior study the patient has developed gas and fluid filled distended colonic loops throughout the abdomen and pelvis without a transition point. The findings may reflect colonic constipation/decrease colonic motility. 2. There are 2 left upper quadrant/left mid abdominal small bowel loops one of which is distended and fluid-filled and the other demonstrates some fecalization. This may reflect localize small bowel ileus potentially related to gastric bypass surgery. This is also new compared to the prior study. 3. Postsurgical changes as described. Please note that all CT scans at this facility use dose modulation, iterative reconstruction, and/or weight-based dosing when appropriate to reduce radiation dose to as low as reasonably achievable. Dictated by Beto Vu MD @ Feb 04 2020 8:49PM Signed by Dr. Beto Vu @ Feb 04 2020 9:00PM
[2020-02-04 21:05] VITALS: BP 136/56; PULSE 71
== END 2020-02-04 21:53 | disposition home or self-care (01) ==
LOC: JP.ED 18:15
DX: N30.01 Acute cystitis with hematuria (principal); R10.13 Epigastric pain; J44.9 Chronic obstructive pulmonary disease, unspecified; M19.90 Unspecified osteoarthritis, unspecified site; E66.9 Obesity, unspecified; Z68.33 Body mass index [BMI] 33.0-33.9, adult; Z88.8 Allergy status to other drugs, medicaments and biological substances; Z91.048 Other nonmedicinal substance allergy status; Z88.1 Allergy status to other antibiotic agents; Z79.899 Other long term (current) drug therapy
CPT/HCPCS: 36415; 74177; 80053; 81001; 83605; 83690; 84484; 85027; 85610; 93005; 93010; 96374; 99284; J1170; J7030; J7050; Q9967

== ENCOUNTER 2020-02-15 00:10 | Inpatient (IN) | payer MEDICARE, MEDICAID ==
[2020-02-15] MEDS ORDERED: Sodium Chloride 0.9% 10 ML Syringe FLUSH PRN (00:58)
[2020-02-15] MEDS ORDERED: fentaNYL 100 MCG/2 ML SDV IVPUSH ONE (01:00)
[2020-02-15] MEDS ORDERED: Lactated Ringers 1,000 ML IV SCH ×2 (01:00→03:00)
--- NOTE | 2020-02-15 01:01 | EDM.PDOC ---
ED HPI GENERAL MEDICAL PROBLEM - General Chief Complaint: Abdominal Pain Stated Complaint: ABD PAIN Time Seen by Provider: 02/15/20 00:52 Source of Information: Reports: Patient, Family, RN Notes Reviewed History Limitations: Reports: No Limitations - History of Present Illness INITIAL COMMENTS - FREE TEXT/NARRATIVE: 59-year-old female presents emergency department a complaint of abdominal pain, she has history of gastric bypass as well as extensive small bowel obstructions. She states the pain started about 2 and half hours ago feels very similar to prior bowel obstruction she does have diarrhea no nausea or vomiting Upper Abdomen Pain Score (Numeric/FACES): 8 - Related Data Allergies Allergy/AdvReac Type Severity Reaction Status Date / Time dog dander Allergy Intermediate Difficulty Verified 02/15/20 00:40 Breathing adhesive tape Allergy Rash Verified 02/15/20 00:40 albuterol Allergy Rash Verified 02/15/20 00:40 cephalexin [From Keflex] Allergy Rash Verified 02/15/20 00:40 cat dander AdvReac Sneezing Verified 02/15/20 00:40 bandaid Allergy Rash Uncoded 02/15/20 00:40 Home Meds: Home Meds Cyanocobalamin (Vitamin B-12) [Cyanocobalamin Injection] 1,000 mcg IJ .MONTHLY 02/06/17 [History] Vitamin B Complex [B Complex] 1 cap PO DAILY 02/06/17 [History] Eye Patch [Opticlude] 1 patch TOP DAILY 10/04/17 [History] diphenhydrAMINE [Benadryl] 25 mg PO Q6H PRN 10/04/17 [History] Furosemide [Lasix] 40 mg PO DAILY 07/29/18 [History] Triamcinolone Acetonide [Kenalog 0.1% Crm] 1 applic TOP BID PRN 10/06/18 [History] Latanoprost/Pf [Latanoprost 0.005% Eye Drop] 1 drop EYEBOTH BEDTIME 12/06/19 [History] Fluticasone/Umeclidin/Vilanter [Trelegy Ellipta 100-62.5-25] 1 puff INH DAILY 02/04/20 [History] Past Medical History HEENT History: Reports: Cataract, Glaucoma, Hard of Hearing, Impaired Vision, Macular Degeneration Other HEENT History: Blind in left eye, deaf in right ear Respiratory History: Reports: Asthma, COPD, PE, Other (See Below) Other Respiratory History: emphysema Gastrointestinal History: Reports: Bowel Obstruction, Cholelithiasis, Hiatal Hernia, Other (See Below) Other Gastrointestinal History: abdominal inc hernia 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: Dysfunctional Uterine Bleeding, Musculoskeletal History: Reports: Arthritis, Other (See Below), Osteoporosis, Osteoarthritis Other Musculoskeletal History: degenrative disc lower back Neurological History: Reports: Concussion Endocrine/Metabolic History: Reports: Obesity/BMI 30+, Other (See Below) Other Endocrine/Metabolic History: Borderline Diabetic Hematologic History: Reports: B12 Deficiency, Blood Transfusion(s), Iron Deficiency Dermatologic History: Reports: Venous Stasis Dermatitis - Infectious Disease History Infectious Disease History: Reports: Chicken Pox, Measles, Mumps, Rubella - Past Surgical History GI Surgical History: Reports: Bariatric Procedure, Colonoscopy Female Surgical History: Reports: Hysterectomy, Salpingo-Oophorectomy Social & Family History - Family History Family Medical History: Noncontributory Respiratory: Reports: Interstitial Lung Disease Endocrine/Metabolic: Reports: Diabetes, type II Oncologic: Reports: Breast - Tobacco Use Smoking Status *Q: Never Smoker - Caffeine Use Caffeine Use: Reports: Coffee Other Caffeine Use: 2 cups per day Caffeine Use Comment: 4 cups per day - Alcohol Use Days Per Week of Alcohol Use: 7 Number of Drinks Per Day: 4 Total Drinks Per Week: 28 - Recreational Drug Use Recreational Drug Use: No ED ROS GENERAL - Review of Systems Review Of Systems: See Below Constitutional: Reports: No Symptoms Respiratory: Reports: No Symptoms Cardiovascular: Reports: No Symptoms GI/Abdominal: Reports: Abdominal Pain, Diarrhea. Denies: Nausea, Vomiting : Reports: No Symptoms ED EXAM, GI/ABD - Physical Exam Exam: See Below Exam Limited By: No Limitations General Appearance: Alert, WD/WN, No Apparent Distress Respiratory/Chest: No Respiratory Distress, Lungs Clear, Normal Breath Sounds, No Accessory Muscle Use, Chest Non-Tender Cardiovascular: Regular Rate, Rhythm, No Murmur GI/Abdominal Exam: Normal Bowel Sounds, Soft, Tender (Generalized tenderness to palpation) Course - Vital Signs Last Recorded V/S: Last Vital Signs Temp 96.6 F L 02/15/20 00:43 Pulse 71 02/15/20 00:43 Resp 16 02/15/20 00:43 BP 129/70 02/15/20 00:43 Pulse Ox 99 02/15/20 00:43 - Orders/Labs/Meds Orders: Active Orders 24 hr Category Date Time Status Peripheral IV Care [RC] . DIRECTED Care 02/15/20 00:59 Active UA W/MICROSCOPIC [URIN] Urgent Lab 02/15/20 00:58 Ordered Lactated Ringers [Ringers, Lactated] 1,000 ml Med 02/15/20 01:00 Active IV ASDIRECTED Sodium Chloride 0.9% [Saline Flush] Med 02/15/20 00:58 Active 10 ml FLUSH ASDIRECTED PRN Peripheral IV Insertion Adult [OM.PC] Urgent Oth 02/15/20 00:58 Ordered Medication Orders Lactated Ringer's (Ringers, Lactated) 1,000 mls @ 500 mls/hr IV ASDIRECTED NAHEED Last Admin: 02/15/20 02:29 Dose: 500 mls/hr Documented by: MAYELIN Sodium Chloride (Saline Flush) 10 ml FLUSH ASDIRECTED PRN PRN Reason: Keep Vein Open Last Admin: 02/15/20 02:31 Dose: 10 ml Documented by: MAYELIN Labs: Laboratory Tests 02/15/20 02/15/20 02/15/20 Range/Units 01:08 01:08 01:08 WBC 6.5 (4.5-11.0) K/uL RBC 3.97 (3.30-5.50) M/uL Hgb 11.5 L (12.0-15.0) g/dL Hct 36.9 (36.0-48.0) % MCV 93 (80-98) fL MCH 29 (27-31) pg MCHC 31 L (32-36) % Plt Count 291 (150-400) K/uL Neut % (Auto) 77 H (36-66) % Lymph % (Auto) 12 L (24-44) % Allen % (Auto) 7 H (2-6) % Eos % (Auto) 4 (2-4) % Baso % (Auto) 1 (0-1) % Sodium 139 L (140-148) mmol/L Potassium 4.0 (3.6-5.2) mmol/L Chloride 108 (100-108) mmol/L Carbon Dioxide 21 (21-32) mmol/L Anion Gap 14.0 (5.0-14.0) mmol/L BUN 18 (7-18) mg/dL Creatinine 0.7 (0.6-1.0) mg/dL Est Cr Clr Drug Dosing 63.69 mL/min Estimated GFR (MDRD) > 60 (>60) BUN/Creatinine Ratio Not Reportable Glucose 94 (74-106) mg/dL Lactic Acid 1.7 (0.4-2.0) mmol/L Calcium 8.0 L (8.5-10.1) mg/dL Total Bilirubin 0.4 (0.2-1.0) mg/dL AST 32 (15-37) U/L ALT 22 (12-78) U/L Alkaline Phosphatase 93 (46-116) U/L Troponin I < 0.017 (0.000-0.056) ng/mL Total Protein 6.5 (6.4-8.2) g/dL Albumin 3.6 (3.4-5.0) g/dL Globulin 2.9 (2.3-3.5) g/dL Albumin/Globulin Ratio 1.2 (1.2-2.2) Lipase 267 (73-393) U/L Meds: Medications Generic Name Dose Route Start Last Admin Trade Name Freq PRN Reason Stop Dose Admin Lactated Ringer's 1,000 mls @ 500 mls/hr 02/15/20 01:00 02/15/20 02:29 Ringers, Lactated IV 500 mls/hr ASDIRECTED NAHEED Administration Sodium Chloride 10 ml 02/15/20 00:58 02/15/20 02:31 Saline Flush FLUSH 10 ml ASDIRECTED PRN Administration Keep Vein Open Discontinued Medications Generic Name Dose Route Start Last Admin Trade Name Freq PRN Reason Stop Dose Admin Fentanyl 50 mcg 02/15/20 01:00 02/15/20 02:30 Sublimaze IVPUSH 02/15/20 01:01 50 mcg ONETIME ONE Administration Sodium Chloride 70 mls @ 3 mls/sec 02/15/20 01:39 02/15/20 01:50 Normal Saline IV 02/15/20 01:40 3 mls/sec ASDIRECTED STA Administration Iopamidol 100 ml 02/15/20 01:39 02/15/20 01:50 Isovue-300 (61%) IV 02/15/20 01:40 100 ml . DIRECTED STA Administration Departure - Departure Time of Disposition: 02:46 Disposition: Home, Self-Care 01 Condition: Fair Clinical Impression: Small bowel obstruction - Discharge Information Referrals: Lexis Pa DO [Primary Care Provider] - Forms: ED Department Discharge Sepsis Event Note (ED) - Evaluation Sepsis Screening Result: No Definite Risk - Focused Exam Vital Signs: Vital Signs Temp Pulse Resp BP Pulse Ox 02/15/20 00:43 96.6 F L 71 16 129/70 99 02/15/20 00:28 96.6 F L 71 16 129/70 99 - My Orders Last 24 Hours: My Active Orders 02/15/20 00:58 UA W/MICROSCOPIC [URIN] Urgent Sodium Chloride 0.9% [Saline Flush] 10 ml FLUSH ASDIRECTED PRN Peripheral IV Insertion Adult [OM.PC] Urgent 02/15/20 00:59 Peripheral IV Care [RC] . DIRECTED 02/15/20 01:00 Lactated Ringers [Ringers, Lactated] 1,000 ml IV ASDIRECTED - Assessment/Plan Last 24 Hours: My Active Orders 02/15/20 00:58 UA W/MICROSCOPIC [URIN] Urgent Sodium Chloride 0.9% [Saline Flush] 10 ml FLUSH ASDIRECTED PRN Peripheral IV Insertion Adult [OM.PC] Urgent 02/15/20 00:59 Peripheral IV Care [RC] . DIRECTED 02/15/20 01:00 Lactated Ringers [Ringers, Lactated] 1,000 ml IV ASDIRECTED Plan: Assessment Acuity = acute Site and laterality = small bowel obstruction complicated the patient known history of gastric bypass Etiology = unknown Manifestations = abdominal pain Location of injury = Home Lab values = CBC, CMP unremarkable lactic acid was normal troponin was negative CT scan describes possible small bowel obstruction Plan Call discussed case Dr. Metz at 245 he kindly agreed to come evaluate her in the hospital for admission This note was dictated using [email or web address] voice recognition software please call with any questions on syntax or grammar.
[2020-02-15] MEDS ORDERED: Iopamidol 612 MG/ML 100 ML Bottle IV STA (01:39)
--- NOTE | 2020-02-15 02:40 | CRLCT ---
INDICATION: Abdominal pain, history of Andreia-en-Y TECHNIQUE: CT abdomen and pelvis acquired with IV contrast. 100 cc Isovue-300 COMPARISON: 02/04/2020 FINDINGS: Lower chest: Unremarkable. Liver: Unremarkable. Spleen: Unremarkable. Pancreas: Unremarkable. Gallbladder and bile ducts: Cholecystectomy. Intra and extra biliary ductal dilatation most likely related to reservoir effect. Kidneys: Unremarkable. Adrenal glands: Unremarkable. GI tract: Status post gastric bypass distended. Fluid-filled and minimally thickened small bowel loops with swirling of the mesentery involving the left mid abdomen and adjacent mesenteric edema. Small-bowel obstruction possibly secondary to twisting of the mesentery cannot be excluded. This was not present on 02/04/2020. Vascular structures: Unremarkable. Lymph nodes: Unremarkable. Miscellaneous: Unremarkable. No free air or significant free fluid. Pelvic Organs: Unremarkable. Bones: Right hip arthroplasty. IMPRESSION: Fluid filled and minimally thickened small bowel loops with swirling of the mesentery involving the left mid abdomen and adjacent mesenteric edema appears small-bowel obstruction possibly secondary to twisting and mesenteric cannot be excluded. This was not present on 02/04/2020. Dictated by Vik Baca MD @ 02/15/2020 2:39:20 AM Please note that all CT scans at this facility use dose modulation, iterative reconstruction, and/or weight-based dosing when appropriate to reduce radiation dose to as low as reasonably achievable. Dictated by: Vik Baca MD @ 02/15/2020 02:39:31 (Electronically Signed)
[2020-02-15] MEDS ORDERED: diphenhydrAMINE 50 MG/ML SDV IVPUSH PRN ×3 (02:50→17:00)
[2020-02-15] MEDS ORDERED: Ondansetron 4 MG/2 ML SDV IVPUSH PRN ×3 (02:50→17:00)
[2020-02-15] MEDS ORDERED: diphenhydrAMINE 25 MG Cap PO PRN ×2 (02:50→03:25)
[2020-02-15] MEDS ORDERED: Naloxone 0.4 MG/ML SDV IVPUSH PRN ×2 (02:50→03:25)
[2020-02-15] MEDS ORDERED: fentaNYL/Normal Saline 600 MCG/30 ML PCA Vial IV SCH (03:00)
[2020-02-15] MEDS ORDERED: HYDROmorphone/Normal Saline 15 MG/30 ML PCA IV SCH (03:30)
[2020-02-15] MEDS ORDERED: Non-Formulary Medication 1 Each IV ONE ×2 (07:47)
[2020-02-15] MEDS ORDERED: Ketamine 500 MG/5 ML MDV IV SCH ×3 (08:00→12:00)
[2020-02-15] MEDS: Furosemide 40 MG Tab PO SCH (08:40)
[2020-02-15] MEDS ORDERED: fentaNYL 250 MCG/5 ML SDV ONE (08:53)
[2020-02-15] MEDS ORDERED: Glycopyrrolate 0.2 MG/ML 5 ML MDV ONE (08:53)
[2020-02-15] MEDS ORDERED: Propofol 200 MG/20 ML SDV ONE (08:53)
[2020-02-15] MEDS ORDERED: Succinylcholine 200 MG/10 ML MDV ONE (08:53)
[2020-02-15] MEDS ORDERED: Rocuronium 50 MG/5 ML Vial ONE (08:53)
[2020-02-15] MEDS ORDERED: Dexamethasone 4 MG/ML SDV ONE (08:53)
[2020-02-15] MEDS ORDERED: Ondansetron 4 MG/2 ML SDV ONE (08:53)
[2020-02-15] MEDS ORDERED: Neostigmine Methylsulfate 1 MG/ML 5 ML Syringe ONE (08:53)
[2020-02-15] MEDS ORDERED: Diphtheria,Pertussis(Acell),Tetanus Vaccine 0.5 ML SDV IM ONE (10:00)
--- NOTE | 2020-02-15 11:46 | PN ---
DATE OF SERVICE: 02/15/2020 SUBJECTIVE: Alea is n.p.o. She has a partial small bowel obstruction. History and physical and CT scan were reviewed. REVIEW OF SYSTEMS: Otherwise negative for any pertinent positives and negatives. OBJECTIVE: GENERAL: Alea Contreras is a pleasant 59-year-old female. She is alert and oriented. Pain is controlled with ESTHETIC DERMATOLOGIST. VITAL SIGNS: TPR at 0711 is 95.8, 77, 16, blood pressure 100/57. HEENT: Negative. NECK: Supple. HEART: Regular rate and rhythm. LUNGS: Clear. ABDOMEN: Generalized tenderness is noted with most of the tenderness in the left mid abdominal quadrant. EXTREMITIES: Without peripheral edema. SKIN: Has some bruising on her right arm and some scarring and bite burgos. States she recently was treated for bedbugs again. Generalized pruritus. NEURO: Intact. PSYCHIATRIC: Mood and affect appropriate. ASSESSMENT: Partial small bowel obstruction. PLAN: Schedule and have consent signed for exploratory laparotomy with release of partial small bowel obstruction with possible small bowel resection and lysis of adhesions. General anesthesia. Case to follow. Froilan Metz MD. TAP block, ketamine bolus and drip, magnesium bolus and drip ordered. To check ferritin on the blood that was already drawn yesterday in ER. We will evaluate p.r.n. Orders will be written postoperatively. Yasmin Osman PA-C /[id number]
[2020-02-15] MEDS ORDERED: Ropivacaine 40 ML, dexAMETHasone 8 MG, EPINEPHrine 0.4 MG, Sodium Chloride 0.9% 37.6 ML NERVRT SCH ×4 (12:00)
[2020-02-15] MEDS ORDERED: Magnesium Sulfate 2.5 GM in Sodium Chloride 0.9% 100 ML IV SCH (12:00)
[2020-02-15] MEDS ORDERED: Ketamine 50 MG in Sodium Chloride 0.9% 49.5 ML IV SCH (12:00)
[2020-02-15] MEDS ORDERED: Meropenem 500 MG in Sodium Chloride 0.9% 50 ML IV ONE (12:00)
[2020-02-15] MEDS ORDERED: Lactated Ringers 1,000 ML ONE (13:00)
[2020-02-15] MEDS ORDERED: Meropenem 500 MG SDV ONE (13:15)
[2020-02-15] MEDS ORDERED: Sodium Chloride 0.9% 10 ML ONE (13:15)
[2020-02-15] MEDS: Lidocaine 1% with EPINEPHrine 1:100,000 50 ML MDV ONE ×2 (13:26→13:45)
[2020-02-15] MEDS: Bupivacaine 0.5% 50 ML MDV ONE ×2 (13:26→13:45)
[2020-02-15] MEDS ORDERED: Cyclobenzaprine 10 MG Tab PO PRN (16:03)
[2020-02-15] MEDS ORDERED: Metoclopramide 10 MG/2 ML SDV IVPUSH PRN (17:00)
[2020-02-15] MEDS ORDERED: Acetaminophen 500 MG Tab PO PRN (17:00)
[2020-02-15] MEDS ORDERED: MVI, Adult with Vitamin K 10 ML, Thiamine 200 MG, Chromium/Copper/Mang/Selen/Zn 1 ML in... IV SCH ×4 (17:00)
[2020-02-15] MEDS ORDERED: hydrOXYzine HCL 100 MG/2 ML SDV IM PRN (17:00)
[2020-02-15] MEDS ORDERED: Labetalol 20 MG/4 ML Syringe IVPUSH PRN (17:00)
[2020-02-15] MEDS ORDERED: Calcium Gluconate 10% 1 GM/10 ML SDV IVPUSH PRN (17:00)
[2020-02-15] MEDS: Heparin Sodium 5,000 Units/ML Vial SUBCUT SCH (19:52)
[2020-02-15] MEDS: cefOXitin 2 GM in Sodium Chloride 0.9% 50 ML IV SCH (19:52)
[2020-02-15] MEDS ORDERED: Pantoprazole 40 MG Vial IVPUSH SCH (20:00)
[2020-02-15] MEDS: Latanoprost 0.005% Ophth Soln 2.5 ML Bottle EYEBOTH SCH (20:01)
[2020-02-15] MEDS ORDERED: Latanoprost 0.005% Ophth Soln 2.5 ML Bottle EYEBOTH SCH (21:00)
[2020-02-15] MEDS: Acetaminophen 500 MG Tab PO SCH (21:41)
[2020-02-15] MEDS: Dextrose 5%-Lactated Ringers 1,000 ML IV SCH (23:20)
[2020-02-16] MEDS: cefOXitin 2 GM in Sodium Chloride 0.9% 50 ML IV SCH ×4 (01:53→20:29)
[2020-02-16] MEDS ORDERED: Iopamidol 612 MG/ML 100 ML Bottle PRN (02:43)
[2020-02-16] MEDS: Dextrose 5%-Lactated Ringers 1,000 ML IV SCH (05:36)
[2020-02-16] MEDS: Acetaminophen 500 MG Tab PO SCH ×3 (05:52→22:26)
[2020-02-16] MEDS ORDERED: Dextrose 5%-Lactated Ringers 1,000 ML IV SCH (08:15)
[2020-02-16] MEDS: Heparin Sodium 5,000 Units/ML Vial SUBCUT SCH ×2 (08:32→19:12)
[2020-02-16] MEDS: Furosemide 40 MG Tab PO SCH (08:33)
[2020-02-16] MEDS: Celecoxib 200 MG Cap PO SCH ×2 (08:33→20:18)
[2020-02-16] MEDS: Bisacodyl 5 MG Tab PO SCH ×2 (09:50→20:19)
[2020-02-16] MEDS: Docusate Sodium 100 MG Cap PO SCH ×2 (09:50→20:19)
[2020-02-16] MEDS: Potassium Phos in 0.9 % NaCl 15 MMOL in Premix Bag 1 BAG IV SCH ×6 (09:51→17:13)
[2020-02-16] MEDS: oxyCODONE 5 MG Tab PO PRN ×2 (13:20→19:17)
--- NOTE | 2020-02-16 15:09 | PN ---
DATE OF SERVICE: 02/16/2020 The patient has been afebrile with stable vital signs. The pain control is fairly good and we will switch her over to oral oxycodone today. Otherwise, restart her pertinent oral medications as well as medications. The phosphate is somewhat low. We will give her some K-Phos today and otherwise maximize activity and work with pulmonary toilet. We will begin some bowel stimulation today. Froilan Metz MD /[id number]
[2020-02-16] MEDS: [UNRECOGNIZED DRUG - SUPPLY] TOP SCH (15:27)
[2020-02-16] MEDS ORDERED: MVI, Adult with Vitamin K 10 ML, Thiamine 200 MG, Chromium/Copper/Mang/Selen/Zn 1 ML in... IV SCH ×4 (16:00)
[2020-02-16] MEDS ORDERED: Pantoprazole 40 MG Delayed-Release Granules 1 Packet PO SCH (20:00)
[2020-02-16] MEDS: Latanoprost 0.005% Ophth Soln 2.5 ML Bottle EYEBOTH SCH (20:19)
[2020-02-17] MEDS: cefOXitin 2 GM in Sodium Chloride 0.9% 50 ML IV SCH ×2 (02:50→07:18)
[2020-02-17] MEDS: Acetaminophen 500 MG Tab PO SCH (05:54)
[2020-02-17 07:17] VITALS: BP 126/59; PULSE 70
[2020-02-17] MEDS: Heparin Sodium 5,000 Units/ML Vial SUBCUT SCH (07:19)
[2020-02-17] MEDS: Bisacodyl 5 MG Tab PO SCH (08:01)
[2020-02-17] MEDS: Docusate Sodium 100 MG Cap PO SCH (08:01)
[2020-02-17] MEDS: Furosemide 40 MG Tab PO SCH (08:01)
[2020-02-17] MEDS: Celecoxib 200 MG Cap PO SCH (08:01)
[2020-02-17] MEDS: [UNRECOGNIZED DRUG - SUPPLY] TOP SCH (08:01)
[2020-02-17] MEDS ORDERED: Cyanocobalamin (Vitamin B12) 1,000 MCG/ML SDV IM ONE (09:00)
--- NOTE | 2020-02-18 09:14 | CR ---
UGI Limited HISTORY: Postbariatric surgery FINDINGS: Patient swallowed water-soluble contrast. Upright views of the abdomen show no evidence of extravasation or obstruction. IMPRESSION: Status post bariatric surgery No extravasation or obstruction seen
--- NOTE | 2020-02-19 14:49 | OR ---
DATE OF PROCEDURE: 02/15/2020 SURGEON: Froilan Metz MD PREOPERATIVE DIAGNOSIS: Partial small bowel obstruction associated with small bowel volvulus. POSTOPERATIVE DIAGNOSES: 1. Partial small bowel obstruction associated with small bowel volvulus. 2. Chronic dilation and lymphocele formation of portion of jejunojejunostomy. 3. Extensive intraabdominal adhesions. 4. Elongated, fleshy peritoneal nodule over small bowel mesentery (16 cm in total length). OPERATIVE PROCEDURE: Exploratory laparotomy with lysis of adhesions: 1. Reduction of small bowel volvulus and closure of internal hernia (92705). 2. Revision of jejunojejunostomy component of Jeff-en-Y gastric bypass (90599). 3. Excision of elongated peritoneal nodule over small bowel mesentery (70523). 4. Placement of Interceed mesh to limit adhesion formation between pelvic and abdominal garza and underlying viscera (55782). ANESTHESIA: General. PREMIX OPERATOR CONCENTRATE: Yasmin Osman PA-C INDICATIONS FOR PROCEDURE: This is a 59-year-old status post Jeff-en-Y gastric bypass presenting with a picture of small bowel volvulus clinically and radiologically. The patient has quite a bit in the way of extensive mesh repair to abdominal wall. Plan will be to proceed with an exploratory laparotomy, correction of volvulus, bowel resection as indicated, and other procedures based on intraoperative findings as felt indicated. We will use some judgment on whether or not some or all of the intraperitoneal mesh needs to be removed versus being left in place knowing there might be some chance of this getting infected, but on other hand its removal would almost certainly put the patient in need for subsequent hernia repairs. Potential risks otherwise including bleeding, infection, injury to underlying viscera, leaks from various GI tract closures, problems with bowel obstruction recurring as well as possibility of cardiopulmonary, septic, or hemorrhagic complications leading to were discussed, and the patient wishes to proceed. DETAILS OF PROCEDURE: The patient was taken to the operating room, where after general endotracheal anesthesia was induced, a Armstrong catheter was inserted and the abdomen prepped and draped. A midline incision from the umbilicus upward toward the xiphoid was made and carried down through the full-thickness abdominal wall. At the upper most area of the incision, the mesh was still present. The mesh was then opened in the midline and carefully dissected away from the underlying viscera. More inferior to the area of concern, there was some small bowel adherent to the mesh, but this was left in place. As further dissection resumed, the area of the small bowel volvulus could be freed up. This was a rotation of the jejunojejunostomy associated limbs through the mesenteric defect underlying the jejunojejunostomy. This was eventually reduced and mesenteric defect closed. Resection of the jeff limb showed marked dilation and lymphocele formation in the stump of the jejunojejunostomy where the Jeff limb entered that anastomosis. This was felt to need to be resected. Upon its resection with SHARLA stapler, the patient was noted at that point to have some narrowing of the jejunojejunostomy and revision of this was then completed with creation of 2 openings in the remaining components of the jejunojejunostomy. This allowed placement of a SHARLA stapler into the area to lengthen the anastomosis. Common opening was then closed transversely with the SHARLA stapler and the angles of anastomosis were reinforced with some 3-0 Vicryl stitch. The underlying mesenteric defect was then closed with a 2-0 silk stitch. During the course of the dissection, there was somewhat strange elongated white fleshy band of tissues present over the small bowel mesentery. This was excised and measured a total length of 16 cm and this was sent for histologic evaluation. At this point, the mesh had been walled off with meropenem containing sponges, and all of the instruments used for the bowel resection were discarded and new gloves and new gowns obtained, and after removal of the sponges along with mesh, that area was once again irrigated with meropenem-containing saline solution as well. Interceed mesh was then placed underneath the existing mesh and down toward the pelvis to limit recurrent adhesion formation. The mesh itself was then reapproximated with a running #1 Prolene stitch with the fascia overlying this being closed with a #2 Vicryl stitch. Bilateral transversus abdominis plane blocks at that point had been placed and the fascial incision was anesthetized with 1% lidocaine mixed with Marcaine. The incision was then closed with 2 layers of 3-0 and 4-0 Vicryl stitch in the subcutaneous tissue planes and raquel for the skin. Dressing was applied. The patient was taken to the recovery room in satisfactory condition. There were no evident complications. Physician junior assistant manager, Yasmin Osman, played an essential role in assisting in this case, helping to position the patient, retract structures as needed, as well as suturing and cutting sutures when indicated. Her presence improved patient safety and decreased the operative time. Froilan Metz MD /[id number]
--- NOTE | 2020-02-19 14:58 | DISCH ---
FINAL DIAGNOSES: 1. Partial small bowel obstruction associated with small bowel volvulus. 2. Chronic dilation and lymphocele formation, portion of jejunojejunostomy. 3. Extensive intraabdominal adhesions. 4. Status post gastric bypass. 5. History of asthma and chronic obstructive pulmonary disease. 6. History of prediabetes, in remission. 7. History of hypertension. OPERATIVE PROCEDURES: Done on 02/15/2020; exploratory laparotomy with lysis of adhesions and, 1. Reduction of small bowel volvulus and closure of internal hernia. 2. Revision of jejunojejunostomy component of Andreia-en-Y gastric bypass. 3. Placement of Interceed mesh to limit recurrent adhesion formation. HOSPITAL COURSE: This is a 59-year-old female, status post Andreia-en-Y gastric bypass, presenting with a small bowel volvulus. On the date of admission, the patient underwent exploratory laparotomy. We did need to divided some intraperitoneal mesh, but were careful to avoid contamination. This was left in place knowing there was some risk of that becoming secondarily infected. Otherwise, the patient had reduction of volvulus and closure of internal hernia. On reduction of volvulus, the patient was noted to have a distended end of the jejunojejunostomy, which was quite strikingly dilated and involved a lymphocele formation. This was resected which did require some revision of the jejunojejunostomy with additional internal firing of the SHARLA stapler to create a satisfactory lumen. Postoperatively, the patient has done well. She will be switched over to oral pain medication. She has been moving her bowels. She will be discharged home with her usual medications plus oxycodone 5 mg q.6 hours p.r.n. and Tylenol 1 g q.i.d. p.r.n. FOLLOWUP: With Yasmin Osman will be on 02/25/2020.
== END 2020-02-17 09:20 | disposition home or self-care (01) | DRG 390 ==
LOC: JP.ED 00:10 → JP.MS 02:49
PROVIDERS: ADMIT Surgery; ATTEND Surgery
DX: K56.609 Unspecified intestinal obstruction, unspecified as to partial versus complete obstruction (principal); Z98.84 Bariatric surgery status; K56.600 Partial intestinal obstruction, unspecified as to cause; H91.90 Unspecified hearing loss, unspecified ear; H35.30 Unspecified macular degeneration; Z86.711 Personal history of pulmonary embolism; H40.9 Unspecified glaucoma; H91.91 Unspecified hearing loss, right ear; H54.62 Unqualified visual loss, left eye, normal vision right eye; J43.9 Emphysema, unspecified; K44.9 Diaphragmatic hernia without obstruction or gangrene; N93.8 Other specified abnormal uterine and vaginal bleeding; E61.1 Iron deficiency; M19.90 Unspecified osteoarthritis, unspecified site; M81.0 Age-related osteoporosis without current pathological fracture; M51.36 Other intervertebral disc degeneration, lumbar region; E66.9 Obesity, unspecified; E53.8 Deficiency of other specified B group vitamins; D50.9 Iron deficiency anemia, unspecified; I87.8 Other specified disorders of veins; Z88.8 Allergy status to other drugs, medicaments and biological substances; Z88.1 Allergy status to other antibiotic agents; Z91.048 Other nonmedicinal substance allergy status; Z79.899 Other long term (current) drug therapy; Z90.710 Acquired absence of both cervix and uterus; Z68.36 Body mass index [BMI] 36.0-36.9, adult; Z20.828 Contact with and (suspected) exposure to other viral communicable diseases
CPT/HCPCS: 36415; 74177; 74240; 74240-26; 80053; 81001; 82728; 83605; 83690; 83735; 83880; 84100; 84484; 85025; 90715; 94762; 96374; 99285-25; A9270-GY; C9113; J0171; J0330; J0694; J1100; J1170; J1200; J1644; J2185; J2405; J2704; J2710; J2795; J3010; J3411; J3420; J3475; J3490; J7050; J7120; J7121; Q9967; U0002

== ENCOUNTER 2020-03-07 15:04 | Inpatient (IN) | payer MEDICARE, MEDICAID ==
[2020-03-07] MEDS ORDERED: Ondansetron 4 MG/2 ML SDV IVPUSH ONE (15:36)
[2020-03-07] MEDS ORDERED: HYDROmorphone 0.5 MG/0.5 ML Syringe IVPUSH ONE ×2 (15:36→17:05)
[2020-03-07] MEDS ORDERED: Sodium Chloride 0.9% 10 ML Syringe FLUSH PRN ×2 (15:36→18:38)
--- NOTE | 2020-03-07 15:44 | EDM.PDOC ---
ED HPI GENERAL MEDICAL PROBLEM - General Chief Complaint: Abdominal Pain Stated Complaint: ABD PAIN Time Seen by Provider: 03/07/20 15:18 Source of Information: Reports: Patient, RN Notes Reviewed History Limitations: Reports: No Limitations - History of Present Illness INITIAL COMMENTS - FREE TEXT/NARRATIVE: Alea presents today with complaints of abdominal pain and bloating that started at 1300 today. She went to the urgent care clinic and was brought to the emergency room for evaluation. Alea states her pain is 8-9/10 to her whole abdomen. She reports the pain as c onstant. She has not tried anything at home for her symptoms. Alea states she had three soft BMs today, is urinating well, has belched. She denies any injuries or trauma. History of bariatric surgery and bowel obstruction. Abdomen Pain Score (Numeric/FACES): 10 - Related Data Allergies Allergy/AdvReac Type Severity Reaction Status Date / Time dog dander Allergy Intermediate Difficulty Verified 03/07/20 15:10 Breathing adhesive tape Allergy Rash Verified 03/07/20 15:10 albuterol Allergy Rash Verified 03/07/20 15:10 cephalexin [From Keflex] Allergy Rash Verified 03/07/20 15:10 cat dander AdvReac Sneezing Verified 03/07/20 15:10 bandaid Allergy Rash Uncoded 03/07/20 15:10 Home Meds: Home Meds Cyanocobalamin (Vitamin B-12) [Cyanocobalamin Injection] 1,000 mcg IJ .MONTHLY 02/06/17 [History] Vitamin B Complex [B Complex] 1 cap PO DAILY 02/06/17 [History] Eye Patch [Opticlude] 1 patch TOP DAILY 10/04/17 [History] diphenhydrAMINE [Benadryl] 25 mg PO Q6H PRN 10/04/17 [History] Furosemide [Lasix] 40 mg PO DAILY 07/29/18 [History] Triamcinolone Acetonide [Kenalog 0.1% Crm] 1 applic TOP BID PRN 10/06/18 [History] Latanoprost/Pf [Latanoprost 0.005% Eye Drop] 1 drop EYEBOTH BEDTIME 12/06/19 [History] Fluticasone/Umeclidin/Vilanter [Trelegy Ellipta 100-62.5-25] 1 puff INH DAILY 02/04/20 [History] Calcium Carbonate [Calcium] 500 mg PO BID 02/15/20 [History] Cholecalciferol (Vitamin D3) [Vitamin D3] 2,000 unit PO DAILY 03/07/20 [History] Iron 18 mg PO DAILY 03/07/20 [History] Zinc 50 mg PO DAILY 03/07/20 [History] Past Medical History HEENT History: Reports: Cataract, Glaucoma, Hard of Hearing, Impaired Vision, Ma cular Degeneration Other HEENT History: Blind in left eye, deaf in right ear Respiratory History: Reports: Asthma, COPD, PE, Other (See Below) Other Respiratory History: emphysema Gastrointestinal History: Reports: Bowel Obstruction, Cholelithiasis, Hiatal Hernia, Other (See Below) Other Gastrointestinal History: abdominal inc hernia 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: Dysfunctional Uterine Bleeding, Musculoskeletal History: Reports: Arthritis, Other (See Below), Osteoporosis, Osteoarthritis Other Musculoskeletal History: degenrative disc lower back Neurological History: Reports: Concussion Endocrine/Metabolic History: Reports: Obesity/BMI 30+, Other (See Below) Other Endocrine/Metabolic History: Borderline Diabetic Hematologic History: Reports: B12 Deficiency, Blood Transfusion(s), Iron Deficiency Dermatologic History: Reports: Venous Stasis Dermatitis - Infectious Disease History Infectious Disease History: Reports: Chicken Pox, Measles, Mumps, Rubella - Past Surgical History Head Surgeries/Procedures: Reports: None GI Surgical History: Reports: Appendectomy, Cholecystectomy, Hernia, Abdominal, Hernia Repair/Other Musculoskeletal Surgical History: Reports: Hip Replacement, Knee Replacement, Shoulder Surgery Social & Family History - Family History Family Medical History: Noncontributory Respiratory: Reports: Interstitial Lung Disease Endocrine/Metabolic: Reports: Diabetes, type II Oncologic: Reports: Breast - Tobacco Use Smoking Status *Q: Never Smoker Second Hand Smoke Exposure: No - Caffeine Use Caffeine Use: Reports: Coffee Other Caffeine Use: 2 cups per day Caffeine Use Comment: 4 cups per day - Recreational Drug Use Recreational Drug Use: No ED ROS GENERAL - Review of Systems Review Of Systems: See Below Constitutional: Denies: Fever, Chills, Malaise, Weakness, Diaphoresis HEENT: Reports: No Symptoms Respiratory: Reports: No Symptoms Cardiovascular: Reports: No Symptoms Endocrine: Reports: No Symptoms GI/Abdominal: Reports: Abdominal Pain, Distension, Flatus. Denies: Black Stool, Bloody Stool, Constipation, Diarrhea, Difficulty Swallowing, Hematemesis, Hematochezia, Nausea, Vomiting : Reports: No Symptoms Musculoskeletal: Reports: No Symptoms Skin: Reports: No Symptoms Neurological: Reports: No Symptoms Psychiatric: Reports: No Symptoms Hematologic/Lymphatic: Reports: No Symptoms Immunologic: Reports: No Symptoms ED EXAM, GI/ABD - Physical Exam Exam: See Below Exam Limited By: No Limitations General Appearance: Alert, WD/WN, Mild Distress Eyes: Bilateral: Normal Appearance, EOMI Ears: Normal External Exam, Normal Canal, Hearing Grossly Normal, Normal TMs Nose: Normal Inspection, Normal Mucosa, No Blood Throat/Mouth: Normal Inspection, Normal Lips, Normal Gums, Normal Oropharynx, Normal Voice, No Airway Compromise Head: Atraumatic, Normocephalic Neck: Normal Inspection, Supple, Non-Tender, Full Range of Motion. No: Lymphadenopathy (R), Lymphadenopathy (L) Respiratory/Chest: No Respiratory Distress, Lungs Clear, Normal Breath Sounds, No Accessory Muscle Use, Chest Non-Tender Cardiovascular: Normal Peripheral Pulses, Regular Rate, Rhythm, No Edema, No Gallop, No JVD, No Murmur, No Rub GI/Abdominal Exam: Distended, Guarding, Tender, Abnormal Bowel Sounds (hyperactive), Other (firm to palpation to abdomen) Back Exam: Normal Inspection, Decreased Range of Motion (due to abdominal pain). No: CVA Tenderness (R), CVA Tenderness (L) Extremities: Normal Inspection, Normal Range of Motion, Non-Tender, Normal Capillary Refill, Other (trace pedal edama) Neurological: Alert, Oriented, Normal Cognition, No Motor/Sensory Deficits Psychiatric: Normal Affect, Normal Mood Skin Exam: Warm, Dry, Intact, No Rash, Pallor Lymphatic: No Adenopathy Course - Vital Signs Last Recorded V/S: Last Vital Signs Temp 35.8 C L 03/07/20 15:09 Pulse 90 03/07/20 15:09 Resp 16 03/07/20 15:09 BP 121/67 03/07/20 15:09 Pulse Ox 97 03/07/20 15:09 - Orders/Labs/Meds Orders: Active Orders 24 hr Category Date Time Status Iopamidol [Isovue-300 (61%)] Med 03/07/20 16:15 Active 100 ml IV . DIRECTED Sodium Chloride 0.9% [Normal Saline] 1,000 ml Med 03/07/20 15:45 Active IV ASDIRECTED Sodium Chloride 0.9% [Normal Saline] 100 ml Med 03/07/20 16:15 Active IV ASDIRECTED Sodium Chloride 0.9% [Saline Flush] Med 03/07/20 15:36 Active 10 ml FLUSH ASDIRECTED PRN Saline Lock Insert [OM.PC] Routine Oth 03/07/20 15:36 Ordered Medication Orders Sodium Chloride (Normal Saline) 1,000 mls @ 250 mls/hr IV ASDIRECTED NAHEED Last Admin: 03/07/20 15:52 Dose: 250 mls/hr Documented by: [facility] Sodium Chloride (Normal Saline) 100 mls @ 3 mls/sec IV ASDIRECTED NAHEED Last Admin: 03/07/20 16:28 Dose: 3 mls/sec Documented by: YANIV Iopamidol (Isovue-300 (61%)) 100 ml IV . DIRECTED NAHEED Last Admin: 03/07/20 16:28 Dose: 100 ml Documented by: YANIV Sodium Chloride (Saline Flush) 10 ml FLUSH ASDIRECTED PRN PRN Reason: Keep Vein Open Last Admin: 03/07/20 15:51 Dose: 10 ml Documented by: [facility] Labs: Laboratory Tests 03/07/20 03/07/20 03/07/20 Range/Units 15:33 15:33 15:33 WBC 6.2 (4.5-11.0) K/uL RBC 4.44 (3.30-5.50) M/uL Hgb 12.2 (12.0-15.0) g/dL Hct 39.7 (36.0-48.0) % MCV 89 (80-98) fL MCH 28 (27-31) pg MCHC 31 L (32-36) % Plt Count 430 H (150-400) K/uL Neut % (Auto) 61 (36-66) % Lymph % (Auto) 18 L (24-44) % [place] % (Auto) 11 H (2-6) % Eos % (Auto) 9 H (2-4) % Baso % (Auto) 1 (0-1) % Sodium 141 (140-148) mmol/L Potassium 3.7 (3.6-5.2) mmol/L Chloride 106 (100-108) mmol/L Carbon Dioxide 20 L (21-32) mmol/L Anion Gap 18.7 H (5.0-14.0) mmol/L BUN 26 H D (7-18) mg/dL Creatinine 1.0 (0.6-1.0) mg/dL Est Cr Clr Drug Dosing 46.72 mL/min Estimated GFR (MDRD) 56 L (>60) Glucose 81 (74-106) mg/dL Lactic Acid 2.4 H (0.4-2.0) mmol/L Calcium 8.9 (8.5-10.1) mg/dL Total Bilirubin 0.4 (0.2-1.0) mg/dL AST 27 (15-37) U/L ALT 20 (12-78) U/L Alkaline Phosphatase 98 (46-116) U/L C-Reactive Protein 0.08 (0.0-0.3) mg/dL Total Protein 7.6 (6.4-8.2) g/dL Albumin 4.3 (3.4-5.0) g/dL Globulin 3.3 (2.3-3.5) g/dL Albumin/Globulin Ratio 1.3 (1.2-2.2) Procalcitonin ng/mL 03/07/20 Range/Units 15:36 WBC (4.5-11.0) K/uL RBC (3.30-5.50) M/uL Hgb (12.0-15.0) g/dL Hct (36.0-48.0) % MCV (80-98) fL MCH (27-31) pg MCHC (32-36) % Plt Count (150-400) K/uL Neut % (Auto) (36-66) % Lymph % (Auto) (24-44) % [place] % (Auto) (2-6) % Eos % (Auto) (2-4) % Baso % (Auto) (0-1) % Sodium (140-148) mmol/L Potassium (3.6-5.2) mmol/L Chloride (100-108) mmol/L Carbon Dioxide (21-32) mmol/L Anion Gap (5.0-14.0) mmol/L BUN (7-18) mg/dL Creatinine (0.6-1.0) mg/dL Est Cr Clr Drug Dosing mL/min Estimated GFR (MDRD) (>60) Glucose (74-106) mg/dL Lactic Acid (0.4-2.0) mmol/L Calcium (8.5-10.1) mg/dL Total Bilirubin (0.2-1.0) mg/dL AST (15-37) U/L ALT (12-78) U/L Alkaline Phosphatase (46-116) U/L C-Reactive Protein (0.0-0.3) mg/dL Total Protein (6.4-8.2) g/dL Albumin (3.4-5.0) g/dL Globulin (2.3-3.5) g/dL Albumin/Globulin Ratio (1.2-2.2) Procalcitonin < 0.05 ng/mL Patient lab work reviewed, Abdomen/pelvis CT with IV contrast ordered. Meds: Medications Generic Name Dose Route Start Last Admin Trade Name Freq PRN Reason Stop Dose Admin Sodium Chloride 1,000 mls @ 250 mls/hr 03/07/20 15:45 03/07/20 15:52 Normal Saline IV 250 mls/hr ASDIRECTED NAHEED Administration Sodium Chloride 100 mls @ 3 mls/sec 03/07/20 16:15 03/07/20 16:28 Normal Saline IV 3 mls/sec ASDIRECTED NAHEED Administration Iopamidol 100 ml 03/07/20 16:15 03/07/20 16:28 Isovue-300 (61%) IV 100 ml . DIRECTED NAHEED Administration Sodium Chloride 10 ml 03/07/20 15:36 03/07/20 15:51 Saline Flush FLUSH 10 ml ASDIRECTED PRN Administration Keep Vein Open Discontinued Medications Generic Name Dose Route Start Last Admin Trade Name Freq PRN Reason Stop Dose Admin Hydromorphone HCl 0.5 mg 03/07/20 15:36 03/07/20 15:42 Dilaudid IVPUSH 03/07/20 15:37 0.5 mg ONETIME ONE Administration Hydromorphone HCl 0.5 mg 03/07/20 17:05 03/07/20 17:08 Dilaudid IVPUSH 03/07/20 17:06 0.5 mg ONETIME ONE Administration Ondansetron HCl 4 mg 03/07/20 15:36 03/07/20 15:42 Zofran IVPUSH 03/07/20 15:37 4 mg ONETIME ONE Administration Sodium Chloride 10 ml 03/07/20 16:09 03/07/20 16:28 Saline Flush FLUSH 03/07/20 16:10 10 ml ONETIME ONE Administration - Radiology Interpretation Free Text/Narrative:: CT abdomen and pelvis with IV contrast completed shows small bowel obstruction, distal. Significant intra and extrahepatic biliary ductal dilation. There is narrowing of the distal duct but I see no calculus or periampullary neoplasm. Evaluation with MRCP or ERCP as appropriate. Lab work and CT findings reviewed with Alea, all her questions were answered. She is in agreement with plan. Dr. Metz notified of findings, he would like patient to be admitted per hospitalist for monitoring and hydration. NPO status. Dr. Krause notified, he will come to admit patient. Departure - Departure Time of Disposition: 17:29 Disposition: Admitted As Inpatient 64 Condition: Fair Clinical Impression: Small bowel obstruction, Common bile duct dilatation - Discharge Information *PRESCRIPTION DRUG MONITORING PROGRAM REVIEWED*: Not Applicable *COPY OF PRESCRIPTION DRUG MONITORING REPORT IN PATIENT MOO: Not Applicable Referrals: PCP,None [Primary Care Provider] - Forms: ED Department Discharge Sepsis Event Note (ED) - Evaluation Sepsis Screening Result: No Definite Risk - Focused Exam Vital Signs: Vital Signs Temp Pulse Resp BP Pulse Ox 03/07/20 15:09 35.8 C L 90 16 121/67 97 03/07/20 15:06 35.8 C L 90 16 121/67 97 - My Orders Last 24 Hours: My Active Orders 03/07/20 15:36 Sodium Chloride 0.9% [Saline Flush] 10 ml FLUSH ASDIRECTED PRN Saline Lock Insert [OM.PC] Routine 03/07/20 15:45 Sodium Chloride 0.9% [Normal Saline] 1,000 ml IV ASDIRECTED 03/07/20 16:15 Iopamidol [Isovue-300 (61%)] 100 ml IV . DIRECTED Sodium Chloride 0.9% [Normal Saline] 100 ml IV ASDIRECTED - Assessment/Plan Last 24 Hours: My Active Orders 03/07/20 15:36 Sodium Chloride 0.9% [Saline Flush] 10 ml FLUSH ASDIRECTED PRN Saline Lock Insert [OM.PC] Routine 03/07/20 15:45 Sodium Chloride 0.9% [Normal Saline] 1,000 ml IV ASDIRECTED 03/07/20 16:15 Iopamidol [Isovue-300 (61%)] 100 ml IV . DIRECTED Sodium Chloride 0.9% [Normal Saline] 100 ml IV ASDIRECTED Assessment:: Small bowel obstruction Significant biliary duct dilation - further evaluation needed Plan: Patient will be admitted per Dr. Krause for hydration, monitoring.
[2020-03-07] MEDS ORDERED: Sodium Chloride 0.9% 1,000 ML IV SCH (15:45)
[2020-03-07] MEDS ORDERED: Sodium Chloride 0.9% 10 ML Syringe FLUSH ONE (16:09)
[2020-03-07] MEDS ORDERED: Sodium Chloride 0.9% 100 ML IV SCH (16:15)
[2020-03-07] MEDS ORDERED: Iopamidol 612 MG/ML 100 ML Bottle IV SCH (16:15)
--- NOTE | 2020-03-07 16:55 | CRLCT ---
INDICATION: Abdominal pain and distension COMPARISON: No prior transaxial studies for comparison TECHNIQUE: CT examination of the abdomen and pelvis was performed following the uneventful intravenous administration of 100 cc of Isovue-300. Thin section axial images were obtained from the lung bases through the pubic symphysis. Oral contrast was not administered. Please note that all CT scans at this facility use dose modulation, iterative reconstruction, and/or weight-based dosing when appropriate to reduce radiation dose to as low as reasonably achievable. FINDINGS: LUNG BASES: Atelectasis at the lung bases. Hiatal hernia.The heart size is normal at the lung bases. LIVER/BILIARY SYSTEM:There is significant intra and extrahepatic ductal dilatation to the level of the pancreatic head. There is an area of narrowing at the pancreatic head but I do not see choledocholithiasis or periampullary neoplasm. This could be due to a stricture due to the tapered narrowing. Further evaluation by MRCP or ERCP is advised at a clinically appropriate time.. ADRENALS: Normal KIDNEYS, URETERS and BLADDER:The kidneys appear normal. The bladder is poorly seen due to streak artifact from a right hip arthroplasty SPLEEN:Normal appearance. PANCREAS: Appears normal. RETROPERITONEUM and MESENTERY: There is no mass, adenopathy or aortic aneurysm. Atherosclerotic vascular calcification GASTROINTESTINAL SYSTEM: Postsurgical changes diffusely but mainly in the left upper quadrant probably related to bariatric surgery. Characteristic findings of a small-bowel obstruction. This appears to be a distal small-bowel obstruction though the exact point of obstruction is not visible. There is fecal material within the colon up to the rectum suggesting this is either an early complete or incomplete obstruction PELVIS: Poorly evaluated due to streak artifact related to the right hip. OSSEOUS STRUCTURES and ABDOMINAL WALL: There is an age-appropriate appearance of the osseous structures.Postsurgical changes involving the anterior abdominal wall. OTHER: No free fluid or free air. IMPRESSION: 1. Significant intra and extrahepatic biliary ductal dilatation. There is narrowing of the distal duct but I see no calculus or periampullary neoplasm. This could be a stricture or a nonvisualized neoplasm. Further evaluation is recommended by either MRCP or ERCP as appropriate clinically. 2. Small-bowel obstruction, distal. 3. I discussed the above findings with Tolu Poon at 4:50 p.m. on March 07, [address] that all [address] scans at this facility use dose modulation, iterative reconstruction, and/or weight-based dosing when appropriate to reduce radiation dose to as low as reasonably achievable. Dictated by Froilan Ojeda MD @ Mar 07 2020 4:41PM Signed by Dr. Froilan Ojeda @ Mar 07 2020 4:54PM
--- NOTE | 2020-03-07 18:11 | PCM.HP.2 ---
H&P History of Present Illness - General Date of Service: 03/07/20 Admit Problem/Dx: Admission Diagnosis/Problem Admission Diagnosis/Problem Abdominal pain Source of Information: Patient, Old Records, Provider, RN Notes Reviewed History Limitations: Reports: No Limitations - History of Present Illness Initial Comments - Free Text/Narative: Ms. Contreras is a 59-year-old woman who was admitted through the emergency department with abdominal pain and nausea secondary to a small bowel obstruction. She was admitted to this facility 3 weeks ago for a bowel obstruction secondary to a volvulus. She was taken to the operating room by Dr. Metz and underwent surgical repair. She did well following the surgery until today when she noted onset of abdominal distention associated with pain and some nausea. She presented to the emergency department, CT scan shows evidence of di stal small bowel obstruction. There was also evidence of biliary ductal dilatation with narrowing of the distal duct, further evaluation recommended with MRCP or ERCP. Abdomen Pain Score (Numeric/FACES): 10 - Related Data Allergies/Adverse Reactions: Allergies Allergy/AdvReac Type Severity Reaction Status Date / Time dog dander Allergy Intermediate Difficulty Verified 03/07/20 15:10 Breathing adhesive tape Allergy Rash Verified 03/07/20 15:10 albuterol Allergy Rash Verified 03/07/20 15:10 cephalexin [From Keflex] Allergy Rash Verified 03/07/20 15:10 cat dander AdvReac Sneezing Verified 03/07/20 15:10 bandaid Allergy Rash Uncoded 03/07/20 15:10 Home Medications: Home Meds Cyanocobalamin (Vitamin B-12) [Cyanocobalamin Injection] 1,000 mcg IJ .MONTHLY 02/06/17 [History] Vitamin B Complex [B Complex] 1 cap PO DAILY 02/06/17 [History] Eye Patch [Opticlude] 1 patch TOP DAILY 10/04/17 [History] diphenhydrAMINE [Benadryl] 25 mg PO Q6H PRN 10/04/17 [History] Furosemide [Lasix] 40 mg PO DAILY 07/29/18 [History] Triamcinolone Acetonide [Kenalog 0.1% Crm] 1 applic TOP BID PRN 10/06/18 [History] Latanoprost/Pf [Latanoprost 0.005% Eye Drop] 1 drop EYEBOTH BEDTIME 12/06/19 [History] Fluticasone/Umeclidin/Vilanter [Trelegy Ellipta 100-62.5-25] 1 puff INH DAILY 02/04/20 [History] Calcium Carbonate [Calcium] 500 mg PO BID 02/15/20 [History] Cholecalciferol (Vitamin D3) [Vitamin D3] 2,000 unit PO DAILY 03/07/20 [History] Iron 18 mg PO DAILY 03/07/20 [History] Zinc 50 mg PO DAILY 03/07/20 [History] Past Medical History HEENT History: Reports: Cataract, Glaucoma, Hard of Hearing, Impaired Vision, Macular Degeneration Other HEENT History: Blind in left eye, deaf in right ear Respiratory History: Reports: Asthma, COPD, PE, Other (See Below) Other Respiratory History: emphysema Gastrointestinal History: Reports: Bowel Obstruction, Cholelithiasis, Hiatal Hernia, Other (See Below) Other Gastrointestinal History: abdominal inc hernia 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: Reports: Dysfunctional Uterine Bleeding, Musculoskeletal History: Reports: Arthritis, Other (See Below), Osteoporosis, Osteoarthritis Other Musculoskeletal History: degenrative disc lower back Neurological History: Reports: Concussion Endocrine/Metabolic History: Reports: Obesity/BMI 30+, Other (See Below) Other Endocrine/Metabolic History: Borderline Diabetic Hematologic History: Reports: B12 Deficiency, Blood Transfusion(s), Iron Deficiency Dermatologic History: Reports: Venous Stasis Dermatitis - Infectious Disease History Infectious Disease History: Reports: Chicken Pox, Measles, Mumps, Rubella - Past Surgical History Head Surgeries/Procedures: Reports: None GI Surgical History: Reports: Appendectomy, Cholecystectomy, Hernia, Abdominal, Hernia Repair/Other Musculoskeletal Surgical History: Reports: Hip Replacement, Knee Replacement, Shoulder Surgery Social & Family History - Family History Family Medical History: Noncontributory Respiratory: Reports: Interstitial Lung Disease Endocrine/Metabolic: Reports: Diabetes, type II Oncologic: Reports: Breast - Tobacco Use Smoking Status *Q: Never Smoker Second Hand Smoke Exposure: No - Caffeine Use Caffeine Use: Reports: Coffee Other Caffeine Use: 2 cups per day Caffeine Use Comment: 4 cups per day - Recreational Drug Use Recreational Drug Use: No H&P Review of Systems - Review of Systems: Review Of Systems: See Below General: Reports: No Symptoms HEENT: Reports: No Symptoms Pulmonary: Reports: No Symptoms Cardiovascular: Reports: No Symptoms Gastrointestinal: Reports: Abdominal Pain, Distension, Nausea. Denies: Black Stool, Bloody Stool, Constipation, Diarrhea, Difficulty Swallowing, Vomiting Genitourinary: Reports: No Symptoms Musculoskeletal: Reports: No Symptoms Skin: Reports: No Symptoms Psychiatric: Reports: No Symptoms Neurological: Reports: No Symptoms Hematologic/Lymphatic: Reports: No Symptoms Immunologic: Reports: No Symptoms Exam - Exam Exam: See Below - Vital Signs Vital Signs: Last Vital Signs Temp 96.4 F L 03/07/20 15:09 Pulse 90 03/07/20 15:09 Resp 16 03/07/20 15:09 BP 121/67 03/07/20 15:09 Pulse Ox 97 03/07/20 15:09 Weight: 185 lb - Exam Quality Assessment: DVT Prophylaxis General: Alert, Oriented, Cooperative, Moderate Distress HEENT: Conjunctiva Clear, Hearing Intact, Mucosa Moist & [place], Normal Nasal Septum, Posterior Pharynx Clear, Pupils Equal Neck: Supple, Trachea Midline, +2 Carotid Pulse wo Bruit Lungs: Clear to Auscultation, Normal Respiratory Effort Cardiovascular: Regular Rate, Regular Rhythm, Normal S1, Normal S2. No: Systolic Murmur, Diastolic Murmur GI/Abdominal Exam: Soft, No Organomegaly, Distended, Tender. No: Guarding, Rigid, Rebound Back Exam: Normal Inspection, Full Range of Motion Extremities: Non-Tender, No Pedal Edema Skin: Warm, Dry, Intact Neurological: Cranial Nerves Intact, Strength Equal Bilateral, Normal Speech, Normal Tone, Sensation Intact. No: Focal Deficit Neuro Extensive - Mental Status: Alert, Oriented x3, Normal Mood/Affect, Normal Cognition, Memory Intact - Patient Data Lab Results Last 24 hrs: Laboratory Results - last 24 hr 03/07/20 03/07/20 03/07/20 Range/Units 15:33 15:33 15:33 WBC 6.2 (4.5-11.0) K/uL RBC 4.44 (3.30-5.50) M/uL Hgb 12.2 (12.0-15.0) g/dL Hct 39.7 (36.0-48.0) % MCV 89 (80-98) fL MCH 28 (27-31) pg MCHC 31 L (32-36) % Plt Count 430 H (150-400) K/uL Neut % (Auto) 61 (36-66) % Lymph % (Auto) 18 L (24-44) % [place] % (Auto) 11 H (2-6) % Eos % (Auto) 9 H (2-4) % Baso % (Auto) 1 (0-1) % Sodium 141 (140-148) mmol/L Potassium 3.7 (3.6-5.2) mmol/L Chloride 106 (100-108) mmol/L Carbon Dioxide 20 L (21-32) mmol/L Anion Gap 18.7 H (5.0-14.0) mmol/L BUN 26 H D (7-18) mg/dL Creatinine 1.0 (0.6-1.0) mg/dL Est Cr Clr Drug Dosing 46.72 mL/min Estimated GFR (MDRD) 56 L (>60) Glucose 81 (74-106) mg/dL Lactic Acid 2.4 H (0.4-2.0) mmol/L Calcium 8.9 (8.5-10.1) mg/dL Total Bilirubin 0.4 (0.2-1.0) mg/dL AST 27 (15-37) U/L ALT 20 (12-78) U/L Alkaline Phosphatase 98 (46-116) U/L C-Reactive Protein 0.08 (0.0-0.3) mg/dL Total Protein 7.6 (6.4-8.2) g/dL Albumin 4.3 (3.4-5.0) g/dL Globulin 3.3 (2.3-3.5) g/dL Albumin/Globulin Ratio 1.3 (1.2-2.2) Procalcitonin ng/mL 03/07/20 Range/Units 15:36 WBC (4.5-11.0) K/uL RBC (3.30-5.50) M/uL Hgb (12.0-15.0) g/dL Hct (36.0-48.0) % MCV (80-98) fL MCH (27-31) pg MCHC (32-36) % Plt Count (150-400) K/uL Neut % (Auto) (36-66) % Lymph % (Auto) (24-44) % [place] % (Auto) (2-6) % Eos % (Auto) (2-4) % Baso % (Auto) (0-1) % Sodium (140-148) mmol/L Potassium (3.6-5.2) mmol/L Chloride (100-108) mmol/L Carbon Dioxide (21-32) mmol/L Anion Gap (5.0-14.0) mmol/L BUN (7-18) mg/dL Creatinine (0.6-1.0) mg/dL Est Cr Clr Drug Dosing mL/min Estimated GFR (MDRD) (>60) Glucose (74-106) mg/dL Lactic Acid (0.4-2.0) mmol/L Calcium (8.5-10.1) mg/dL Total Bilirubin (0.2-1.0) mg/dL AST (15-37) U/L ALT (12-78) U/L Alkaline Phosphatase (46-116) U/L C-Reactive Protein (0.0-0.3) mg/dL Total Protein (6.4-8.2) g/dL Albumin (3.4-5.0) g/dL Globulin (2.3-3.5) g/dL Albumin/Globulin Ratio (1.2-2.2) Procalcitonin < 0.05 ng/mL Result Diagrams: 03/07/20 15:33 03/07/20 15:33 Sepsis Event Note - Evaluation Sepsis Screening Result: No Definite Risk - Focused Exam Vital Signs: Vital Signs Temp Pulse Resp BP Pulse Ox 03/07/20 15:09 96.4 F L 90 16 121/67 97 03/07/20 15:06 96.4 F L 90 16 121/67 97 *Q Meaningful Use (ADM) - VTE *Q VTE Pharmacological Contraindications *Q: Patient Scheduled Surgery - VTE Risk Assess *Q Each Risk Factor Represents 1 Point: Obesity ( BMI > 25 kg/m2), Abnormal Pulmonary Function (COPD) Total Score 1 Point Risk Factors: 2 Each Risk Factor Represents 2 Points: Age 60 - 74 Years Total Score 2 Point Risk Factors: 2 Each Risk Factor Represents 3 Points: None Total Score 3 Point Risk Factors: 0 Each Risk Factor Represents 5 Points: None Total Score 5 Point Risk Factors: 0 Venous Thromboembolism Risk Factor Score *Q: 4 Problem List Initiated/Reviewed/Updated: Yes Orders Last 24hrs: Active Orders 24 hr Category Date Time Status Patient Status Manage Transfer [TRANSFER] Routine ADT 03/07/20 18:02 Ordered Iopamidol [Isovue-300 (61%)] Med 03/07/20 16:15 Active 100 ml IV . DIRECTED Sodium Chloride 0.9% [Normal Saline] 1,000 ml Med 03/07/20 15:45 Active IV ASDIRECTED Sodium Chloride 0.9% [Normal Saline] 100 ml Med 03/07/20 16:15 Active IV ASDIRECTED Sodium Chloride 0.9% [Saline Flush] Med 03/07/20 15:36 Active 10 ml FLUSH ASDIRECTED PRN Saline Lock Insert [OM.PC] Routine Oth 03/07/20 15:36 Ordered Resuscitation Status Routine Resus Stat 03/07/20 18:06 Ordered Medication Orders Sodium Chloride (Normal Saline) 1,000 mls @ 250 mls/hr IV ASDIRECTED [facility] Last Admin: 03/07/20 15:52 Dose: 250 mls/hr Documented by: UCHE Sodium Chloride (Normal Saline) 100 mls @ 3 mls/sec IV ASDIRECTED [facility] Last Admin: 03/07/20 16:28 Dose: 3 mls/sec Documented by: FIEMSAR Iopamidol (Isovue-300 (61%)) 100 ml IV . DIRECTED [facility] Last Admin: 03/07/20 16:28 Dose: 100 ml Documented by: ALVINAR Sodium Chloride (Saline Flush) 10 ml FLUSH ASDIRECTED PRN PRN Reason: Keep Vein Open Last Admin: 03/07/20 15:51 Dose: 10 ml Documented by: UCHE Assessment/Plan Comment:: ASSESSMENT AND PLAN DISTAL SMALL BOWEL OBSTRUCTION-status post exploratory laparotomy 3 weeks ago for bowel obstruction. She had done well until today when she noted onset of abdominal distention associated with nausea and abdominal pain. CT scan of the abdomen documents findings consistent with distal small bowel obstruction. -N.p.o. -No NG tube because of gastric bypass status -IV fluids for hydration -Medication for pain and nausea as needed -Follow-up abdominal flatplate and upright x-ray in a.m. -Dr. Metz to assume care in a.m. BILIARY DUCTAL DILATATION-associated with narrowing of the distal common duct -Consider MRCP when available on Tuesday COPD-stable with no evidence of acute exacerbation -Continue outpatient medications MAINTENANCE ISSUES -DVT prophylaxis; SCUDs, hold on anticoagulation -GI prophylaxis; Protonix 40 mg IV daily -Armstrong catheter; not indicated -Nutrition; n.p.o. -Nicotine dependence; not required CODE STATUS-FULL CODE ADMISSION STATUS-patient will be admitted to inpatient status, expect at least a 2 night hospital stay for evaluation and management of problems as outlined above. At the time of this admission I do not reasonably expected evaluation and management of this problem will require more than a 96 hour hospital stay. DISPOSITION-anticipate discharge to home after the hospital stay. - Mortality Measure Prognosis:: Good
[2020-03-07] MEDS ORDERED: HYDROmorphone 0.5 MG/0.5 ML Syringe IVPUSH PRN (18:38)
[2020-03-07] MEDS ORDERED: Ondansetron 4 MG/2 ML SDV IV PRN (18:38)
[2020-03-07] MEDS: Latanoprost 0.005% Ophth Soln 2.5 ML Bottle EYEBOTH SCH (20:45)
[2020-03-07] MEDS: Lactated Ringers 1,000 ML IV SCH (21:45)
[2020-03-08] MEDS: Lactated Ringers 1,000 ML IV SCH (05:30)
[2020-03-08] MEDS ORDERED: Sodium Ferric Gluconate Cmplex 250 MG in Sodium Chloride 0.9% 100 ML IV ONE (08:52)
[2020-03-08] MEDS ORDERED: Cyanocobalamin (Vitamin B12) 1,000 MCG/ML SDV IM ONE (09:00)
[2020-03-08] MEDS ORDERED: Fluticasone/Umeclidin/Vilanter [Trelegy Ellipta] INH SCH (09:00)
[2020-03-08] MEDS: Sodium Ferric Gluconate Cmplex 250 MG in Sodium Chloride 0.9% 100 ML IV SCH (10:00)
[2020-03-08] MEDS: Dextrose 5%-Lactated Ringers 1,000 ML IV SCH (18:12)
[2020-03-08] MEDS: Latanoprost 0.005% Ophth Soln 2.5 ML Bottle EYEBOTH SCH (21:50)
[2020-03-09] MEDS: Dextrose 5%-Lactated Ringers 1,000 ML IV SCH (02:33)
[2020-03-09] MEDS ORDERED: Sodium Chloride 0.9% 80 ML IV SCH (04:00)
[2020-03-09] MEDS ORDERED: Iopamidol 612 MG/ML 100 ML Bottle IV SCH (04:00)
--- NOTE | 2020-03-09 05:42 | CRLCT ---
INDICATION: Follow-up small bowel obstruction TECHNIQUE: CT abdomen and pelvis acquired with 100 cc Isovue-300 IV contrast. COMPARISON: March 07, 2020 FINDINGS: Lower chest: Small hiatal hernia. Liver: There is intrahepatic biliary ductal dilatation, unchanged. Spleen: Unremarkable. Pancreas: Unremarkable. Gallbladder and bile ducts: S/p cholecystectomy. Extrahepatic bile duct measures up to 1.4 cm with gradual tapering to the level of the pancreatic head. No stone mass identified within the duct. Adrenal glands: Unremarkable. Kidneys: Simple cyst on the left kidney. GI tract: No residual small bowel obstruction. Status post gastric bypass procedure. Vascular structures: Moderate atherosclerotic disease Lymph nodes: Unremarkable. Miscellaneous: Status post ventral herniorrhaphy. No free air or significant free fluid. Pelvic Organs: Unremarkable. Bones: Status post right hip arthroplasty. IMPRESSION: Interval resolution of small bowel obstruction. Persistent intrahepatic and extrahepatic biliary ductal dilatation. Recommend nonemergent MRCP for further evaluation. Remainder of nonurgent findings as described above. Please note that all CT scans at this facility use dose modulation, iterative reconstruction, and/or weight-based dosing when appropriate to reduce radiation dose to as low as reasonably achievable. Dictated by Katarina Karimi MD @ Mar 09 2020 5:34AM Signed by Dr. Katarina Karimi @ Mar 09 2020 5:41AM
[2020-03-09] MEDS ORDERED: TRELEGY ELLIPTA INH SCH (07:00)
[2020-03-09] MEDS ORDERED: Sodium Ferric Gluconate Cmplex 250 MG in Sodium Chloride 0.9% 100 ML IV ONE (09:00)
[2020-03-09] MEDS: Sodium Ferric Gluconate Cmplex 250 MG in Sodium Chloride 0.9% 100 ML IV SCH (09:56)
[2020-03-09 10:24] VITALS: BP 120/58; PULSE 59
--- NOTE | 2020-03-10 09:48 | CR ---
Abdomen 2V AP Upright Decub CLINICAL HISTORY: Follow-up SBO FINDINGS: There is persistent moderate diffuse fecal retention. There are scattered air-filled small bowel loops in the nonacute pattern. There is contrast in the bladder from recent CT. Patient is had previous abdominal hernia repair IMPRESSION: Moderate fecal retention Mild small bowel distention in a nonspecific pattern
== END 2020-03-09 12:12 | disposition home or self-care (01) | DRG 390 ==
LOC: JP.ED 15:04 → JP.MS 18:02
PROVIDERS: ADMIT Surgery; ATTEND Surgery
DX: K56.609 Unspecified intestinal obstruction, unspecified as to partial versus complete obstruction (principal); K91.31 Postprocedural partial intestinal obstruction; H54.7 Unspecified visual loss; H91.90 Unspecified hearing loss, unspecified ear; H40.9 Unspecified glaucoma; H35.30 Unspecified macular degeneration; K83.8 Other specified diseases of biliary tract; H91.91 Unspecified hearing loss, right ear; H54.62 Unqualified visual loss, left eye, normal vision right eye; J43.9 Emphysema, unspecified; K44.9 Diaphragmatic hernia without obstruction or gangrene; E61.1 Iron deficiency; M81.0 Age-related osteoporosis without current pathological fracture; M19.90 Unspecified osteoarthritis, unspecified site; M51.36 Other intervertebral disc degeneration, lumbar region; E66.9 Obesity, unspecified; E53.8 Deficiency of other specified B group vitamins; D50.9 Iron deficiency anemia, unspecified; Z91.048 Other nonmedicinal substance allergy status; I87.8 Other specified disorders of veins; Z96.659 Presence of unspecified artificial knee joint; Z96.649 Presence of unspecified artificial hip joint; Z98.84 Bariatric surgery status; Z91.09 Other allergy status, other than to drugs and biological substances; Z88.8 Allergy status to other drugs, medicaments and biological substances; Z88.1 Allergy status to other antibiotic agents; Z79.899 Other long term (current) drug therapy; Z86.711 Personal history of pulmonary embolism; Z79.01 Long term (current) use of anticoagulants; Z90.49 Acquired absence of other specified parts of digestive tract; Z98.890 Other specified postprocedural states; Z68.33 Body mass index [BMI] 33.0-33.9, adult
CPT/HCPCS: 36415; 74177; 80053; 83605; 84145; 85025; 86140; J1170 ×2; J2405; J7030; J7050; Q9967; 74021; 74021-26; 80048; 82728; 83735; 84100; 96374; 96375; 96376; 99285; 99285-25; A9270-GY; J2916; J3420; J7120; J7121

== ENCOUNTER 2020-05-24 17:33 | Emergency (ER) | payer MEDICARE, MEDICAID ==
[2020-05-24 17:56] VITALS: BP 106/44; PULSE 81
--- NOTE | 2020-05-24 19:43 | EDM.PDOC ---
ED HPI GENERAL MEDICAL PROBLEM - General Chief Complaint: General Stated Complaint: SEIZURE VIA NORTH Time Seen by Provider: 05/24/20 19:39 Source of Information: Reports: Patient, Family History Limitations: Reports: No Limitations - History of Present Illness INITIAL COMMENTS - FREE TEXT/NARRATIVE: 59-year-old female with a history of gastric bypass many years ago has had sev eral episodes historically of low blood sugar they apparently is the first time that she has had to come to the emergency department. Historically she felt the low sugar and ate something and resolved. This time she said she was eating normally and began to feel funny and then her saw her began to shake and bang her head on the bed headboard. He called for help and when the ambulance arrived she had already fully recovered and walked to the ambulance. She is not diabetic. The low sugar is probably relative to her bypass surgery and altered physiology. He had an EKG last month which was normal and recent laboratory work done as well as she has surgery on her left elbow coming up in a week Diaphoresis noted Onset: Today, Sudden Duration: Minutes:, Resolved Prior to Arrival Severity: Moderate Improves with: Reports: Eating Associated Symptoms: Reports: Confusion, Seizure Treatments CELL ATTENDANT: Reports: Other (see below) (Food) denies Pain Score (Numeric/FACES): 0 - Related Data Allergies Allergy/AdvReac Type Severity Reaction Status Date / Time dog dander Allergy Intermediate Difficulty Verified 05/24/20 17:57 Breathing adhesive tape Allergy Rash Verified 05/24/20 17:57 albuterol Allergy Rash Verified 05/24/20 17:57 cephalexin [From Keflex] Allergy Rash Verified 05/24/20 17:57 cat dander AdvReac Sneezing Verified 05/24/20 17:57 bandaid Allergy Rash Uncoded 05/24/20 17:57 Home Meds: Home Meds Cyanocobalamin (Vitamin B-12) [Cyanocobalamin Injection] 1,000 mcg IJ ASDIRECTED 02/06/17 [History] Vitamin B Complex [B Complex] 1 cap PO DAILY 02/06/17 [History] diphenhydrAMINE [Benadryl] 25 mg PO Q6H PRN 10/04/17 [History] Furosemide [Lasix] 40 mg PO DAILY 07/29/18 [History] Triamcinolone Acetonide [Kenalog 0.1% Crm] 1 applic TOP BID PRN 10/06/18 [History] Fluticasone/Umeclidin/Vilanter [Trelegy Ellipta 100-62.5-25] 1 puff INH DAILY 02/04/20 [History] Calcium Carbonate [Calcium] 500 mg PO BID 02/15/20 [History] Cholecalciferol (Vitamin D3) [Vitamin D3] 2,000 unit PO DAILY 03/07/20 [History] Iron 18 mg PO DAILY 03/07/20 [History] Zinc 50 mg PO DAILY 03/07/20 [History] Past Medical History HEENT History: Reports: Cataract, Glaucoma, Hard of Hearing, Impaired Vision, Macular Degeneration Other HEENT History: Blind in left eye, deaf in right ear Respiratory History: Reports: Asthma, COPD, PE, Other (See Below) Other Respiratory History: emphysema Gastrointestinal History: Reports: Bowel Obstruction, Cholelithiasis, Hiatal Hernia, Other (See Below) Other Gastrointestinal History: abdominal inc hernia 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: Dysfunctional Uterine Bleeding, Musculoskeletal History: Reports: Arthritis, Other (See Below), Osteoporosis, Osteoarthritis Other Musculoskeletal History: degenrative disc lower back Neurological History: Reports: Concussion Endocrine/Metabolic History: Reports: Obesity/BMI 30+, Other (See Below) Other Endocrine/Metabolic History: Borderline Diabetic Hematologic History: Reports: B12 Deficiency, Blood Transfusion(s), Iron Deficiency Dermatologic History: Reports: Venous Stasis Dermatitis - Infectious Disease History Infectious Disease History: Reports: Chicken Pox, Measles, Mumps - Past Surgical History Head Surgeries/Procedures: Reports: None GI Surgical History: Reports: Appendectomy, Cholecystectomy, Hernia, Abdominal, Hernia Repair/Other Musculoskeletal Surgical History: Reports: Hip Replacement, Knee Replacement, Shoulder Surgery, Other (See Below) Other Musculoskeletal Surgeries/Procedures:: Scheduled for l elbow surgery in [facility] May 30. Social & Family History - Family History Family Medical History: Noncontributory Respiratory: Reports: Interstitial Lung Disease Endocrine/Metabolic: Reports: Diabetes, type II Oncologic: Reports: Breast - Tobacco Use Tobacco Use Status *Q: Never Tobacco User Second Hand Smoke Exposure: Yes - Caffeine Use Caffeine Use: Reports: Coffee Other Caffeine Use: 2 cups per day Caffeine Use Comment: 4 cups per day - Alcohol Use Days Per Week of Alcohol Use: 0 - Recreational Drug Use Recreational Drug Use: No ED ROS GENERAL - Review of Systems Review Of Systems: Comprehensive ROS is negative, except as noted in HPI. Constitutional: Reports: No Symptoms HEENT: Reports: No Symptoms, Other (Have been surgically removed years ago) Respiratory: Reports: No Symptoms Cardiovascular: Reports: No Symptoms GI/Abdominal: Reports: No Symptoms : Reports: No Symptoms Musculoskeletal: Reports: No Symptoms Neurological: Reports: Seizure ED EXAM, GENERAL - Physical Exam Exam: See Below Free Text/Narrative:: 59-year-old alert cooperative female arrives by ambulance accompanied by her . She walked to the ambulance and has been feeling fine since arrival at the hospital and has no complaints. Course - Vital Signs Text/Narrative:: Is alert and cooperative throughout her stay in the emergency department. Work- up is discussed but she has had EKG and regular lab work done recently. I discussed the option of further work-up. We mutually agree not to do anything further at this juncture as it is unlikely I would find anything. Discharge alert cooperative and in no distress Last Recorded V/S: Last Vital Signs Temp 35.3 C L 05/24/20 17:54 Pulse 81 05/24/20 17:54 Resp 14 05/24/20 17:54 BP 106/44 L 05/24/20 17:54 Pulse Ox 95 05/24/20 17:54 Departure - Departure Time of Disposition: 19:45 Disposition: Home, Self-Care 01 Condition: Good Clinical Impression: Hypoglycemia - Discharge Information Referrals: Lexis Pa DO [Primary Care Provider] - Forms: ED Department Discharge Sepsis Event Note (ED) - Evaluation Sepsis Screening Result: No Definite Risk - Focused Exam Vital Signs: Vital Signs Temp Pulse Resp BP Pulse Ox 05/24/20 17:54 35.3 C L 81 14 106/44 L 95
== END 2020-05-24 20:00 | disposition home or self-care (01) ==
LOC: JP.ED 17:33
DX: E16.2 Hypoglycemia, unspecified (principal); J44.9 Chronic obstructive pulmonary disease, unspecified; E66.9 Obesity, unspecified; Z91.09 Other allergy status, other than to drugs and biological substances; Z88.1 Allergy status to other antibiotic agents; Z79.899 Other long term (current) drug therapy; Z90.49 Acquired absence of other specified parts of digestive tract; Z77.22 Contact with and (suspected) exposure to environmental tobacco smoke (acute) (chronic)
CPT/HCPCS: 99282; 99284

== ENCOUNTER 2020-05-31 15:21 | Observation (INO) | payer MEDICARE, MEDICAID ==
[2020-05-31] MEDS ORDERED: HYDROmorphone 0.5 MG/0.5 ML Syringe IVPUSH ONE (16:28)
[2020-05-31] MEDS ORDERED: Ondansetron 4 MG/2 ML SDV IVPUSH ONE (16:28)
[2020-05-31] MEDS ORDERED: Sodium Chloride 0.9% 1,000 ML IV SCH ×3 (16:30→18:30)
--- NOTE | 2020-05-31 16:32 | EDM.PDOC ---
ED HPI GENERAL MEDICAL PROBLEM - General Chief Complaint: Abdominal Pain Stated Complaint: STOMACH PAIN Time Seen by Provider: 05/31/20 16:29 Source of Information: Reports: Patient History Limitations: Reports: No Limitations - History of Present Illness INITIAL COMMENTS - FREE TEXT/NARRATIVE: PT ARRIVED WITH PAIN IN THE UPPER ABDOMAN. tHIS STARTED AT NOON TODAY AND SHE DID DO SOME VOMITING. sHE HAD A GASTRIC BY [facility] 12 YEARS AGO AND SHE HAS HAD NUMEROUS BOWEL OBSTRUCTIONS. Onset: Today Duration: Hour(s): Location: Reports: Abdomen Associated Symptoms: Reports: Loss of Appetite, Nausea/Vomiting Abdomen Pain Score (Numeric/FACES): 10 - Related Data Allergies Allergy/AdvReac Type Severity Reaction Status Date / Time cephalexin [From Keflex] Allergy Intermediate Rash Verified 05/31/20 15:44 dog dander Allergy Intermediate Difficulty Verified 05/31/20 15:44 Breathing adhesive tape Allergy Mild Rash Verified 05/31/20 15:44 albuterol Allergy Mild Rash Verified 05/31/20 15:44 cat dander AdvReac Mild Sneezing Verified 05/31/20 15:44 bandaid Allergy Mild Rash Uncoded 05/31/20 15:44 Home Meds: Home Meds Cyanocobalamin (Vitamin B-12) [Cyanocobalamin Injection] 1,000 mcg IJ ASDIRECTED 02/06/17 [History] Vitamin B Complex [B Complex] 1 cap PO DAILY 02/06/17 [History] diphenhydrAMINE [Benadryl] 25 mg PO Q6H PRN 10/04/17 [History] Furosemide [Lasix] 40 mg PO DAILY 07/29/18 [History] Triamcinolone Acetonide [Kenalog 0.1% Crm] 1 applic TOP BID PRN 10/06/18 [History] Fluticasone/Umeclidin/Vilanter [Trelegy Ellipta 100-62.5-25] 1 puff INH DAILY 02/04/20 [History] Calcium Carbonate [Calcium] 500 mg PO BID 02/15/20 [History] Cholecalciferol (Vitamin D3) [Vitamin D3] 2,000 unit PO DAILY 03/07/20 [History] Iron 18 mg PO DAILY 03/07/20 [History] Zinc 50 mg PO DAILY 03/07/20 [History] Past Medical History HEENT History: Reports: Cataract, Glaucoma, Hard of Hearing, Impaired Vision, Macular Degeneration Other HEENT History: Blind in left eye, deaf in right ear Respiratory History: Reports: Asthma, COPD, PE, Other (See Below) Other Respiratory History: emphysema Gastrointestinal History: Reports: Bowel Obstruction, Cholelithiasis, Hiatal Hernia, Other (See Below) Other Gastrointestinal History: abdominal inc hernia [employer] SERVER History: Reports: Dysfunctional Uterine Bleeding, Musculoskeletal History: Reports: Arthritis, Other (See Below), Osteoporosis, Osteoarthritis Other Musculoskeletal History: degenrative disc lower back Neurological History: Reports: Concussion Endocrine/Metabolic History: Reports: Obesity/BMI 30+, Other (See Below) Other Endocrine/Metabolic History: Borderline Diabetic Hematologic History: Reports: B12 Deficiency, Blood Transfusion(s), Iron Deficiency Dermatologic History: Reports: Venous Stasis Dermatitis - Infectious Disease History Infectious Disease History: Reports: Chicken Pox, Measles, Mumps - Past Surgical History Head Surgeries/Procedures: Reports: None HEENT Surgical History: Reports: None Respiratory Surgical History: Reports: None GI Surgical History: Reports: Appendectomy, Cholecystectomy, Hernia, Abdominal, Hernia Repair/Other Female Surgical History: Reports: Hysterectomy, Salpingo-Oophorectomy Endocrine Surgical History: Reports: None Musculoskeletal Surgical History: Reports: Hip Replacement, Knee Replacement, Shoulder Surgery, Other (See Below) Other Musculoskeletal Surgeries/Procedures:: Scheduled for l elbow surgery in [facility] May 30. Done on 05-30-2020 Dermatological Surgical History: Reports: None Social & Family History - Family History Family Medical History: No Pertinent Family History Respiratory: Reports: Interstitial Lung Disease Endocrine/Metabolic: Reports: Diabetes, type II Oncologic: Reports: Breast - Tobacco Use Tobacco Use Status *Q: Never Tobacco User - Caffeine Use Caffeine Use: Reports: Coffee Other Caffeine Use: 2 cups per day Caffeine Use Comment: 4 cups per day - Recreational Drug Use Recreational Drug Use: No ED ROS GENERAL - Review of Systems Review Of Systems: See Below Constitutional: Reports: No Symptoms HEENT: Reports: No Symptoms Respiratory: Reports: No Symptoms Cardiovascular: Reports: No Symptoms Endocrine: Reports: No Symptoms GI/Abdominal: Reports: Abdominal Pain, Vomiting (PT HAS NOT HAD A BM TODAY. ), Other ED EXAM, GI/ABD - Physical Exam Exam: See Below Text/Narrative:: PT ARRIVED WITH UPPER ABDOMANAL PAIN. sHE HAS BEEN VOMITING. tHE SEVERE PAIN STARTED ABOUT NOON TODAY. sHE HAS NOT HAD A BM TODAY. sHE HAS NOT HAD A FEVER. Exam Limited By: No Limitations General Appearance: Alert, Anxious, Moderate Distress Ears: Normal TMs Nose: Normal Inspection Throat/Mouth: Normal Inspection Head: Atraumatic Neck: Normal Inspection Respiratory/Chest: No Respiratory Distress Cardiovascular: Regular Rate, Rhythm GI/Abdominal Exam: Other (PT HAS A FIRM TENDER UPPER ABDOMAN WHICH IS GUARDED. ) (Female) Exam: Deferred Rectal (Female) Exam: Deferred Back Exam: Normal Inspection Extremities: Normal Inspection Neurological: Alert, Oriented, Normal Cognition Psychiatric: Flat Affect Course - Vital Signs Last Recorded V/S: Last Vital Signs Temp 35.8 C L 05/31/20 15:59 Pulse 74 05/31/20 16:57 Resp 16 05/31/20 15:59 BP 121/88 05/31/20 16:57 Pulse Ox 95 05/31/20 15:59 - Orders/Labs/Meds Orders: Active Orders 24 hr Category Date Time Status Iopamidol [Isovue-300 (61%)] Med 05/31/20 16:50 Active 100 ml IV . DIRECTED PRN Sodium Chloride 0.9% [Normal Saline] 1,000 ml Med 05/31/20 16:30 Active IV ASDIRECTED Sodium Chloride 0.9% [Normal Saline] 1,000 ml Med 05/31/20 17:15 Active IV ASDIRECTED Sodium Chloride 0.9% [Normal Saline] 80 ml Med 05/31/20 17:00 Active IV ASDIRECTED Medication Orders Sodium Chloride (Normal Saline) 1,000 mls @ 999 mls/hr IV ASDIRECTED [facility] Last Admin: 05/31/20 16:44 Dose: 999 mls/hr Documented by: [email or web address] Sodium Chloride (Normal Saline) 80 mls @ 3 mls/sec IV ASDIRECTED NAHEED Last Admin: 05/31/20 17:05 Dose: 3 mls/sec Documented by: [email or web address] Sodium Chloride (Normal Saline) 1,000 mls @ 999 mls/hr IV ASDIRECTED NAHEED Last Admin: 05/31/20 18:09 Dose: 999 mls/hr Documented by: [id number] Iopamidol (Isovue-300 (61%)) 100 ml IV . DIRECTED PRN PRN Reason: RADIOLOGY EXAM Stop: 06/01/20 16:51 Last Admin: 05/31/20 17:05 Dose: 100 ml Documented by: [email or web address] Labs: Laboratory Tests 05/31/20 05/31/20 05/31/20 Range/Units 16:27 16:50 16:50 WBC 9.9 (4.5-11.0) K/uL RBC 4.62 (3.30-5.50) M/uL Hgb 13.1 D (12.0-15.0) g/dL Hct 41.8 (36.0-48.0) % MCV 91 (80-98) fL MCH 28 (27-31) pg MCHC 31 L (32-36) % Plt Count 251 (150-400) K/uL Neut % (Auto) 83 H (36-66) % Lymph % (Auto) 8 L (24-44) % [place] % (Auto) 8 H (2-6) % Eos % (Auto) 1 L (2-4) % Baso % (Auto) 0 (0-1) % Sodium 139 L (140-148) mmol/L Potassium 4.5 (3.6-5.2) mmol/L Chloride 103 (100-108) mmol/L Carbon Dioxide 26 (21-32) mmol/L Anion Gap 14.5 H (5.0-14.0) mmol/L BUN 32 H D (7-18) mg/dL Creatinine 1.3 H D (0.6-1.0) mg/dL Est Cr Clr Drug Dosing 35.94 mL/min Estimated GFR (MDRD) 42 L (>60) Glucose 132 H (74-106) mg/dL Calcium 9.3 (8.5-10.1) mg/dL Total Bilirubin 1.0 D (0.2-1.0) mg/dL AST 122 H D (15-37) U/L ALT 60 D (12-78) U/L Alkaline Phosphatase 132 H (46-116) U/L C-Reactive Protein 1.32 H (0.0-0.3) mg/dL Total Protein 6.9 (6.4-8.2) g/dL Albumin 3.9 (3.4-5.0) g/dL Globulin 3.0 (2.3-3.5) g/dL Albumin/Globulin Ratio 1.3 (1.2-2.2) Urine Color (YELLOW) Urine Appearance (CLEAR) Urine pH (5.0-8.0) Ur Specific [place] (1.008-1.030) Urine Protein (NEGATIVE) mg/dL Urine Glucose (UA) (NEGATIVE) mg/dL Urine Ketones (NEGATIVE) mg/dL Urine Occult Blood (NEGATIVE) Urine Nitrite (NEGATIVE) Urine Bilirubin (NEGATIVE) Urine Urobilinogen (0.2-1.0) EU/dL Ur Leukocyte Esterase (NEGATIVE) Urine RBC (0-5) Urine WBC (0-5) Ur Epithelial Cells Urine Bacteria 05/31/20 Range/Units 18:01 WBC (4.5-11.0) K/uL RBC (3.30-5.50) M/uL Hgb (12.0-15.0) g/dL Hct (36.0-48.0) % MCV (80-98) fL MCH (27-31) pg MCHC (32-36) % Plt Count (150-400) K/uL Neut % (Auto) (36-66) % Lymph % (Auto) (24-44) % [place] % (Auto) (2-6) % Eos % (Auto) (2-4) % Baso % (Auto) (0-1) % Sodium (140-148) mmol/L Potassium (3.6-5.2) mmol/L Chloride (100-108) mmol/L Carbon Dioxide (21-32) mmol/L Anion Gap (5.0-14.0) mmol/L BUN (7-18) mg/dL Creatinine (0.6-1.0) mg/dL Est Cr Clr Drug Dosing mL/min Estimated GFR (MDRD) (>60) Glucose (74-106) mg/dL Calcium (8.5-10.1) mg/dL Total Bilirubin (0.2-1.0) mg/dL AST (15-37) U/L ALT (12-78) U/L Alkaline Phosphatase (46-116) U/L C-Reactive Protein (0.0-0.3) mg/dL Total Protein (6.4-8.2) g/dL Albumin (3.4-5.0) g/dL Globulin (2.3-3.5) g/dL Albumin/Globulin Ratio (1.2-2.2) Urine Color Yellow (YELLOW) Urine Appearance Clear (CLEAR) Urine pH 5.0 (5.0-8.0) Ur Specific [place] 1.010 (1.008-1.030) Urine Protein Negative (NEGATIVE) mg/dL Urine Glucose (UA) Negative (NEGATIVE) mg/dL Urine Ketones Negative (NEGATIVE) mg/dL Urine Occult Blood Negative (NEGATIVE) Urine Nitrite Positive H (NEGATIVE) Urine Bilirubin Negative (NEGATIVE) Urine Urobilinogen 0.2 (0.2-1.0) EU/dL Ur Leukocyte Esterase Trace H (NEGATIVE) Urine RBC Not seen (0-5) Urine WBC 5-10 H (0-5) Ur Epithelial Cells Rare Urine Bacteria Many Meds: Medications Generic Name Dose Route Start Last Admin Trade Name Danay PRN Reason Stop Dose Admin Sodium Chloride 1,000 mls @ 999 mls/hr 05/31/20 16:30 05/31/20 16:44 Normal Saline IV 999 mls/hr ASDIRECTED NAHEED Administration Sodium Chloride 80 mls @ 3 mls/sec 05/31/20 17:00 05/31/20 17:05 Normal Saline IV 3 mls/sec ASDIRECTED NAHEED Administration Sodium Chloride 1,000 mls @ 999 mls/hr 05/31/20 17:15 05/31/20 18:09 Normal Saline IV 999 mls/hr ASDIRECTED NAHEED Administration Iopamidol 100 ml 05/31/20 16:50 05/31/20 17:05 Isovue-300 (61%) IV 06/01/20 16:51 100 ml . DIRECTED PRN Administration RADIOLOGY EXAM Discontinued Medications Generic Name Dose Route Start Last Admin Trade Name Danay PRN Reason Stop Dose Admin Hydromorphone HCl 0.5 mg 05/31/20 16:28 05/31/20 16:48 Dilaudid IVPUSH 05/31/20 16:29 0.5 mg ONETIME ONE Administration Ondansetron HCl 4 mg 05/31/20 16:28 05/31/20 16:51 Zofran IVPUSH 05/31/20 16:29 4 mg ONETIME ONE Administration Sodium Chloride 10 ml 05/31/20 16:50 05/31/20 17:06 Normal Saline FLUSH 05/31/20 16:51 10 ml ONETIME ONE Administration - Re-Assessments/Exams Free Text/Narrative Re-Assessment/Exam: 05/31/20 17:24 PT HAS A ELEVATED CRP. hER WBC IS NOT ELEVATED. sHAS MARKED ABDOMANAL TENDERNES AND HAS HAD A CAT SCAN WITH CONTRAST. 05/31/20 18:20 CAT SCAN SHOWS A POSSIBLE BOWEL OBSTRUCTION-- SMALL BOWEL, tHERE IS ALOT OF RETAINED STOOL. Departure - Departure Disposition: Admitted As Inpatient 64 Condition: Fair Clinical Impression: Small bowel obstruction - Discharge Information Referrals: Lexis Pa DO [Primary Care Provider] - Forms: ED Department Discharge Care Plan Goals: ADMIT TO [facility] Sepsis Event Note (ED) - Evaluation Sepsis Screening Result: No Definite Risk - Focused Exam Vital Signs: Vital Signs Temp Pulse Resp BP Pulse Ox 05/31/20 16:57 74 121/88 05/31/20 15:59 35.8 C L 74 16 128/71 95 05/31/20 15:37 35.8 C L 74 16 128/71 95 - My Orders Last 24 Hours: My Active Orders 05/31/20 16:30 Sodium Chloride 0.9% [Normal Saline] 1,000 ml IV ASDIRECTED 05/31/20 16:50 Iopamidol [Isovue-300 (61%)] 100 ml IV . DIRECTED PRN 05/31/20 17:00 Sodium Chloride 0.9% [Normal Saline] 80 ml IV ASDIRECTED 05/31/20 17:15 Sodium Chloride 0.9% [Normal Saline] 1,000 ml IV ASDIRECTED - Assessment/Plan Last 24 Hours: My Active Orders 05/31/20 16:30 Sodium Chloride 0.9% [Normal Saline] 1,000 ml IV ASDIRECTED 05/31/20 16:50 Iopamidol [Isovue-300 (61%)] 100 ml IV . DIRECTED PRN 05/31/20 17:00 Sodium Chloride 0.9% [Normal Saline] 80 ml IV ASDIRECTED 05/31/20 17:15 Sodium Chloride 0.9% [Normal Saline] 1,000 ml IV ASDIRECTED
[2020-05-31] MEDS ORDERED: Sodium Chloride 0.9% 10 ML SDV FLUSH ONE (16:50)
[2020-05-31] MEDS ORDERED: Iopamidol 612 MG/ML 100 ML Bottle IV PRN (16:50)
[2020-05-31] MEDS ORDERED: Sodium Chloride 0.9% 80 ML IV SCH (17:00)
--- NOTE | 2020-05-31 17:53 | CRLCT ---
INDICATION: Upper abdominal pain. Prior cholecystectomy, right hip arthroplasty, and ventral herniorrhaphy. History of small-bowel obstruction. History of biliary ductal dilatation. TECHNIQUE: Contrast-enhanced CT of the abdomen and pelvis. 100 cc nonionic Isovue-300 administered. COMPARISON: March 09, 2020. FINDINGS: There are multiple mild to moderately dilated air and fluid filled small bowel loops throughout the abdomen and pelvis. An obvious transition point is not identified but the appearance is more compatible with a partial small bowel obstruction or less likely small bowel ileus. Moderately large amount of colonic stool scattered throughout the colon and rectum suggesting colonic constipation but not fecal impaction. No colonic obstruction. There are postsurgical changes from gastric bypass, cholecystectomy, hysterectomy, and ventral abdominal hernia repair. Additionally there are postsurgical changes within the lower abdomen which may be related in part to small bowel resection. Please correlate clinically. There is intra and extrahepatic biliary ductal dilatation which has progressed compared March 09, 2020 particularly the intrahepatic ductal dilatation which is more prominent. The extrahepatic common bile duct is persistently dilated now measuring 1.5 cm previously 1.4 cm. Minimal ascites inferior to the liver. Clinical and laboratory correlation recommended. ERCP may be required. Minor atelectasis at the right lung base. Clear left lung base. No intrahepatic mass. No splenomegaly. The pancreas is self is unremarkable. Normal adrenal glands. No hydronephrosis of either kidney. Small upper left renal cortical cyst unchanged. Normal caliber abdominal aorta and iliac arteries containing scattered vascular calcification. The included skeleton is negative for acute fractures. Multilevel degenerative disc disease of the included thoracolumbar spine. Multilevel degenerative facet arthropathy. IMPRESSION : 1. Partial small obstruction new compared March 09, 2020. An obvious transition point is not convincingly demonstrated. Generalized small bowel ileus is less likely but not entirely excluded. Minimal ascites inferior to the liver. 2. Colonic constipation. 3. Progressive intra and extrahepatic biliary ductal dilatation. Consider GI consultation/ERCP. 4. Postsurgical change in the abdomen and pelvis as described. Please note that all CT scans at this facility use dose modulation, iterative reconstruction, and/or weight-based dosing when appropriate to reduce radiation dose to as low as reasonably achievable. Dictated by Beto Vu MD @ May 31 2020 5:42PM Signed by Dr. Bteo Vu @ May 31 2020 5:52PM
[2020-05-31] MEDS ORDERED: Ondansetron 4 MG/2 ML SDV IVPUSH PRN (18:30)
[2020-05-31] MEDS ORDERED: HYDROmorphone/Normal Saline 15 MG/30 ML PCA IV PRN (19:16)
[2020-05-31] MEDS ORDERED: Naloxone 0.4 MG/ML SDV IV PRN (20:00)
[2020-06-01 07:04] VITALS: BP 119/64; PULSE 75
--- NOTE | 2020-06-01 14:02 | DISCH ---
FINAL DIAGNOSES: 1. Constipation/obstipation. 2. Recent narcotic use secondary to elbow surgery. 3. Bariatric surgery status. 4. History of multiple previous small bowel obstructions. 5. History of chronic obstructive pulmonary disease and asthma. 6. History of hypertension. OPERATIVE PROCEDURES: None. SUMMARY: A 59-year-old female status post Andreia-en-Y gastric bypass with multiple small bowel obstructions in the past. Most recently, she has been treated nonoperatively. She presented with onset of abdominal pain yesterday, and on CT scan, has some dilated small bowel loops along with large amount of constipation. The patient had an elbow surgery and has been on narcotics, which she normal is not on and feels that this has probably caused her to be constipated. Overnight, she moved her bowels several times and her abdomen soft, and plan will be to give her liquid diet, and this morning, if everything goes okay, she will be able to be discharged home. She will stay on a full liquid diet for 5 days and then a low-residue diet long-term as previously planned. She has been instructed to call or return if abdominal pain recurs. Otherwise, followup with Yasmin Dawson will be on June 24 at 9 a.m. This maybe a virtual visit, and she will continue home medications without the [place] plus Colace 100 mg p.o. b.i.d. /[id number]
== END 2020-06-01 08:25 | disposition home or self-care (01) ==
LOC: JP.ED 15:21 → JP.MS 18:40
PROVIDERS: ADMIT Hospitalist; ATTEND Surgery
DX: K59.00 Constipation, unspecified (principal); J44.9 Chronic obstructive pulmonary disease, unspecified; E66.9 Obesity, unspecified; I10 Essential (primary) hypertension; Z98.890 Other specified postprocedural states; Z90.49 Acquired absence of other specified parts of digestive tract; Z98.84 Bariatric surgery status; Z88.8 Allergy status to other drugs, medicaments and biological substances; Z91.048 Other nonmedicinal substance allergy status; Z79.899 Other long term (current) drug therapy; Z68.34 Body mass index [BMI] 34.0-34.9, adult
CPT/HCPCS: 36415; 74177; 80053; 81001; 85025; 86140; J1170; J2405; J7030; Q9967

== ENCOUNTER 2021-02-27 16:42 | Inpatient (IN) | payer MEDICARE, MEDICAID ==
--- NOTE | 2021-02-27 16:48 | EDM.PDOC ---
ED HPI GENERAL MEDICAL PROBLEM - General Chief Complaint: Gastrointestinal Problem Stated Complaint: STOMACH PAINS Time Seen by Provider: 02/27/21 17:10 Source of Information: Reports: Patient History Limitations: Reports: No Limitations - History of Present Illness INITIAL COMMENTS - FREE TEXT/NARRATIVE: 60 year old female presenting with abdominal pain and vomiting. The patient reports sudden onset upper abdominal pain that is associated with nausea and vomiting. She reports a history of gastric bypass and hernia surgeries in the past and has had several bowel obstructions previously. She reports that symptoms today are similar to previous obstructions. However, she reports that she has been having multiple soft stools today, with the last one just now while in the ED. Upper Abdomen Pain Score (Numeric/FACES): 10 - Related Data Allergies Allergy/AdvReac Type Severity Reaction Status Date / Time cephalexin [From Keflex] Allergy Intermediate Rash Verified 02/27/21 17:23 dog dander Allergy Intermediate Difficulty Verified 02/27/21 17:23 Breathing adhesive tape Allergy Mild Rash Verified 02/27/21 17:23 albuterol Allergy Mild Rash Verified 02/27/21 17:23 cat dander AdvReac Mild Sneezing Verified 02/27/21 17:23 bandaid Allergy Mild Rash Uncoded 02/27/21 17:23 Home Meds: Home Meds Cyanocobalamin (Vitamin B-12) [Cyanocobalamin Injection] 1,000 mcg IJ ASDIRECTED 02/06/17 [History] Vitamin B Complex [B Complex] 1 cap PO DAILY 02/06/17 [History] diphenhydrAMINE [Benadryl] 25 mg PO Q6H PRN 10/04/17 [History] Furosemide [Lasix] 40 mg PO DAILY 07/29/18 [History] Triamcinolone Acetonide [Kenalog 0.1% Crm] 1 applic TOP BID PRN 10/06/18 [History] Fluticasone/Umeclidin/Vilanter [Trelegy Ellipta 100-62.5-25] 1 puff INH DAILY 02/04/20 [History] Calcium Carbonate [Calcium] 500 mg PO DAILY 02/15/20 [History] Cholecalciferol (Vitamin D3) [Vitamin D3] 2,000 unit PO DAILY 03/07/20 [History] Iron 18 mg PO DAILY 03/07/20 [History] Zinc 50 mg PO DAILY 03/07/20 [History] Past Medical History HEENT History: Reports: Cataract, Glaucoma, Hard of Hearing, Impaired Vision, Macular Degeneration Other HEENT History: Blind in left eye, deaf in right ear Respiratory History: Reports: Asthma, COPD, PE, Other (See Below) Other Respiratory History: emphysema Gastrointestinal History: Reports: Bowel Obstruction, Cholelithiasis, Hiatal Hernia, Other (See Below) Other Gastrointestinal History: abdominal inc hernia CONICAL MIXER History: Reports: Dysfunctional Uterine Bleeding, Musculoskeletal History: Reports: Arthritis, Other (See Below), Osteoporosis, Osteoarthritis Other Musculoskeletal History: degenrative disc lower back Neurological History: Reports: Concussion Endocrine/Metabolic History: Reports: Obesity/BMI 30+, Other (See Below) Other Endocrine/Metabolic History: Borderline Diabetic Hematologic History: Reports: B12 Deficiency, Blood Transfusion(s), Iron Deficiency Dermatologic History: Reports: Venous Stasis Dermatitis - Infectious Disease History Infectious Disease History: Reports: Chicken Pox, Measles, Mumps - Past Surgical History Head Surgeries/Procedures: Reports: None HEENT Surgical History: Reports: None Respiratory Surgical History: Reports: None GI Surgical History: Reports: Appendectomy, Cholecystectomy, Hernia, Abdominal, Hernia Repair/Other Female Surgical History: Reports: Hysterectomy, Salpingo-Oophorectomy Endocrine Surgical History: Reports: None Musculoskeletal Surgical History: Reports: Hip Replacement, Knee Replacement, Shoulder Surgery, Other (See Below) Other Musculoskeletal Surgeries/Procedures:: Scheduled for l elbow surgery in [facility] May 30. Done on 05-30-2020 Dermatological Surgical History: Reports: None Social & Family History - Family History Family Medical History: No Pertinent Family History Respiratory: Reports: Interstitial Lung Disease Endocrine/Metabolic: Reports: Diabetes, type II Oncologic: Reports: Breast - Caffeine Use Caffeine Use: Reports: Coffee Other Caffeine Use: 2 cups per day Caffeine Use Comment: 4 cups per day ED ROS GENERAL - Review of Systems Review Of Systems: Comprehensive ROS is negative, except as noted in HPI. ED EXAM, GI/ABD - Physical Exam Exam: See Below Exam Limited By: No Limitations General Appearance: Alert, Moderate Distress, Active Emesis Ears: Normal External Exam Nose: Normal Inspection Throat/Mouth: Other (MMM) Head: Atraumatic, Normocephalic Neck: Supple, Full Range of Motion Respiratory/Chest: No Respiratory Distress, Lungs Clear, Normal Breath Sounds, No Accessory Muscle Use GI/Abdominal Exam: Soft, Distended (diffusely, worst in the epigastric area), Tender Extremities: Normal Range of Motion, Non-Tender, No Pedal Edema Neurological: Alert, Oriented, CN II-XII Intact, Normal Cognition, Normal Gait, No Motor/Sensory Deficits Psychiatric: Normal Affect, Normal Mood Skin Exam: Warm, Dry, Normal Color. No: Jaundice Course - Vital Signs Last Recorded V/S: Last Vital Signs Temp 98 F 02/27/21 17:12 Pulse 70 02/27/21 17:12 Resp 20 02/27/21 17:12 BP 152/64 H 02/27/21 17:12 Pulse Ox 97 02/27/21 17:12 - Orders/Labs/Meds Orders: Active Orders 24 hr Category Date Time Status Peripheral IV Care [RC] . DIRECTED Care 02/27/21 17:16 Active Iopamidol [Isovue-300 (61%)] Med 02/27/21 17:29 Active 100 ml IV . DIRECTED PRN Sodium Chloride 0.9% [Normal Saline] 1,000 ml Med 02/27/21 17:15 Active IV ASDIRECTED Sodium Chloride 0.9% [Normal Saline] 1,000 ml Med 02/27/21 20:15 Active IV ASDIRECTED Sodium Chloride 0.9% [Saline Flush] Med 02/27/21 17:16 Active 10 ml FLUSH ASDIRECTED PRN Nasogastric Orogastric Tube Insertion [OM.PC] Stat Oth 02/27/21 20:16 Ordered Peripheral IV Insertion Adult [OM.PC] Routine Oth 02/27/21 17:16 Ordered Medication Orders Sodium Chloride (Normal Saline) 1,000 mls @ 1,000 mls/hr IV ASDIRECTED [facility] Last Admin: 02/27/21 18:21 Dose: 1,000 mls/hr Documented by: PREILOR Sodium Chloride (Normal Saline) 1,000 mls @ 150 mls/hr IV ASDIRECTED [facility] Last Admin: 02/27/21 20:05 Dose: 150 mls/hr Documented by: JON Iopamidol (Iopamidol 612 Mg/Ml 100 Ml Bottle) 100 ml IV . DIRECTED PRN PRN Reason: RADIOLOGY EXAM Stop: 02/28/21 17:30 Last Admin: 02/27/21 18:37 Dose: 100 ml Documented by: GUILLERMO Sodium Chloride (Sodium Chloride 0.9% 10 Ml Syringe) 10 ml FLUSH ASDIRECTED PRN PRN Reason: Keep Vein Open Last Admin: 02/27/21 18:37 Dose: 10 ml Documented by: GUILLERMO Labs: Laboratory Tests 02/27/21 02/27/21 02/27/21 Range/Units 17:15 18:13 18:13 WBC 7.3 (4.5-11.0) K/uL RBC 4.57 (3.30-5.50) M/uL Hgb 11.3 L (12.0-15.0) g/dL Hct 35.5 L (36.0-48.0) % MCV 78 L (80-98) fL MCH 25 L (27-31) pg MCHC 32 (32-36) % Plt Count 358 (150-400) K/uL Neut % (Auto) 77.9 H (36-66) % Lymph % (Auto) 12.6 L (24-44) % Toole % (Auto) 7.6 H (2-6) % Eos % (Auto) 1.5 L (2-4) % Baso % (Auto) 0.4 (0-1) % Sodium 140 (140-148) mmol/L Potassium 3.8 (3.6-5.2) mmol/L Chloride 106 (100-108) mmol/L Carbon Dioxide 18 L (21-32) mmol/L Anion Gap 19.8 H (5.0-14.0) mmol/L BUN 21 H (7-18) mg/dL Creatinine 0.7 (0.6-1.0) mg/dL Est Cr Clr Drug Dosing 62.88 mL/min Estimated GFR (MDRD) > 60 (>60) Glucose 109 H (74-106) mg/dL Lactic Acid 1.2 (0.4-2.0) mmol/L Calcium 8.7 (8.5-10.1) mg/dL Total Bilirubin 0.3 D (0.2-1.0) mg/dL AST 24 D (15-37) U/L ALT 18 (12-78) U/L Alkaline Phosphatase 91 (46-116) U/L Total Protein 6.5 (6.4-8.2) g/dL Albumin 3.7 (3.4-5.0) g/dL Globulin 2.8 (2.3-3.5) g/dL Albumin/Globulin Ratio 1.3 (1.2-2.2) Lipase 1201 H (73-393) U/L Meds: Medications Generic Name Dose Route Start Last Admin Trade Name Freq PRN Reason Stop Dose Admin Sodium Chloride 1,000 mls @ 1,000 mls/hr 02/27/21 17:15 02/27/21 18:21 Normal Saline IV 1,000 mls/hr ASDIRECTED NAHEED Administration Sodium Chloride 1,000 mls @ 150 mls/hr 02/27/21 20:15 02/27/21 20:05 Normal Saline IV 150 mls/hr ASDIRECTED NAHEED Administration Iopamidol 100 ml 02/27/21 17:29 02/27/21 18:37 Iopamidol 612 Mg/Ml 100 Ml Bottle IV 02/28/21 17:30 100 ml . DIRECTED PRN Administration RADIOLOGY EXAM Sodium Chloride 10 ml 02/27/21 17:16 02/27/21 18:37 Sodium Chloride 0.9% 10 Ml Syringe FLUSH 10 ml ASDIRECTED PRN Administration Keep Vein Open Discontinued Medications Generic Name Dose Route Start Last Admin Trade Name Joséq PRN Reason Stop Dose Admin Hydromorphone HCl 0.5 mg 02/27/21 18:16 02/27/21 18:19 Hydromorphone 0.5 Mg/0.5 Ml Syringe IVPUSH 02/27/21 18:17 0.5 mg ONETIME ONE Administration Hydromorphone HCl 0.5 mg 02/27/21 19:21 02/27/21 19:25 Hydromorphone 0.5 Mg/0.5 Ml Syringe IVPUSH 02/27/21 19:22 0.5 mg ONETIME ONE Administration Sodium Chloride 79 mls @ 3 mls/sec 02/27/21 17:30 02/27/21 18:37 Normal Saline IV 02/27/21 17:31 3 mls/sec ASDIRECTED NAHEED Administration Ondansetron HCl 4 mg 02/27/21 17:15 02/27/21 18:14 Ondansetron 4 Mg/2 Ml Sdv IVPUSH 02/27/21 17:16 4 mg ONETIME ONE Administration Ondansetron HCl 4 mg 02/27/21 18:42 02/27/21 19:00 Ondansetron 4 Mg/2 Ml Sdv IVPUSH 02/27/21 18:43 4 mg ONETIME ONE Administration Sodium Chloride 10 ml 02/27/21 17:29 02/27/21 18:29 Sodium Chloride 0.9% 10 Ml Syringe FLUSH 02/27/21 17:30 10 ml ONETIME ONE Administration Departure - Departure Time of Disposition: 20:26 Disposition: Admitted As Inpatient 64 Clinical Impression: Small bowel obstruction - Discharge Information Referrals: Lexis Pa DO [Primary Care Provider] - Forms: ED Department Discharge Sepsis Event Note (ED) - Focused Exam Vital Signs: Vital Signs Temp Pulse Resp BP Pulse Ox 02/27/21 17:12 98 F 70 20 152/64 H 97 02/27/21 17:04 98 F 70 20 152/64 H 97 - Problem List Review Problem List Initiated/Reviewed/Updated: Yes - My Orders Last 24 Hours: My Active Orders 02/27/21 17:15 Sodium Chloride 0.9% [Normal Saline] 1,000 ml IV ASDIRECTED 02/27/21 17:16 Peripheral IV Care [RC] . DIRECTED Sodium Chloride 0.9% [Saline Flush] 10 ml FLUSH ASDIRECTED PRN Peripheral IV Insertion Adult [OM.PC] Routine 02/27/21 17:29 Iopamidol [Isovue-300 (61%)] 100 ml IV . DIRECTED PRN 02/27/21 20:15 Sodium Chloride 0.9% [Normal Saline] 1,000 ml IV ASDIRECTED 02/27/21 20:16 Nasogastric Orogastric Tube Insertion [OM.PC] Stat - Assessment/Plan Last 24 Hours: My Active Orders 02/27/21 17:15 Sodium Chloride 0.9% [Normal Saline] 1,000 ml IV ASDIRECTED 02/27/21 17:16 Peripheral IV Care [RC] . DIRECTED Sodium Chloride 0.9% [Saline Flush] 10 ml FLUSH ASDIRECTED PRN Peripheral IV Insertion Adult [OM.PC] Routine 02/27/21 17:29 Iopamidol [Isovue-300 (61%)] 100 ml IV . DIRECTED PRN 02/27/21 20:15 Sodium Chloride 0.9% [Normal Saline] 1,000 ml IV ASDIRECTED 02/27/21 20:16 Nasogastric Orogastric Tube Insertion [OM.PC] Stat Assessment:: This is a 60 year old female with a history of gastric bypass surgery presenting with abdominal pain and vomiting. Differential diagnosis includes SBO, perforation, pancreatitis, gastritis, diverticulitis, among others. She is afebrile on arrival, but uncomfortable appearing and retching almost continuously. Labs were obtained and were unremarkable. CT of the abd/pelvis showed a high grade small bowel obstruction. I discussed the patient with controls project engineer general surgeon, Dr. Metz, who recommended NGT placement and admission to the hospitalist. I discussed the patient with the controls project engineer hospitalist, Dr. Prince, who accepted the patient for admission. She has been treated with IVF, dilaudid, and zofran while in the ED. She was admitted in stable condition.
[2021-02-27] MEDS ORDERED: Ondansetron 4 MG/2 ML SDV IVPUSH ONE ×2 (17:15→18:42)
[2021-02-27] MEDS ORDERED: Sodium Chloride 0.9% 1,000 ML IV SCH ×3 (17:15→21:30)
[2021-02-27] MEDS ORDERED: Sodium Chloride 0.9% 10 ML Syringe FLUSH PRN (17:16)
[2021-02-27] MEDS ORDERED: Sodium Chloride 0.9% 10 ML Syringe FLUSH ONE (17:29)
[2021-02-27] MEDS ORDERED: Iopamidol 612 MG/ML 100 ML Bottle IV PRN (17:29)
[2021-02-27] MEDS ORDERED: HYDROmorphone 0.5 MG/0.5 ML Syringe IVPUSH ONE ×4 (18:16→21:43)
--- NOTE | 2021-02-27 19:43 | CRLCT ---
For Patients: As a result of the Century Cures Act, medical imaging exams and procedure reports are released immediately into your electronic medical record. You may view this report before your referring provider. If you have questions, please contact your health care provider. INDICATION: Abdominal pain, vomiting. Concern for small bowel obstruction. TECHNIQUE: CT abdomen and pelvis acquired with 100 mL Isovue-300 contrast. COMPARISON: CT abdomen/pelvis dated 05/31/2020. FINDINGS: Lower chest: No focal consolidation. Liver: Too small to characterize hypodense hepatic lesions. Gallbladder and bile ducts: Gallbladder is surgically absent. Prominence of the biliary ducts, likely secondary to postcholecystectomy state. Pancreas: Unremarkable. Spleen: Unremarkable. Adrenal glands: Unremarkable. Kidneys: Kidneys enhance symmetrically, without hydronephrosis. Too small to characterize hypodense left renal lesions. Retroperitoneum: No lymphadenopathy. Bowel and mesentery: Postsurgical changes of gastric bypass. Significant fluid-filled dilation of the hepatobiliary limb, which appears to continue past the jejunojejunal anastomosis, with transition point in the mid pelvis. No definite pneumoperitoneum. Bladder: Unremarkable for degree of distension. Reproductive organs: Not well visualized secondary to streak artifact. Pelvic lymph nodes: No definite lymphadenopathy. Vessels: Atherosclerotic calcifications. Abdominal wall: No acute abdominal wall abnormality. Bones: Multilevel degenerative changes of the spine. No suspicious/aggressive focal osseous lesion. Right hip arthroplasty. IMPRESSION: Postsurgical changes of gastric bypass. Significant fluid-filled small-bowel dilation of the hepatobiliary limb, which appears to extend past the jejunojejunal anastomosis with transition point in the mid pelvis, consistent with high-grade small bowel obstruction. Please note that all CT scans at this facility use dose modulation, iterative reconstruction, and/or weight-based dosing when appropriate to reduce radiation dose to as low as reasonably achievable. Dictated by Delmar Doherty MD @ 02/27/2021 7:41:[address] Delmar Doherty @ Feb 27 2021 7:41PM
[2021-02-27] MEDS ORDERED: Triamcinolone Acetonide 0.1% Crm 15 GM Tube TOP PRN (21:32)
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
[2021-02-27] MEDS: HYDROmorphone 0.5 MG/0.5 ML Syringe IVPUSH PRN (22:54)
[2021-02-28] MEDS: HYDROmorphone 0.5 MG/0.5 ML Syringe IVPUSH PRN ×8 (01:00→07:58)
[2021-02-28] MEDS: Ondansetron 4 MG/2 ML SDV IV PRN ×2 (01:02→06:23)
[2021-02-28] MEDS ORDERED: Bupivacaine 0.5% 50 ML MDV ONE (07:52)
[2021-02-28] MEDS ORDERED: Lidocaine 1% with EPINEPHrine 1:100,000 50 ML MDV ONE (07:52)
[2021-02-28] MEDS ORDERED: Meropenem 500 MG SDV ONE (07:53)
[2021-02-28] MEDS ORDERED: fentaNYL 250 MCG/5 ML SDV ONE ×2 (07:59→08:58)
[2021-02-28] MEDS ORDERED: Glycopyrrolate 0.2 MG/ML 5 ML MDV ONE (07:59)
[2021-02-28] MEDS ORDERED: Dexamethasone 4 MG/ML SDV ONE (07:59)
[2021-02-28] MEDS ORDERED: Ondansetron 4 MG/2 ML SDV ONE (07:59)
[2021-02-28] MEDS ORDERED: Succinylcholine 200 MG/10 ML MDV ONE (07:59)
[2021-02-28] MEDS ORDERED: Rocuronium 50 MG/5 ML Vial ONE ×2 (07:59→08:58)
[2021-02-28] MEDS ORDERED: Neostigmine Methylsulfate 1 MG/ML 5 ML Syringe ONE (07:59)
[2021-02-28] MEDS ORDERED: Propofol 200 MG/20 ML SDV ONE (07:59)
[2021-02-28] MEDS ORDERED: Meropenem 500 MG in Sodium Chloride 0.9% 50 ML IV ONE (08:00)
[2021-02-28] MEDS ORDERED: Non-Formulary Medication 1 Each (Fluticasone/Umeclidin/Vilanter [Trelegy Ellipta 100-62.5- INH SCH (09:00)
[2021-02-28] MEDS ORDERED: Lactated Ringers 1,000 ML ONE ×2 (09:29)
[2021-02-28] MEDS ORDERED: hydrOXYzine HCL 100 MG/2 ML SDV IM ONE (11:02)
[2021-02-28] MEDS ORDERED: HYDROmorphone/Normal Saline 15 MG/30 ML PCA IV PRN (11:08)
[2021-02-28] MEDS ORDERED: Naloxone 0.4 MG/ML SDV IV PRN (11:15)
[2021-02-28] MEDS ORDERED: Linezolid 600 MG in Premix Bag 1 BAG IV ONE (11:45)
[2021-02-28] MEDS ORDERED: Cyclobenzaprine 10 MG Tab PO PRN (12:34)
[2021-02-28] MEDS ORDERED: Labetalol 20 MG/4 ML Syringe IVPUSH PRN (12:45)
[2021-02-28] MEDS ORDERED: diphenhydrAMINE 50 MG/ML SDV IVPUSH PRN (12:45)
[2021-02-28] MEDS ORDERED: hydrOXYzine HCL 100 MG/2 ML SDV IM PRN (12:45)
[2021-02-28] MEDS ORDERED: Acetaminophen 500 MG Tab PO PRN (12:45)
[2021-02-28] MEDS: Dextrose 5%-Lactated Ringers 1,000 ML IV SCH ×2 (13:23→22:52)
[2021-02-28] MEDS ORDERED: Scopolamine 1.5 MG Transdermal Patch TOP ONE (14:00)
[2021-02-28] MEDS ORDERED: Acetaminophen 500 MG Tab PO SCH (14:00)
[2021-02-28] MEDS: Meropenem 500 MG in Sodium Chloride 0.9% 50 ML IV SCH ×2 (14:17→20:11)
[2021-02-28] MEDS: Pantoprazole 40 MG Vial IVPUSH SCH (14:19)
[2021-02-28] MEDS: SCOPOLAMINE PATCH CHECK TOP SCH (14:19)
[2021-02-28] MEDS ORDERED: MVI, Adult with Vitamin K 10 ML, Thiamine 200 MG, Zinc/Copper/Manganese/Selenium 1 ML i... IV SCH ×4 (16:00)
[2021-02-28] MEDS: VILANTEROL INH SCH (17:42)
[2021-02-28] MEDS: UMECLIDINIUM INH SCH (17:42)
[2021-02-28] MEDS: FLUTICASONE INH SCH (17:42)
[2021-02-28] MEDS: Acetaminophen 500 MG Tab PO SCH (18:12)
[2021-02-28] MEDS: Linezolid 600 MG in Premix Bag 1 BAG IV SCH (22:54)
[2021-03-01] MEDS: Meropenem 500 MG in Sodium Chloride 0.9% 50 ML IV SCH ×4 (03:05→20:11)
[2021-03-01] MEDS: Acetaminophen 500 MG Tab PO SCH ×3 (03:07→18:12)
[2021-03-01] MEDS: Dextrose 5%-Lactated Ringers 1,000 ML IV SCH ×3 (04:40→13:58)
[2021-03-01] MEDS: FLUTICASONE INH SCH (08:33)
[2021-03-01] MEDS: UMECLIDINIUM INH SCH (08:33)
[2021-03-01] MEDS: VILANTEROL INH SCH (08:33)
[2021-03-01] MEDS: Celecoxib 200 MG Cap PO SCH ×2 (08:34→20:43)
[2021-03-01] MEDS ORDERED: SCOPOLAMINE PATCH CHECK TOP SCH (09:00)
[2021-03-01] MEDS ORDERED: Furosemide 20 MG/2 ML VIAL IV ONE ×2 (09:30→18:15)
[2021-03-01] MEDS: SCOPOLAMINE PATCH CHECK TOP SCH (09:53)
[2021-03-01] MEDS: Magnesium Sulfate/Water 2 GM in Premix Bag 1 BAG IV SCH ×3 (09:54→21:50)
[2021-03-01] MEDS ORDERED: Potassium Phosphates 25 MMOLE in Sodium Chloride 0.9% 250 ML IV ONE (11:00)
[2021-03-01] MEDS: Linezolid 600 MG in Premix Bag 1 BAG IV SCH ×2 (12:26→22:42)
[2021-03-01] MEDS: Tiotropium BR/Olodaterol HCL 4 GM Inhalation Spray 2.5mcg/1 dose; 10 doses INH SCH (12:29)
[2021-03-01] MEDS: Mometasone Furoate HFA 100mcg/Puff 13 GM Inhaler INH SCH ×2 (12:29→20:42)
[2021-03-01] MEDS: Pantoprazole 40 MG Vial IVPUSH SCH (13:51)
[2021-03-01] MEDS ORDERED: Potassium Phosphates 20 MMOLE in Sodium Chloride 0.9% 250 ML IV ONE (15:00)
[2021-03-01] MEDS ORDERED: MVI, Adult with Vitamin K 10 ML, Thiamine 200 MG, Zinc/Copper/Manganese/Selenium 1 ML i... IV SCH ×4 (16:00)
[2021-03-01] MEDS: HYDROmorphone 2 MG Tab PO PRN (21:45)
[2021-03-02] MEDS: Meropenem 500 MG in Sodium Chloride 0.9% 50 ML IV SCH ×2 (02:01→07:25)
[2021-03-02] MEDS: HYDROmorphone 2 MG Tab PO PRN ×2 (02:01→19:57)
[2021-03-02] MEDS: Acetaminophen 500 MG Tab PO SCH ×3 (02:01→17:37)
[2021-03-02] MEDS: Dextrose 5%-Lactated Ringers 1,000 ML IV SCH (02:05)
[2021-03-02] MEDS: Magnesium Sulfate/Water 2 GM in Premix Bag 1 BAG IV SCH ×4 (04:00→21:36)
[2021-03-02] MEDS ORDERED: Iopamidol 612 MG/ML 50 ML SDV PO ONE (04:19)
[2021-03-02] MEDS ORDERED: Dextrose 5%-Lactated Ringers 1,000 ML IV SCH (06:56)
[2021-03-02] MEDS: Tiotropium BR/Olodaterol HCL 4 GM Inhalation Spray 2.5mcg/1 dose; 10 doses INH SCH (07:06)
[2021-03-02] MEDS: Mometasone Furoate HFA 100mcg/Puff 13 GM Inhaler INH SCH ×2 (07:06→21:39)
--- NOTE | 2021-03-02 08:24 | PN ---
DATE OF SERVICE: 03/02/2021 SUBJECTIVE: Alea is postoperative day 2. She is having multiple bowel movements. Pain is controlled. Tolerating a step 1 diet. Armstrong catheter was removed at 8 p.m. last evening. She is voiding without difficulty. Oral intake 1380, output 3375, and she has had 4 BMs in the past 24 hours. REVIEW OF SYSTEMS: Remainder of review of systems negative for any pertinent positives and negatives. OBJECTIVE: GENERAL: Alea is a pleasant 60-year-old female. She is alert and orientated. VITAL SIGNS: TPR last recorded on 03/01/2021 at 2245, TPR is 96.3; 80; 16; blood pressure 104/38. HEENT: Negative. NECK: Supple. HEART: Regular rate and rhythm. LUNGS: Clear. ABDOMEN: Dressing dry and intact. Abdominal binder is on. EXTREMITIES: Without peripheral edema. ASSESSMENT: Exploratory laparotomy with lysis of extensive adhesions. 1. Small-bowel resection. 2. Repair of small bowel injury secondary to takedown from mesh. 3. Small bowel strictureplasty. 4. Extensive tube decompression of small bowel. 5. Placement of Interceed mesh x3. 6. Placement of left triple-lumen catheter. 7. Limited peripheral vein access. 8. Closed-loop adhesive small bowel obstruction with segmental sarah-infarction. 9. Marked distention of proximal small bowel. 10.Adverse small bowel injury related to takedown from mesh. 11.Separate small-bowel stricture. 12.Date of procedure: 02/28/2021. Surgeon: Froilan Metz MD. PLAN: 1. K-Phos 60 millimoles IV today. 2. Check CBC, CMP, phos, and BNP in a.m. 3. Decrease IV to 40 mL/h. 4. Probiotics, take 2 b.i.d. orally scheduled. 5. Step 3 bariatric gastric bypass diet. 6. Continue ambulation and use of incentive spirometer. 7. We will evaluate p.r.n. or in a.m. Yasmin Osman PA-C /[id number]
[2021-03-02] MEDS ORDERED: Cyanocobalamin (Vitamin B12) 1,000 MCG/ML SDV IM ONE (09:00)
--- NOTE | 2021-03-02 09:04 | CR ---
Abdomen 1V Upright CLINICAL HISTORY: NG tube placement FINDINGS: No free air is identified. Intestinal gas pattern is nonspecific. NG tube has been placed. It is near the GE junction. The side port appears to be above the GE junction. There has been previous gastric surgery IMPRESSION: NG tube just beyond GE junction Nonspecific intestinal gas pattern
[2021-03-02] MEDS: SCOPOLAMINE PATCH CHECK TOP SCH (09:22)
[2021-03-02] MEDS: Lactobacillus Rhamnosus GG (Probiotic) Cap PO SCH ×2 (09:22→21:38)
[2021-03-02] MEDS: Celecoxib 200 MG Cap PO SCH ×2 (09:22→21:38)
[2021-03-02] MEDS: Potassium Phosphates 20 MMOLE in Sodium Chloride 0.9% 250 ML IV SCH ×3 (09:38→15:15)
--- NOTE | 2021-03-02 09:53 | CR ---
CHEST: Portable 02/28/2021 11:53 AM CLINICAL HISTORY:Line placement COMPARISON:CT 2018 FINDINGS: There is a central venous line from the left subclavian approach. Tip is in the upper right atrium. The heart size, pulmonary vascularity and hilar structures are normal. No infiltrate effusion or pneumothorax is seen. IMPRESSION: No acute cardiopulmonary process. Central line as above
--- NOTE | 2021-03-02 10:46 | CR ---
UGI Limited HISTORY: Postbariatric surgery, revision FINDINGS: Patient swallowed water-soluble contrast. Upright views of the abdomen show no evidence of extravasation or obstruction. IMPRESSION: Status post bariatric surgery revision No extravasation or obstruction seen
[2021-03-02] MEDS ORDERED: Metoclopramide 10 MG/2 ML SDV IVPUSH PRN (12:00)
[2021-03-02] MEDS: Pantoprazole 40 MG Tab.CR PO SCH (13:04)
--- NOTE | 2021-03-02 15:12 | PN ---
DATE OF SERVICE: 03/01/2021 The patient has been afebrile with stable vital signs. Urine output has been satisfactory, and no nausea or vomiting have been noted. The respiratory status appeared to be satisfactory. Her BNP is fairly high in the mid 4000s, and given this, we will give her some Lasix this morning. Her K-Phos is either low or marginally low and that will be replaced. The magnesium is somewhat low, and that will be replaced. I will repeat the Lasix dose after the K-Phos infusion. Recheck some labs in the morning. Otherwise, have her stay n.p.o. except ice chips. We will get an upper GI x-ray in the morning to see how things are going through the GI tract, and if that looks okay, we will begin advancing the diet. Froilan Metz MD /[id number]
[2021-03-03] MEDS: Acetaminophen 500 MG Tab PO SCH ×2 (02:10→09:36)
[2021-03-03] MEDS: Magnesium Sulfate/Water 2 GM in Premix Bag 1 BAG IV SCH ×2 (04:27→09:36)
[2021-03-03] MEDS ORDERED: Potassium Phos in 0.9 % NaCl 15 MMOL in Premix Bag 1 BAG IV SCH ×2 (07:00)
[2021-03-03] MEDS: Tiotropium BR/Olodaterol HCL 4 GM Inhalation Spray 2.5mcg/1 dose; 10 doses INH SCH (07:19)
[2021-03-03] MEDS: Mometasone Furoate HFA 100mcg/Puff 13 GM Inhaler INH SCH (07:19)
[2021-03-03] MEDS: Potassium Phosphates 15 MMOLE in Sodium Chloride 0.9% 250 ML IV SCH ×2 (08:06→11:27)
[2021-03-03] MEDS: Lactobacillus Rhamnosus GG (Probiotic) Cap PO SCH (08:06)
[2021-03-03] MEDS: Pantoprazole 40 MG Tab.CR PO SCH (08:06)
[2021-03-03] MEDS: Celecoxib 200 MG Cap PO SCH (08:06)
[2021-03-03 14:45] VITALS: BP 153/77; PULSE 81
--- NOTE | 2021-03-06 01:34 | DISCH ---
ADMISSION DIAGNOSIS: Partial small bowel obstruction. DISCHARGE DIAGNOSES: 1. Exploratory laparotomy with lysis of extensive adhesions. 2. Small-bowel resection. 3. Repair of small-bowel injury secondary to takedown from mesh. 4. Small bowel strictureplasty. 5. Extensive tube decompression of small bowel. 6. Placement of Interceed mesh x3. 7. Placement of triple lumen catheter. POSTOPERATIVE DIAGNOSES: 1. Limited peripheral vein access. 2. Closed-loop adhesive small bowel obstruction with segmental sarah-infarction. 3. Marked distention of proximal small bowel. 4. Adverse small bowel injury related to takedown from mesh. 5. Separate small-bowel stricture. 6. Date of procedure: 02/28/2021. Surgeon: Froilan Metz MD. HISTORY: Alea Contreras is a pleasant 60-year-old female with history of Andreia-en-Y gastric bypass surgery and several bowel obstruction. She presented to the emergency department at [facility] with severe sudden onset of abdominal pain. After preoperative evaluation and discussion of possible risks and possible complications, she wished to proceed with surgical procedure. HOSPITAL COURSE: Alea had her surgery on 02/28/2021. She had no operative complications. On postoperative day #1, vital signs were stable. Urine output was adequate. BNP was over 4000. She was given some Lasix and her potassium and phosphorus were low and that was replaced along with IV magnesium. On postoperative day 2, she was given K-Phos 60 millimoles, IV rate was decreased, started on probiotics and advanced to a step 3 diet. Pain was well controlled. On postoperative day 3, she was able to be discharged to home. Pain was well managed, activity was good. She was having adequate bowel movements and active and vital signs stable. PHYSICAL EXAMINATION: GENERAL: Alea Contreras is a pleasant 60-year-old female. VITAL SIGNS: Height is 5 feet 1 inch, weight 182 pounds. TPR is 98.2, 84, 18. Blood pressure 131/54. HEENT: Negative. NECK: Supple. HEART: Regular rate and rhythm. LUNGS: Clear. ABDOMEN: Aquacel dressings on. Abdominal binder is on. EXTREMITIES: Without peripheral edema. DISPOSITION: Discharged to home. CONDITION: Stable and improving. FOLLOWUP APPOINTMENT: With Yasmin Osman PA-C on 03/10/2021 at 9 a.m. She is to resume her home medications. DIET: Step 3 gastric bypass diet. ACTIVITY: 1. No lifting greater than 10 pounds for 6 weeks. 2. Driving, do not drive for 1 week or while on narcotic pain medication. 3. Shower/bathing, may shower. 4. Keep operative site clean and dry. 5. Take off Aquacel dressing on Tuesday03/06/2021. 6. Wear abdominal binder for 6 weeks and then as tolerated. 7. Notify provider if any fever, increased pain, swelling, redness, drainage, nausea, or vomiting. SPECIAL INSTRUCTIONS: Use incentive spirometer 10 times every hour while awake for 1 week. /[id number]
--- NOTE | 2021-03-11 07:47 | OR ---
DATE OF PROCEDURE: 02/28/2021 SURGEON: Froilan Metz MD PREOPERATIVE DIAGNOSES: 1. Small-bowel obstruction. 2. Limited peripheral venous access. POSTOPERATIVE DIAGNOSES: 1. Limited peripheral venous access. 2. 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 3. Marked distention of the small bowel proximal to the way of obstruction. 4. Area of small bowel injury related to adhesions to the mesh. 5. Separate small bowel stricture. OPERATIVE PROCEDURES: 1. Placement of left subclavian vein triple-lumen catheter (29185). 2. Exploratory laparotomy with lysis of extensive adhesions and a small bowel resection (26584). 3. Repair of area of small bowel injury, status post takedown of the small bowel from mesh (80482). 4. Small bowel stricturoplasty (13284). 5. Enterotomy for tube decompression of the distended proximal small bowel (96626). 6. Placement of Interceed mesh x3 (85169). ANESTHESIA: General. INDICATIONS FOR PROCEDURE: The patient presents overnight with a picture of small bowel obstruction, and exploratory laparotomy is clinically indicated for treatment of the small bowel obstruction. The patient had extremely limited peripheral venous access with presently an IV in one of her legs and a central line was also being placed currently. Potential risks of the procedure including bleeding, infection, injury to underlying viscera, problems with leaks from any bowel resection sites were reviewed as well as possibility of cardiopulmonary, septic, or hemorrhagic complications leading to and the patient wishes to proceed. DETAILS OF PROCEDURE: The patient was taken to the operating room and placed in a supine position. After general endotracheal anesthesia was induced, the upper chest and neck areas were prepped and draped. Left subclavian vein was cannulated. Guidewire passed, and over the guidewire, triple-lumen catheter positioned. Good in and outflow was noted. Ports were flushed with heparinized saline. The catheter was sutured to the skin with some 3-0 Vicryl stitch. Subsequent chest x-ray showed good catheter position without complications. The abdomen was then prepped and draped. A midline incision was made and carried down through the full-thickness abdominal wall. Upon entering the abdomen, the patient was noted to have some strangulated and dilated bowel loops predominantly with lower abdomen and pelvis. These were mobilized from some loose adhesions. Single band of adhesion was noted to be causing the problem with the bowel more or less tied in a knot around the area. As this was released, the patient had an area of obvious hemorrhagic necrosis over this segment of roughly 15 inches of the small bowel. The bowel proximal and distal to that was divided and the underlying mesentery divided as well with SHARLA raquel and that segment delivered from the field. Further dissection revealed an area of small bowel which was densely adherent to the patient's underlying mesh. As this dissection was completed, there were 3 areas of deserosalization and these areas were then repaired with transversely oriented firings of the SHARLA stapler which did not result in a significant luminal reduction. The patient was noted have a dilated proximal small bowel above the level of anastomosis. Enterotomy was made on the proximal end of the divided small bowel and a [place] sump tube placed into this and large volume of air and bilious fluid was removed thus decompressing the small bowel back to level of probably ligament of Treitz. At that point, used for initial anastomosis with the adjacent small bowel which was accomplished with internal firing of the 60 mm stapler followed by 30 mm stapler. Common opening was then closed transversely with the purple load and the angles anastomosed and the mesenteric defect approximated with some 3-0 Vicryl stitch. The patient was noted after dissection to have more areas of small bowel stricture as well adhesions were still somewhat narrowed and small bowel stricturoplasty was accomplished with flipping the bowel over on itself, opening the anterior mesenteric border requiring 2 firings of the Endo-SHARLA 60 mm stapler internally and closing the common opening with a purple load as well. The angles of anastomosis were approximated with some 3-0 Vicryl stitch. In this case, there was no mesenteric defect. At this point, the abdomen was irrigated with meropenem-containing saline solution. No further problems were noted. Portion of the previous mesh had been divided in order to gain access to the abdomen. This area had been walled off with meropenem and Zyvox-containing saline solution, soaked sponges, and at that point, those were removed. and the surgeon changed into new gown and gloves. The mesh was then reapproximated with 0 Prolene stitch and underlying this then 3 portions of Interceed mesh were placed in the abdominal wall and the underlying viscera to limit recurrent adhesion formation and the primary fascial closure was accomplished with a running #2 Vicryl stitch, subcutaneous tissue with 2 layers of 3 and 4-0 Vicryl stitch and the skin with raquel. The patient was taken to the recovery room in satisfactory condition. There were no evident complications. Froilan Metz MD /[id number]
== END 2021-03-03 15:05 | disposition home or self-care (01) | DRG 329 ==
LOC: JP.ED 16:42 → JP.MS 21:33
PROVIDERS: ADMIT Family Medicine; ATTEND Surgery
PROC: 0DN80ZZ Release Small Intestine, Open Approach (ICD-10-PCS; principal; 2021-02-28)
PROC: 0DB80ZZ Excision of Small Intestine, Open Approach (ICD-10-PCS; principal; 2021-02-28)
PROC: 02HV33Z Insertion of Infusion Device into Superior Vena Cava, Percutaneous Approach (ICD-10-PCS; principal; 2021-02-28)
PROC: 0DQ80ZZ Repair Small Intestine, Open Approach (ICD-10-PCS; principal; 2021-02-28)
PROC: 0D980ZZ Drainage of Small Intestine, Open Approach (ICD-10-PCS; principal; 2021-02-28)
DX: K56.609 Unspecified intestinal obstruction, unspecified as to partial versus complete obstruction (principal); K56.51 Intestinal adhesions [bands], with partial obstruction; K55.021 Focal (segmental) acute infarction of small intestine; H40.9 Unspecified glaucoma; J43.1 Panlobular emphysema; H91.90 Unspecified hearing loss, unspecified ear; H54.7 Unspecified visual loss; H35.30 Unspecified macular degeneration; E61.1 Iron deficiency; K44.9 Diaphragmatic hernia without obstruction or gangrene; N93.8 Other specified abnormal uterine and vaginal bleeding; M19.90 Unspecified osteoarthritis, unspecified site; M81.0 Age-related osteoporosis without current pathological fracture; E66.9 Obesity, unspecified; E53.8 Deficiency of other specified B group vitamins; D50.9 Iron deficiency anemia, unspecified; Z90.49 Acquired absence of other specified parts of digestive tract; Z98.84 Bariatric surgery status; Z79.899 Other long term (current) drug therapy; Z88.1 Allergy status to other antibiotic agents; Z91.048 Other nonmedicinal substance allergy status; Z88.8 Allergy status to other drugs, medicaments and biological substances; Z86.711 Personal history of pulmonary embolism; Z79.01 Long term (current) use of anticoagulants; Z90.710 Acquired absence of both cervix and uterus; Z98.890 Other specified postprocedural states; Z96.649 Presence of unspecified artificial hip joint; Z96.659 Presence of unspecified artificial knee joint; Z68.35 Body mass index [BMI] 35.0-35.9, adult
CPT/HCPCS: 36415; 74177; 80053; 83605; 83690; 85025; 96374; 96375; 96376; 99285; J1170 ×3; J2405 ×2; J7030 ×2; Q9967; 71045; 71045-26; 74018; 74018-26; 74240; 74240-26; 82728; 83735; 83880; 84100; 85027; 88307; 94640; A9270-GY; C9113; J0131; J0171; J0330; J1100; J1642; J1940; J2020; J2185; J2704; J2710; J2795; J3010; J3410; J3411; J3420; J3475; J3490; J7050; J7120; J7121

== ENCOUNTER 2021-08-25 09:42 | Emergency (ER) | payer MEDICARE, MEDICAID ==
[2021-08-25 10:49] VITALS: BP 145/68; PULSE 66
== END 2021-08-25 10:59 | disposition home or self-care (01) ==
LOC: JP.ED 09:42
DX: F41.9 Anxiety disorder, unspecified (principal); J43.9 Emphysema, unspecified; E66.9 Obesity, unspecified; Z68.33 Body mass index [BMI] 33.0-33.9, adult; Z88.8 Allergy status to other drugs, medicaments and biological substances; Z88.1 Allergy status to other antibiotic agents; Z91.048 Other nonmedicinal substance allergy status; Z79.899 Other long term (current) drug therapy
CPT/HCPCS: 99284

== ENCOUNTER 2022-02-08 20:08 | Emergency (ER) | payer MEDICARE, MEDICAID ==
[2022-02-08 21:01] LABS: ESTIMATED GFR 97 mL/min (>60)
[2022-02-08 21:26] VITALS: BP 115/68; PULSE 82
== END 2022-02-08 21:30 | disposition home or self-care (01) ==
LOC: JP.ED 20:08
DX: E16.2 Hypoglycemia, unspecified (principal); E87.6 Hypokalemia; J44.9 Chronic obstructive pulmonary disease, unspecified; E66.9 Obesity, unspecified; Z68.32 Body mass index [BMI] 32.0-32.9, adult; Z88.1 Allergy status to other antibiotic agents; Z91.09 Other allergy status, other than to drugs and biological substances; Z91.048 Other nonmedicinal substance allergy status; Z98.890 Other specified postprocedural states
CPT/HCPCS: 36415; 80048; 84443; 85025; 99281; 99283

== ENCOUNTER 2023-01-22 14:02 | Emergency (ER) | payer MEDICARE, MEDICAID ==
[2023-01-22 16:59] VITALS: BP 111/60; PULSE 78
== END 2023-01-22 18:32 | disposition home or self-care (01) ==
LOC: JP.ED 14:02
DX: S61.452A Open bite of left hand, initial encounter (principal); J44.9 Chronic obstructive pulmonary disease, unspecified; E66.9 Obesity, unspecified; Z91.048 Other nonmedicinal substance allergy status; Z88.1 Allergy status to other antibiotic agents; Z91.09 Other allergy status, other than to drugs and biological substances; Z68.31 Body mass index [BMI] 31.0-31.9, adult; Z88.8 Allergy status to other drugs, medicaments and biological substances; W54.0XXA Bitten by dog, initial encounter
CPT/HCPCS: 99283

== ENCOUNTER 2023-03-06 20:51 | Emergency (ER) | payer MEDICARE, MEDICAID ==
[2023-03-06 21:09] VITALS: BP 109/54; PULSE 83
== END 2023-03-06 21:50 | disposition home or self-care (01) ==
LOC: JP.ED 20:51
DX: R73.9 Hyperglycemia, unspecified (principal); J43.9 Emphysema, unspecified; E66.9 Obesity, unspecified; Z91.09 Other allergy status, other than to drugs and biological substances; Z91.048 Other nonmedicinal substance allergy status; Z88.1 Allergy status to other antibiotic agents; Z88.8 Allergy status to other drugs, medicaments and biological substances; Z68.31 Body mass index [BMI] 31.0-31.9, adult
CPT/HCPCS: 36415; 82947; 83036; 99284

== ENCOUNTER 2023-11-28 16:19 | Emergency (ER) | payer MEDICARE, OTHER ==
[2023-11-28 18:15] VITALS: BP 124/62; PULSE 71
== END 2023-11-28 19:13 | disposition home or self-care (01) ==
LOC: JP.ED 16:19
DX: J44.9 Chronic obstructive pulmonary disease, unspecified (principal); Z88.8 Allergy status to other drugs, medicaments and biological substances; Z91.048 Other nonmedicinal substance allergy status; Z88.1 Allergy status to other antibiotic agents; Z91.030 Bee allergy status; Z91.040 Latex allergy status; Z79.899 Other long term (current) drug therapy; Z90.49 Acquired absence of other specified parts of digestive tract; Z90.710 Acquired absence of both cervix and uterus
CPT/HCPCS: 71046; 71046-26; 99284

== ENCOUNTER 2024-04-08 08:57 | Emergency (ER) | payer MEDICARE, OTHER ==
[2024-04-08 09:17] VITALS: BP 120/69; PULSE 74
== END 2024-04-08 10:56 | disposition home or self-care (01) ==
LOC: JP.ED 08:57
DX: S61.451A Open bite of right hand, initial encounter (principal); J45.909 Unspecified asthma, uncomplicated; E66.9 Obesity, unspecified; Z68.30 Body mass index [BMI] 30.0-30.9, adult; Z90.49 Acquired absence of other specified parts of digestive tract; Z90.710 Acquired absence of both cervix and uterus; Z79.899 Other long term (current) drug therapy; Z91.048 Other nonmedicinal substance allergy status; Z91.040 Latex allergy status; Z91.030 Bee allergy status; Z88.1 Allergy status to other antibiotic agents; Z88.8 Allergy status to other drugs, medicaments and biological substances; W54.0XXA Bitten by dog, initial encounter
CPT/HCPCS: 99283

== ENCOUNTER 2024-09-19 20:29 | Emergency (ER) | payer MEDICARE, OTHER ==
[2024-09-19 20:55] VITALS: BP 122/56; PULSE 73
== END 2024-09-19 22:55 | disposition home or self-care (01) ==
LOC: JP.ED 20:29
DX: S02.32XA Fracture of orbital floor, left side, initial encounter for closed fracture (principal); S00.83XA Contusion of other part of head, initial encounter; J44.9 Chronic obstructive pulmonary disease, unspecified; E66.9 Obesity, unspecified; Z90.49 Acquired absence of other specified parts of digestive tract; Z90.710 Acquired absence of both cervix and uterus; Z79.899 Other long term (current) drug therapy; Z79.51 Long term (current) use of inhaled steroids; Z91.040 Latex allergy status; Z91.030 Bee allergy status; Z91.09 Other allergy status, other than to drugs and biological substances; Z91.048 Other nonmedicinal substance allergy status; Z88.1 Allergy status to other antibiotic agents; W19.XXXA Unspecified fall, initial encounter
CPT/HCPCS: 70450; 70486; 99283; 99284

== ENCOUNTER 2024-12-06 14:11 | Emergency (ER) | payer MEDICARE, OTHER ==
[2024-12-06 15:07] VITALS: PULSE 71
[2024-12-06 15:33] VITALS: BP 97/47
[2024-12-06 15:34] LABS: BASOPHILS ABSOLUTE AUTO 0.07 K/uL (0.00-0.10); BASOPHILS PERCENT AUTO 0.6 % (0.1-1.3); EOSINOPHILS ABSOLUTE AUTO 0.08 K/uL (0.00-0.40); EOSINOPHILS PERCENT AUTO 0.7 % (0.0-5.4); HEMATOCRIT 41.2 % (34.3-46.0); HEMOGLOBIN 13.4 g/dL (11.2-15.5); IMMATURE GRAN ABSOLUTE AUTO 0.03 K/uL (0.00-0.23); IMMATURE GRAN PERCENT AUTO 0.3 % (0.0-0.7); LYMPHOCYTES ABSOLUTE AUTO 0.84 K/uL (0.8-3.3); LYMPHOCYTES PERCENT AUTO 7.8 % (11.4-47.7); MEAN CORPUSCULAR HEMOGLOBIN 31.2 pg (31.6-35.5); MEAN CORPUSCULAR HGB CONC 32.5 g/dL (31.6-35.5); MONOCYTES ABSOLUTE AUTO 0.63 K/uL (0.20-0.90); MONOCYTES PERCENT AUTO 5.8 % (3.3-12.6); NEUTROPHILS ABSOLUTE AUTO 9.18 K/uL (1.0-7.6); NEUTROPHILS PERCENT AUTO 84.8 % (40.0-78.1); PLATELET COUNT,PLT 318 K/uL (130-375); RED BLOOD CELL COUNT 4.29 M/uL (3.77-5.24); WHITE BLOOD CELL COUNT,WBC 10.8 K/uL (3.2-11.0)
[2024-12-06] MEDS: Iopamidol 612 MG/ML 100 ML Bottle IV PRN (15:43)
[2024-12-06] MEDS: Sodium Chloride 0.9% 10 ML Syringe FLUSH PRN (15:43)
[2024-12-06] MEDS: Sodium Chloride 0.9% 80 ML IV ONE (15:43)
[2024-12-06] MEDS: Sodium Chloride 0.9% 1,000 ML IV ONE (15:50)
[2024-12-06 15:51] LABS: PROTHROMBIN TIME 10.2 sec (9.2-10.6)
[2024-12-06 15:55] LABS: ALANINE AMINOTRANSFERASE,ALT 60 U/L (12-78); ALBUMIN 3.4 g/dL (3.4-5.0); ALKALINE PHOSPHATASE 134 U/L (46-116); ANION GAP 8.2 mmol/L (5.0-14.0); ASPARTATE AMNIOTRANSFERASE,AST 40 U/L (15-37); BILIRUBIN TOTAL 0.5 mg/dL (0.2-1.0); BLOOD UREA NITROGEN,BUN 22 mg/dL (7-18); CALCIUM 8.9 mg/dL (8.5-10.1); CARBON DIOXIDE,CO2 30 mmol/L (21-32); CHLORIDE,CL 103 mmol/L (100-108); CREATININE 0.8 mg/dL (0.6-1.0); ESTIMATED GFR 81 mL/min (>60); GLUCOSE RANDOM 109 mg/dL (74-106); POTASSIUM,K 3.9 mmol/L (3.6-5.2); PROTEIN TOTAL,TP 6.8 g/dL (6.4-8.2); SODIUM,NA 141 mmol/L (140-148)
== END 2024-12-06 17:12 | disposition home or self-care (01) ==
LOC: JP.ED 14:11
DX: R10.84 Generalized abdominal pain (principal); J44.89 Other specified chronic obstructive pulmonary disease; E66.9 Obesity, unspecified; Z90.49 Acquired absence of other specified parts of digestive tract; Z90.710 Acquired absence of both cervix and uterus; Z79.899 Other long term (current) drug therapy; Z91.048 Other nonmedicinal substance allergy status; Z88.8 Allergy status to other drugs, medicaments and biological substances; Z91.030 Bee allergy status; Z91.040 Latex allergy status
CPT/HCPCS: 36415; 74177; 80053; 83690; 85025; 85610; 96360; 99284; J7030; Q9967; 99283

== ENCOUNTER 2024-12-27 22:10 | Emergency (ER) | payer MEDICARE, OTHER ==
[2024-12-27 22:59] LABS: BASOPHILS ABSOLUTE AUTO 0.03 K/uL (0.00-0.10); BASOPHILS PERCENT AUTO 0.9 % (0.1-1.3); EOSINOPHILS ABSOLUTE AUTO 0.03 K/uL (0.00-0.40); EOSINOPHILS PERCENT AUTO 0.9 % (0.0-5.4); HEMATOCRIT 42.1 % (34.3-46.0); HEMOGLOBIN 14.3 g/dL (11.2-15.5); IMMATURE GRAN PERCENT AUTO 0.3 % (0.0-0.7); LYMPHOCYTES ABSOLUTE AUTO 0.69 K/uL (0.8-3.3); LYMPHOCYTES PERCENT AUTO 20.5 % (11.4-47.7); MEAN CORPUSCULAR HEMOGLOBIN 31.1 pg (31.6-35.5); MEAN CORPUSCULAR VOLUME 91.5 fL (81.4-99.0); MONOCYTES ABSOLUTE AUTO 0.53 K/uL (0.20-0.90); MONOCYTES PERCENT AUTO 15.7 % (3.3-12.6); NEUTROPHILS ABSOLUTE AUTO 2.08 K/uL (1.0-7.6); NEUTROPHILS PERCENT AUTO 61.7 % (40.0-78.1); PLATELET COUNT,PLT 91 K/uL (130-375); WHITE BLOOD CELL COUNT,WBC 3.4 K/uL (3.2-11.0)
[2024-12-27] MEDS: Aspirin 81 MG Tab.Chew PO ONE (23:02)
[2024-12-27] MEDS: Sodium Chloride 0.9% 10 ML Syringe FLUSH PRN (23:02)
[2024-12-27 23:06] LABS: IMMATURE GRAN ABSOLUTE AUTO 0.01 K/uL (0.00-0.23)
[2024-12-27 23:19] LABS: ALANINE AMINOTRANSFERASE,ALT 22 U/L (12-78); ALBUMIN 3.3 g/dL (3.4-5.0); ALKALINE PHOSPHATASE 129 U/L (46-116); ASPARTATE AMNIOTRANSFERASE,AST 43 U/L (15-37); BILIRUBIN TOTAL 1.2 mg/dL (0.2-1.0); BLOOD UREA NITROGEN,BUN 13 mg/dL (7-18); CALCIUM 8.7 mg/dL (8.5-10.1); CARBON DIOXIDE,CO2 32 mmol/L (21-32); CHLORIDE,CL 93 mmol/L (100-108); CREATININE 0.9 mg/dL (0.6-1.0); EST CRCL DRUG DOSING (CG) 57.56 mL/min; ESTIMATED GFR 71 mL/min (>60); GLUCOSE RANDOM 84 mg/dL (74-106); POTASSIUM,K 3.3 mmol/L (3.6-5.2); PROTEIN TOTAL,TP 6.5 g/dL (6.4-8.2); SODIUM,NA 130 mmol/L (140-148); TROPONIN I HIGH SENSITIVITY 9.6 pg/mL (<=60.3)
[2024-12-27 23:20] LABS: ANION GAP 8.3 mmol/L (5.0-14.0)
[2024-12-27 23:43] LABS: APPEARANCE,URINE SLIGHTLY CLOUDY (CLEAR); BILIRUBIN,URINE NEGATIVE (NEGATIVE); COLOR,URINE YELLOW (YELLOW); GLUCOSE,URINE NEGATIVE (NEGATIVE); KETONES,URINE NEGATIVE (NEGATIVE); LEUKOCYTE ESTERASE,URINE MODERATE (NEGATIVE); NITRITE,URINE NEGATIVE (NEGATIVE); OCCULT BLOOD,URINE NEGATIVE (NEGATIVE); PROTEIN,URINE NEGATIVE (NEGATIVE); UROBILINOGEN,URINE 0.2 EU/dL (0.2-1.0)
[2024-12-27 23:58] LABS: AMORPHOUS SEDIMENT,URINE NOT SEEN; BACTERIA,URINE MANY; EPITHELIAL CELLS,URINE RARE; MUCUS,URINE NOT SEEN; RBC,URINE 0-5 (0-5); WBC,URINE 40-50 (0-5)
[2024-12-28] MEDS: Sulfamethoxazole/Trimethoprim 800-160 MG Tab PO ONE (00:51)
[2024-12-28] MEDS: Sodium Chloride 0.9% 1,000 ML IV SCH (00:51)
[2024-12-28 08:09] VITALS: PULSE 96
[2024-12-28 09:55] VITALS: BP 105/76
== END 2024-12-28 10:09 ==
LOC: JP.ED 22:10
DX: R27.0 Ataxia, unspecified (principal); R41.0 Disorientation, unspecified; E87.1 Hypo-osmolality and hyponatremia; N39.0 Urinary tract infection, site not specified; Z79.51 Long term (current) use of inhaled steroids; Z91.030 Bee allergy status; Z91.040 Latex allergy status; Z91.048 Other nonmedicinal substance allergy status; Z79.899 Other long term (current) drug therapy
CPT/HCPCS: 36415; 70450; 71045; 80053; 81001; 82947; 83605; 84484; 85025; 87086; 87088; 87186; 93005; 93010; 96360; 99285; A9270; J7030

== ENCOUNTER 2025-01-03 12:25 | Inpatient (IN) | payer MEDICARE, OTHER ==
[2025-01-03] MEDS: fentaNYL 50 MCG/ML SDV IVPUSH ONE (12:57)
[2025-01-03 15:10] LABS: HEMATOCRIT 41.2 % (34.3-46.0); HEMOGLOBIN 13.5 g/dL (11.2-15.5); MEAN CORPUSCULAR HEMOGLOBIN 30.7 pg (31.6-35.5); MEAN CORPUSCULAR HGB CONC 32.8 g/dL (31.6-35.5); MEAN CORPUSCULAR VOLUME 93.6 fL (81.4-99.0); RED BLOOD CELL COUNT 4.4 M/uL (3.77-5.24)
[2025-01-03] MEDS ORDERED: Naloxone 0.4 MG/ML SDV IVPUSH PRN (15:23)
[2025-01-03] MEDS ORDERED: Ondansetron 4 MG/2 ML SDV IV PRN (15:23)
[2025-01-03] MEDS ORDERED: HYDROmorphone 0.5 MG/0.5 ML Syringe IVPUSH PRN (15:23)
[2025-01-03] MEDS ORDERED: Polyethylene Glycol 3350 Powder 17 GM Packet PO PRN (15:23)
[2025-01-03] MEDS ORDERED: Sodium Chloride 0.9% 10 ML Syringe FLUSH PRN (15:23)
[2025-01-03 15:34] LABS: A/G RATIO 0.9 (1.2-2.2); ALANINE AMINOTRANSFERASE,ALT 25 U/L (12-78); ALBUMIN 3.2 g/dL (3.4-5.0); ALKALINE PHOSPHATASE 109 U/L (46-116); ASPARTATE AMNIOTRANSFERASE,AST 30 U/L (15-37); BILIRUBIN TOTAL 0.8 mg/dL (0.2-1.0); BLOOD UREA NITROGEN,BUN 12 mg/dL (7-18); CALCIUM 8.7 mg/dL (8.5-10.1); CARBON DIOXIDE,CO2 32 mmol/L (21-32); CHLORIDE,CL 99 mmol/L (100-108); CREATININE 0.9 mg/dL (0.6-1.0); ESTIMATED GFR 71 mL/min (>60); GLUCOSE RANDOM 107 mg/dL (74-106); MAGNESIUM 1.9 mg/dL (1.8-2.4); POTASSIUM,K 3.9 mmol/L (3.6-5.2); PROTEIN TOTAL,TP 6.8 g/dL (6.4-8.2); SODIUM,NA 138 mmol/L (140-148)
[2025-01-03 15:36] LABS: ANION GAP 10.9 mmol/L (5.0-14.0)
[2025-01-03] MEDS: Sodium Chloride 0.9% 1,000 ML IV SCH (15:38)
[2025-01-03] MEDS: Enoxaparin 40 MG/0.4 ML Syringe SUBCUT SCH (16:12)
[2025-01-03] MEDS: oxyCODONE 5 MG Tab PO PRN (17:12)
[2025-01-03] MEDS: Pregabalin 75 MG Cap PO SCH (21:14)
[2025-01-03] MEDS: hydrOXYzine HCl 25 MG Tab PO SCH (21:14)
[2025-01-04 05:53] LABS: HEMATOCRIT 34.5 % (34.3-46.0); HEMOGLOBIN 11.5 g/dL (11.2-15.5); MEAN CORPUSCULAR HGB CONC 33.3 g/dL (31.6-35.5); RED BLOOD CELL COUNT 3.71 M/uL (3.77-5.24); WHITE BLOOD CELL COUNT,WBC 6.3 K/uL (3.2-11.0)
[2025-01-04 06:11] LABS: CALCIUM 8.1 mg/dL (8.5-10.1); CREATININE 0.6 mg/dL (0.6-1.0); EST CRCL DRUG DOSING (CG) 69.6 mL/min; POTASSIUM,K 3.6 mmol/L (3.6-5.2)
[2025-01-04 06:12] LABS: ANION GAP 10.6 mmol/L (5.0-14.0)
[2025-01-04] MEDS: Furosemide 40 MG Tab PO SCH (08:18)
[2025-01-04] MEDS: FLUoxetine 10 MG Cap PO SCH (08:18)
[2025-01-04] MEDS: Formoterol/Mometasone 100-5 MCG 8.8 GM Inhaler IH SCH (08:19)
[2025-01-05 08:24] LABS: HEMATOCRIT 37.8 % (34.3-46.0); HEMOGLOBIN 12.5 g/dL (11.2-15.5); MEAN CORPUSCULAR HEMOGLOBIN 30.9 pg (31.6-35.5); MEAN CORPUSCULAR HGB CONC 33.1 g/dL (31.6-35.5); MEAN CORPUSCULAR VOLUME 93.6 fL (81.4-99.0); RED BLOOD CELL COUNT 4.04 M/uL (3.77-5.24); WHITE BLOOD CELL COUNT,WBC 9.4 K/uL (3.2-11.0)
[2025-01-05 08:43] LABS: A/G RATIO 0.7 (1.2-2.2); ALANINE AMINOTRANSFERASE,ALT 18 U/L (12-78); ALBUMIN 2.5 g/dL (3.4-5.0); ALKALINE PHOSPHATASE 94 U/L (46-116); ASPARTATE AMNIOTRANSFERASE,AST 19 U/L (15-37); BILIRUBIN TOTAL 1.3 mg/dL (0.2-1.0); BLOOD UREA NITROGEN,BUN 10 mg/dL (7-18); C-REACTIVE PROTEIN 16.86 mg/dL (<0.50); CALCIUM 8.5 mg/dL (8.5-10.1); CARBON DIOXIDE,CO2 30 mmol/L (21-32); CHLORIDE,CL 100 mmol/L (100-108); CREATININE 0.5 mg/dL (0.6-1.0); EST CRCL DRUG DOSING (CG) 83.52 mL/min; ESTIMATED GFR 103 mL/min (>60); GLUCOSE RANDOM 99 mg/dL (74-106); POTASSIUM,K 3.9 mmol/L (3.6-5.2); PROTEIN TOTAL,TP 6.2 g/dL (6.4-8.2); SODIUM,NA 136 mmol/L (140-148)
[2025-01-05 08:52] LABS: ANION GAP 9.9 mmol/L (5.0-14.0)
[2025-01-05 13:18] LABS: APPEARANCE,URINE CLOUDY (CLEAR); BILIRUBIN,URINE NEGATIVE (NEGATIVE); COLOR,URINE YELLOW (YELLOW); GLUCOSE,URINE NEGATIVE (NEGATIVE); KETONES,URINE NEGATIVE (NEGATIVE); LEUKOCYTE ESTERASE,URINE MODERATE (NEGATIVE); NITRITE,URINE NEGATIVE (NEGATIVE); OCCULT BLOOD,URINE TRACE-INTACT (NEGATIVE); PROTEIN,URINE NEGATIVE (NEGATIVE); UROBILINOGEN,URINE 0.2 EU/dL (0.2-1.0)
[2025-01-05 13:28] LABS: AMORPHOUS SEDIMENT,URINE NOT SEEN; BACTERIA,URINE MANY; EPITHELIAL CELLS,URINE NOT SEEN; MUCUS,URINE RARE; RBC,URINE 0-5 (0-5); WBC,URINE 30-40 (0-5)
[2025-01-05] MEDS: cefTRIAXone 1 GM in Sodium Chloride 0.9% 50 ML IV SCH (14:33)
[2025-01-06] MEDS: Cyclobenzaprine 10 MG Tab PO PRN (17:28)
[2025-01-07] MEDS: Magnesium Hydroxide 400 MG/5 ML Susp 30 ML Cup PO SCH (19:40)
[2025-01-08] MEDS: Bisacodyl 10 MG Supp RECTAL ONE (05:21)
[2025-01-08] MEDS: Acetaminophen 325 MG Tab PO PRN (08:48)
[2025-01-08] MEDS: Cefdinir 300 MG Cap PO SCH (08:51)
[2025-01-08 12:09] VITALS: BP 96/54; PULSE 79
== END 2025-01-08 13:30 | DRG 534 ==
LOC: JP.ED 12:25 → JP.MS 14:55
PROVIDERS: ADMIT Hospitalist; ATTEND Internal Medicine
DX: S72.91XA Unspecified fracture of right femur, initial encounter for closed fracture (principal); J44.9 Chronic obstructive pulmonary disease, unspecified; M97.01XA Periprosthetic fracture around internal prosthetic right hip joint, initial encounter; N30.00 Acute cystitis without hematuria; Z68.27 Body mass index [BMI] 27.0-27.9, adult; H91.90 Unspecified hearing loss, unspecified ear; H54.7 Unspecified visual loss; J44.89 Other specified chronic obstructive pulmonary disease; M19.90 Unspecified osteoarthritis, unspecified site; R51.9 Headache, unspecified; F32.A Depression, unspecified; F43.10 Post-traumatic stress disorder, unspecified; E66.9 Obesity, unspecified; E53.8 Deficiency of other specified B group vitamins; Z96.659 Presence of unspecified artificial knee joint; D50.9 Iron deficiency anemia, unspecified; Z96.641 Presence of right artificial hip joint; Z96.619 Presence of unspecified artificial shoulder joint; B96.20 Unspecified Escherichia coli [E. coli] as the cause of diseases classified elsewhere; Z98.84 Bariatric surgery status; Z88.8 Allergy status to other drugs, medicaments and biological substances; Z87.19 Personal history of other diseases of the digestive system; Z86.718 Personal history of other venous thrombosis and embolism; Z86.711 Personal history of pulmonary embolism; Z98.49 Cataract extraction status, unspecified eye; Z90.49 Acquired absence of other specified parts of digestive tract; Z98.890 Other specified postprocedural states; Z90.710 Acquired absence of both cervix and uterus; Z90.722 Acquired absence of ovaries, bilateral; Z88.1 Allergy status to other antibiotic agents; Z91.048 Other nonmedicinal substance allergy status; Z91.030 Bee allergy status; Z91.040 Latex allergy status; Z79.899 Other long term (current) drug therapy; Z79.891 Long term (current) use of opiate analgesic; Z79.51 Long term (current) use of inhaled steroids; Z68.30 Body mass index [BMI] 30.0-30.9, adult; W07.XXXA Fall from chair, initial encounter; Y92.009 Unspecified place in unspecified non-institutional (private) residence as the place of occurrence of the external cause
CPT/HCPCS: 36415; 73502 ×2; 96374; 99284; 99285; J3010; 71045; 71045-26; 73501-26-RT; 73501-RT; 80048; 80053; 81001; 83735; 85027; 86140; 87040; 87086; 87088; 87186; 94640; 97110-GP; 97161-GP; 97165-GO; 97530-GP; 97535-GO; 99222; 99231; 99232; 99239; A9270-GY; J0696; J1650; J7030

== ENCOUNTER 2025-03-02 11:10 | Emergency (ER) | payer MEDICARE, OTHER ==
[2025-03-02] MEDS: Acetaminophen/HYDROcodone 325-5 MG Tab PO ONE (14:12)
[2025-03-02 16:26] VITALS: BP 115/65; PULSE 76
== END 2025-03-02 16:30 | disposition home or self-care (01) ==
LOC: JP.ED 11:10
DX: M79.89 Other specified soft tissue disorders (principal); J44.9 Chronic obstructive pulmonary disease, unspecified; Z88.8 Allergy status to other drugs, medicaments and biological substances; Z91.040 Latex allergy status; Z91.048 Other nonmedicinal substance allergy status; Z88.1 Allergy status to other antibiotic agents; Z91.030 Bee allergy status; Z91.018 Allergy to other foods; Z79.899 Other long term (current) drug therapy
CPT/HCPCS: 36415; 85379; 93971; 99284; A9270; 99283